=== PATIENT | female | born 1960 | race African-American/Black ===

== ENCOUNTER 2023-01-18 14:59 | Inpatient (IN) | payer OTHER ==
[2023-01-18 16:29] LABS: BASO % 0.6 % (0-2.0); EOS % 0.6 % (0-4.5); HEMATOCRIT 40.1 % (32.4-45.2); HEMOGLOBIN 13.7 GM/dL (10.7-15.3); LYMPH % 8.6 % (8-40); MCH 27.8 pg (25.7-33.7); MCHC 34.2 g/dl (32.0-36.0); MEAN CELL VOLUME 81.3 fl (80-96); MEAN PLT VOLUME 9.3 fl (7.5-11.1); MONO % 5.7 % (3.8-10.2); NEUT % 84.5 % (42.8-82.8); PLATELET COUNT 257 10^3/uL (134-434); RBC 4.92 M/mm3 (3.60-5.2); RDW 14.7 % (11.6-15.6); WHITE BLOOD COUNT 6.1 K/mm3 (4.0-10.0)
[2023-01-18 16:32] LABS: VENOUS BASE EXCESS -1.4 mmol/L (-2-2); VENOUS O2 SATURATION 40.6 % (70-80); VENOUS PH 7.317 (7.310-7.410)
[2023-01-18 16:37] LABS: INR 1.02 (0.83-1.09); PROTHROMBIN TIME (PATIENT) 11.8 SEC (9.7-13.0)
[2023-01-18 16:39] LABS: ACTIVATED PTT 30.1 SECONDS (25.2-36.5)
[2023-01-18 16:50] LABS: CHLORIDE 114 mmol/L (98-107); POTASSIUM 5.4 mmol/L (3.5-5.1); SODIUM 143 mmol/L (136-145)
[2023-01-18 16:52] LABS: ALBUMIN 3.7 g/dl (3.4-5.0); ANION GAP 5 MMOL/L (8-16); BLOOD UREA NITROGEN 89.5 mg/dL (7-18); CO2 25 mmol/L (21-32); GLUCOSE,RANDOM 140 mg/dL (74-106)
[2023-01-18 16:55] LABS: CREATININE 5.9 mg/dL (0.55-1.3); SGOT/AST 26 U/L (15-37); SGPT/ALT 16 U/L (13-61)
[2023-01-18 16:57] LABS: BILIRUBIN,TOTAL 0.4 mg/dL (0.2-1); TOT PROT 8.8 g/dl (6.4-8.2)
[2023-01-18 16:58] LABS: ALK PHOS 90 U/L (45-117)
[2023-01-18 17:03] LABS: CALCIUM 14.8 mg/dL (8.5-10.1)
[2023-01-18] MEDS ORDERED: SODIUM CHLORIDE 0.9% 500 ML INFUS.BAG IV ONE ×2 (17:15→17:25)
[2023-01-18 17:16] LABS: EPI CELLS 8 /uL (0-25.1); HYALINE CASTS 0 /uL (0-3.1); URINE APPEARANCE CLOUDY; URINE BACTERIA >9,000 /uL (0-1359); URINE BILIRUBIN NEGATIVE (NEGATIVE); URINE COLOR YELLOW; URINE GLUCOSE (UA) NEGATIVE (NEGATIVE); URINE KETONE NEGATIVE (NEGATIVE); URINE LEUK ESTERASE 3+ (NEGATIVE); URINE NITRITE POSITIVE (NEGATIVE); URINE PROTEIN 3+ (NEGATIVE); URINE RBC 10 /uL (0-23.9); URINE UROBILINOGEN 0.2 mg/dL (0.2-1.0); URINE WBC 682 /uL (0-25.8)
[2023-01-18] MEDS ORDERED: CEFTRIAXONE 1,000 MG in DEXTROSE 5%-WATER - 50 ML IVPB ONE (17:33)
[2023-01-18 17:39] LABS: YEAST NEGATIVE (NEGATIVE)
[2023-01-18] MEDS ORDERED: CEFTRIAXONE 1 GM/50 ML BAG ONE (17:56)
[2023-01-18] MEDS: CALCITONIN - SALMON SYNTHETIC 400 UNIT/2 ML VIAL IM SCH (18:15)
[2023-01-18 19:06] LABS: CHLORIDE 114 mmol/L (98-107); POTASSIUM 4.8 mmol/L (3.5-5.1); SODIUM 144 mmol/L (136-145)
[2023-01-18 19:08] LABS: ANION GAP 7 MMOL/L (8-16); BLOOD UREA NITROGEN 88.3 mg/dL (7-18); CO2 23 mmol/L (21-32); GLUCOSE,RANDOM 133 mg/dL (74-106)
[2023-01-18 19:17] LABS: CALCIUM 14.5 mg/dL (8.5-10.1)
[2023-01-18] MEDS: SODIUM CHLORIDE 1,000 ML IV SCH (22:04)
[2023-01-18 22:29] LABS: LIPASE 265 U/L (73-393)
[2023-01-19 00:51] VITALS: BMI 26.6
[2023-01-19] MEDS: CALCITONIN - SALMON SYNTHETIC 400 UNIT/2 ML VIAL IM SCH (06:35)
[2023-01-19] MEDS ORDERED: BISACODYL 5 MG TABLET.DR (FP) PO PRN (06:42)
[2023-01-19] MEDS ORDERED: ONDANSETRON *ODT* 4 MG TABLET SL PRN (06:45)
[2023-01-19] MEDS: cloNIDine HCL 0.1 MG TABLET PO SCH ×3 (07:05→21:30)
[2023-01-19 07:46] LABS: BASO % 0.6 % (0-2.0); EOS % 0.6 % (0-4.5); HEMATOCRIT 34.6 % (32.4-45.2); LYMPH % 6.6 % (8-40); MCHC 34.8 g/dl (32.0-36.0); MEAN CELL VOLUME 80.5 fl (80-96); MEAN PLT VOLUME 8.8 fl (7.5-11.1); MONO % 8.7 % (3.8-10.2); NEUT % 83.5 % (42.8-82.8); PLATELET COUNT 247 10^3/uL (134-434); RDW 14.7 % (11.6-15.6); WHITE BLOOD COUNT 7.3 K/mm3 (4.0-10.0)
[2023-01-19 08:00] LABS: POTASSIUM 4.5 mmol/L (3.5-5.1)
[2023-01-19 08:08] LABS: ALBUMIN 3.2 g/dl (3.4-5.0); BLOOD UREA NITROGEN 80.7 mg/dL (7-18); CALCIUM 13.1 mg/dL (8.5-10.1)
[2023-01-19 08:09] LABS: CREATININE 5.5 mg/dL (0.55-1.3)
[2023-01-19 08:10] LABS: CHOLESTEROL 207 mg/dL (50-200)
[2023-01-19 08:11] LABS: BILIRUBIN,TOTAL 0.4 mg/dL (0.2-1); LDL CHOLESTEROL (ONLY SJRH) 132 mg/dL (5-100); TOT PROT 7.8 g/dl (6.4-8.2)
[2023-01-19 08:14] LABS: HDL CHOLESTEROL 36 mg/dL (40-60)
[2023-01-19] MEDS: CALCIUM ACETATE 667 MG CAPSULE (FP) PO SCH ×3 (09:18→18:28)
[2023-01-19] MEDS: CEFTRIAXONE 1 GM in DEXTROSE 5%-WATER - 50 ML IVPB SCH (09:28)
[2023-01-19] MEDS: SERTRALINE HCL 50 MG TABLET (FP) PO SCH (09:28)
[2023-01-19] MEDS: CARVEDILOL 25 MG TABLET (FP) PO SCH ×2 (09:28→21:30)
[2023-01-19] MEDS: SODIUM CHLORIDE 1,000 ML IV SCH (09:29)
[2023-01-19] MEDS ORDERED: SODIUM CHLORIDE 0.45% 1,000 ML IV SCH (11:45)
[2023-01-19] MEDS: SODIUM CHLORIDE 0.45% 1,000 ML IV SCH (13:00)
[2023-01-20] MEDS: cloNIDine HCL 0.1 MG TABLET PO SCH ×3 (06:03→21:33)
[2023-01-20 07:40] LABS: BLOOD UREA NITROGEN 70.6 mg/dL (7-18); CREATININE 4.9 mg/dL (0.55-1.3)
[2023-01-20 07:41] LABS: BILIRUBIN,TOTAL 0.3 mg/dL (0.2-1)
[2023-01-20 07:42] LABS: TOT PROT 7.5 g/dl (6.4-8.2)
[2023-01-20 07:44] LABS: CALCIUM 11.9 mg/dL (8.5-10.1)
[2023-01-20] MEDS: CALCIUM ACETATE 667 MG CAPSULE (FP) PO SCH ×3 (07:51→17:10)
[2023-01-20] MEDS: CARVEDILOL 25 MG TABLET (FP) PO SCH ×3 (08:54→21:33)
[2023-01-20] MEDS: SERTRALINE HCL 50 MG TABLET (FP) PO SCH ×2 (08:54→09:10)
[2023-01-20] MEDS: CEFTRIAXONE 1 GM in DEXTROSE 5%-WATER - 50 ML IVPB SCH (09:12)
[2023-01-20] MEDS: SODIUM CHLORIDE 0.45% 1,000 ML IV SCH ×2 (14:00→21:45)
[2023-01-20] MEDS: ASPIRIN 81 MG CHEWABLE TABLETS PO SCH (14:55)
[2023-01-20] MEDS: HEPARIN NA (PORCINE) 5,000 UNITS/ML 1ML VIAL SQ SCH (21:32)
[2023-01-20] MEDS: ATORVASTATIN CA 40 MG TABLET (FP) PO SCH (21:32)
[2023-01-21] MEDS: cloNIDine HCL 0.1 MG TABLET PO SCH ×3 (05:59→22:17)
[2023-01-21] MEDS: SODIUM CHLORIDE 0.45% 1,000 ML IV SCH ×3 (05:59→14:53)
[2023-01-21] MEDS: CARVEDILOL 25 MG TABLET (FP) PO SCH ×2 (09:38→22:16)
[2023-01-21] MEDS: ASPIRIN 81 MG CHEWABLE TABLETS PO SCH (09:38)
[2023-01-21] MEDS: CALCIUM ACETATE 667 MG CAPSULE (FP) PO SCH ×3 (09:38→18:56)
[2023-01-21] MEDS: CEFTRIAXONE 1 GM in DEXTROSE 5%-WATER - 50 ML IVPB SCH (09:38)
[2023-01-21] MEDS: SERTRALINE HCL 50 MG TABLET (FP) PO SCH (09:38)
[2023-01-21] MEDS: HEPARIN NA (PORCINE) 5,000 UNITS/ML 1ML VIAL SQ SCH ×2 (09:38→22:16)
[2023-01-21] MEDS ORDERED: amLODIPine BESYLATE 5 MG TABLET (FP) PO SCH (10:00)
[2023-01-21] MEDS: ATORVASTATIN CA 40 MG TABLET (FP) PO SCH (22:15)
[2023-01-22] MEDS: cloNIDine HCL 0.1 MG TABLET PO SCH ×5 (06:52→22:40)
[2023-01-22] MEDS: SODIUM CHLORIDE 0.45% 1,000 ML IV SCH ×2 (08:58→15:01)
[2023-01-22] MEDS: CALCIUM ACETATE 667 MG CAPSULE (FP) PO SCH ×4 (09:00→17:45)
[2023-01-22] MEDS ORDERED: MEGESTROL ACETATE 400 MG/10 ML UNIT DOSE CUP PO SCH (10:00)
[2023-01-22] MEDS ORDERED: amLODIPine BESYLATE 10 MG TABLET (FP) PO SCH (10:00)
[2023-01-22 10:37] LABS: BASO % 0.7 % (0-2.0); EOS % 3.3 % (0-4.5); HEMATOCRIT 34.6 % (32.4-45.2); HEMOGLOBIN 11.7 GM/dL (10.7-15.3); LYMPH % 11.1 % (8-40); MCH 26.9 pg (25.7-33.7); MCHC 33.9 g/dl (32.0-36.0); MEAN CELL VOLUME 79.4 fl (80-96); MEAN PLT VOLUME 7.9 fl (7.5-11.1); MONO % 9.8 % (3.8-10.2); NEUT % 75.1 % (42.8-82.8); PLATELET COUNT 241 10^3/uL (134-434); RBC 4.36 M/mm3 (3.60-5.2); RDW 14.5 % (11.6-15.6); WHITE BLOOD COUNT 6.2 K/mm3 (4.0-10.0)
[2023-01-22] MEDS: CEFTRIAXONE 1 GM in DEXTROSE 5%-WATER - 50 ML IVPB SCH (10:38)
[2023-01-22] MEDS: ASPIRIN 81 MG CHEWABLE TABLETS PO SCH (10:39)
[2023-01-22] MEDS: HEPARIN NA (PORCINE) 5,000 UNITS/ML 1ML VIAL SQ SCH ×3 (10:39→22:39)
[2023-01-22] MEDS: SERTRALINE HCL 50 MG TABLET (FP) PO SCH (10:40)
[2023-01-22] MEDS: CARVEDILOL 25 MG TABLET (FP) PO SCH (10:46)
[2023-01-22 11:00] LABS: POTASSIUM 3.8 mmol/L (3.5-5.1)
[2023-01-22 11:05] LABS: CREATININE 3.7 mg/dL (0.55-1.3)
[2023-01-22 11:07] LABS: BILIRUBIN,TOTAL 0.3 mg/dL (0.2-1); TOT PROT 7.2 g/dl (6.4-8.2)
[2023-01-22] MEDS ORDERED: SODIUM CHLORIDE 0.45% 1,000 ML IV SCH (14:30)
[2023-01-22] MEDS ORDERED: ONDANSETRON *ODT* 4 MG TABLET SL PRN (14:30)
[2023-01-22] MEDS: METOPROLOL TARTRATE 5 MG/5 ML VIAL IVPB SCH ×2 (16:10→22:27)
[2023-01-22] MEDS: DEXTROSE 5%-0.45% SALINE 1,000 ML IV SCH (16:15)
[2023-01-22] MEDS: BISACODYL 5 MG TABLET.DR (FP) PO PRN (18:17)
[2023-01-22] MEDS: hydrALAZINE HCL 20 MG/ML VIAL IVPB PRN (20:35)
[2023-01-22] MEDS ORDERED: CARVEDILOL 25 MG TABLET (FP) PO SCH (22:00)
[2023-01-22] MEDS ORDERED: MIRTAZAPINE 15 MG TABLET (FP) PO SCH (22:00)
[2023-01-22] MEDS ORDERED: cloNIDine HCL 0.1 MG TABLET PO SCH (22:00)
[2023-01-22] MEDS: MIRTAZAPINE 15 MG TABLET (FP) PO SCH ×2 (22:28→22:40)
[2023-01-22] MEDS: ATORVASTATIN CA 40 MG TABLET (FP) PO SCH ×2 (22:29→22:40)
[2023-01-23] MEDS: METOPROLOL TARTRATE 5 MG/5 ML VIAL IVPB SCH ×6 (01:06→21:33)
[2023-01-23] MEDS: hydrALAZINE HCL 20 MG/ML VIAL IVPB PRN ×3 (04:07→17:53)
[2023-01-23] MEDS ORDERED: PHENYLEPHRINE HCL/COCOA BUTTER 1 EACH SUPP.RECT RC ONE (04:45)
[2023-01-23] MEDS: cloNIDine HCL 0.1 MG TABLET PO SCH (05:23)
[2023-01-23] MEDS ORDERED: hydrALAZINE HCL 20 MG/ML VIAL IVPUSH PRN (05:29)
[2023-01-23] MEDS ORDERED: CARVEDILOL 6.25 MG TABLET (FP) PO SCH (10:00)
[2023-01-23] MEDS ORDERED: cloNIDine-TTS 0.2 MG/24 HOURS PATCH.TDWK TD SCH (10:00)
[2023-01-23] MEDS: DEXTROSE 5%-0.45% SALINE 1,000 ML IV SCH ×2 (10:48→12:04)
[2023-01-23] MEDS: CEFTRIAXONE 1 GM in DEXTROSE 5%-WATER - 50 ML IVPB SCH (10:50)
[2023-01-23] MEDS: SERTRALINE HCL 50 MG TABLET (FP) PO SCH (11:42)
[2023-01-23] MEDS: amLODIPine BESYLATE 10 MG TABLET (FP) PO SCH (11:42)
[2023-01-23] MEDS: CALCIUM ACETATE 667 MG CAPSULE (FP) PO SCH ×4 (11:48→18:18)
[2023-01-23] MEDS: ASPIRIN 81 MG CHEWABLE TABLETS PO SCH ×2 (11:49→11:57)
[2023-01-23] MEDS: HEPARIN NA (PORCINE) 5,000 UNITS/ML 1ML VIAL SQ SCH ×2 (11:53→21:33)
[2023-01-23] MEDS: MEGESTROL ACETATE 400 MG/10 ML UNIT DOSE CUP PO SCH (11:57)
[2023-01-23] MEDS: ATORVASTATIN CA 40 MG TABLET (FP) PO SCH (21:33)
[2023-01-23] MEDS: hydrALAZINE HCL 20 MG/ML VIAL IVPB SCH (21:33)
[2023-01-23] MEDS: MIRTAZAPINE 15 MG TABLET (FP) PO SCH (21:34)
[2023-01-24] MEDS: hydrALAZINE HCL 20 MG/ML VIAL IVPB SCH ×4 (02:14→18:46)
[2023-01-24] MEDS: METOPROLOL TARTRATE 5 MG/5 ML VIAL IVPB SCH ×6 (02:14→21:52)
[2023-01-24 09:08] LABS: CHLORIDE 111 mmol/L (98-107); SODIUM 139 mmol/L (136-145)
[2023-01-24 09:13] LABS: CALCIUM 9.9 mg/dL (8.5-10.1)
[2023-01-24 09:14] LABS: ALBUMIN 2.6 g/dl (3.4-5.0); CO2 21 mmol/L (21-32); GLUCOSE,RANDOM 138 mg/dL (74-106)
[2023-01-24 09:15] LABS: CREATININE 3.3 mg/dL (0.55-1.3); SGPT/ALT 12 U/L (13-61)
[2023-01-24 09:17] LABS: BILIRUBIN,TOTAL 0.3 mg/dL (0.2-1); SGOT/AST 13 U/L (15-37); TOT PROT 6.2 g/dl (6.4-8.2)
[2023-01-24 09:18] LABS: ALK PHOS 65 U/L (45-117)
[2023-01-24 09:41] LABS: ANION GAP 7 MMOL/L (8-16); POTASSIUM 2.9 mmol/L (3.5-5.1)
[2023-01-24] MEDS: ASPIRIN 81 MG CHEWABLE TABLETS PO SCH (09:58)
[2023-01-24] MEDS: CALCIUM ACETATE 667 MG CAPSULE (FP) PO SCH ×2 (09:58→11:45)
[2023-01-24] MEDS: HEPARIN NA (PORCINE) 5,000 UNITS/ML 1ML VIAL SQ SCH ×2 (10:03→21:53)
[2023-01-24] MEDS: CEFTRIAXONE 1 GM in DEXTROSE 5%-WATER - 50 ML IVPB SCH (10:06)
[2023-01-24] MEDS: amLODIPine BESYLATE 10 MG TABLET (FP) PO SCH (10:06)
[2023-01-24] MEDS: MEGESTROL ACETATE 400 MG/10 ML UNIT DOSE CUP PO SCH (10:06)
[2023-01-24] MEDS: SERTRALINE HCL 50 MG TABLET (FP) PO SCH (10:07)
[2023-01-24] MEDS: DEXTROSE 5%-0.45% SALINE 1,000 ML IV SCH (10:27)
[2023-01-24] MEDS ORDERED: DEXTROSE 5%-0.45% SALINE 990 ML with POTASSIUM CHLORIDE 20 MEQ IV SCH (10:35)
[2023-01-24] MEDS: KCL 10 MEQ IVPB 10 MEQ/100 ML INFUS.BAG IVPB SCH (11:45)
[2023-01-24] MEDS ORDERED: POTASSIUM CHLORIDE ORAL LIQUID 20 MEQ/15 ML PO ONE (13:24)
[2023-01-24] MEDS: DEXTROSE 5%-0.45% SALINE 990 ML with POTASSIUM CHLORIDE 20 MEQ IV SCH (15:22)
[2023-01-24] MEDS: ATORVASTATIN CA 40 MG TABLET (FP) PO SCH (21:53)
[2023-01-24] MEDS: MIRTAZAPINE 15 MG TABLET (FP) PO SCH (21:53)
[2023-01-25] MEDS: DEXTROSE 5%-0.45% SALINE 990 ML with POTASSIUM CHLORIDE 20 MEQ IV SCH ×2 (01:05→13:24)
[2023-01-25] MEDS: hydrALAZINE HCL 20 MG/ML VIAL IVPB SCH ×4 (01:37→18:31)
[2023-01-25] MEDS: METOPROLOL TARTRATE 5 MG/5 ML VIAL IVPB SCH ×6 (02:29→21:33)
[2023-01-25 08:27] LABS: POTASSIUM 3.4 mmol/L (3.5-5.1)
[2023-01-25 08:36] LABS: CALCIUM 9.9 mg/dL (8.5-10.1)
[2023-01-25 08:37] LABS: ALBUMIN 2.4 g/dl (3.4-5.0)
[2023-01-25 08:39] LABS: PHOSPHOROUS 2.4 mg/dL (2.5-4.9)
[2023-01-25 08:40] LABS: CREATININE 3.2 mg/dL (0.55-1.3)
[2023-01-25 08:41] LABS: BILIRUBIN,TOTAL 0.4 mg/dL (0.2-1); TOT PROT 5.7 g/dl (6.4-8.2)
[2023-01-25] MEDS: ASPIRIN 81 MG CHEWABLE TABLETS PO SCH (10:12)
[2023-01-25] MEDS: MEGESTROL ACETATE 400 MG/10 ML UNIT DOSE CUP PO SCH (10:16)
[2023-01-25] MEDS: CEFTRIAXONE 1 GM in DEXTROSE 5%-WATER - 50 ML IVPB SCH (10:16)
[2023-01-25] MEDS: amLODIPine BESYLATE 10 MG TABLET (FP) PO SCH (10:16)
[2023-01-25] MEDS: HEPARIN NA (PORCINE) 5,000 UNITS/ML 1ML VIAL SQ SCH ×2 (10:16→22:22)
[2023-01-25] MEDS ORDERED: POTASSIUM PHOSPHATE 30 MM in SODIUM CHLORIDE 500 ML IVPB ONE (15:00)
[2023-01-25 18:12] LABS: FREE KAPPA,SERUM 160.3 mg/L (3.3-19.4)
[2023-01-25] MEDS: LORazepam 2 MG/ML SDV VIAL IVPUSH PRN (21:28)
[2023-01-25] MEDS: ATORVASTATIN CA 40 MG TABLET (FP) PO SCH (22:22)
[2023-01-25] MEDS: MIRTAZAPINE 15 MG TABLET (FP) PO SCH (22:22)
[2023-01-26] MEDS: hydrALAZINE HCL 20 MG/ML VIAL IVPB SCH ×4 (00:42→19:30)
[2023-01-26] MEDS: METOPROLOL TARTRATE 5 MG/5 ML VIAL IVPB SCH ×6 (01:20→21:44)
[2023-01-26] MEDS: LORazepam 2 MG/ML SDV VIAL IVPUSH PRN (03:50)
[2023-01-26] MEDS: HEPARIN NA (PORCINE) 5,000 UNITS/ML 1ML VIAL SQ SCH ×3 (09:25→21:44)
[2023-01-26] MEDS: CEFTRIAXONE 1 GM in DEXTROSE 5%-WATER - 50 ML IVPB SCH (09:25)
[2023-01-26] MEDS: amLODIPine BESYLATE 10 MG TABLET (FP) PO SCH ×2 (09:26→09:37)
[2023-01-26] MEDS: MEGESTROL ACETATE 400 MG/10 ML UNIT DOSE CUP PO SCH ×2 (09:26→09:37)
[2023-01-26] MEDS: ASPIRIN 81 MG CHEWABLE TABLETS PO SCH ×2 (09:26→09:37)
[2023-01-26] MEDS ORDERED: DEXTROSE 5%-0.45% SALINE 990 ML with POTASSIUM CHLORIDE 20 MEQ IV SCH (13:16)
[2023-01-26] MEDS ORDERED: AMINO ACIDS 4.25%/D5W 1,000 ML IV SCH (13:30)
[2023-01-26] MEDS ORDERED: POTASSIUM CHLORIDE ORAL LIQUID 20 MEQ/15 ML PO ONE (14:33)
[2023-01-26] MEDS ORDERED: KCL 10 MEQ IVPB 10 MEQ/100 ML INFUS.BAG IVPB SCH (14:45)
[2023-01-26] MEDS: POTASSIUM CHLORIDE 20 MEQ in AMINO ACIDS 4.25%/D5W 1,000 ML IV SCH (15:31)
[2023-01-26] MEDS: ATORVASTATIN CA 40 MG TABLET (FP) PO SCH (21:44)
[2023-01-26] MEDS: MIRTAZAPINE 15 MG TABLET (FP) PO SCH (21:44)
[2023-01-27] MEDS: METOPROLOL TARTRATE 5 MG/5 ML VIAL IVPB SCH ×6 (01:17→22:30)
[2023-01-27] MEDS: POTASSIUM CHLORIDE 20 MEQ in AMINO ACIDS 4.25%/D5W 1,000 ML IV SCH ×2 (01:17→14:44)
[2023-01-27] MEDS: hydrALAZINE HCL 20 MG/ML VIAL IVPB SCH ×4 (01:17→19:30)
[2023-01-27 07:50] LABS: BASO % 0.8 % (0-2.0); EOS % 5.5 % (0-4.5); HEMATOCRIT 29.1 % (32.4-45.2); HEMOGLOBIN 10.4 GM/dL (10.7-15.3); LYMPH % 13.9 % (8-40); MCH 28.5 pg (25.7-33.7); MCHC 35.7 g/dl (32.0-36.0); MEAN CELL VOLUME 80.1 fl (80-96); MEAN PLT VOLUME 8.2 fl (7.5-11.1); MONO % 15.5 % (3.8-10.2); NEUT % 64.3 % (42.8-82.8); PLATELET COUNT 231 10^3/uL (134-434); RBC 3.64 M/mm3 (3.60-5.2); RDW 15.1 % (11.6-15.6); WHITE BLOOD COUNT 4.5 K/mm3 (4.0-10.0)
[2023-01-27 08:07] LABS: POTASSIUM 3.8 mmol/L (3.5-5.1)
[2023-01-27 08:09] LABS: CALCIUM 9.6 mg/dL (8.5-10.1)
[2023-01-27 08:10] LABS: ALBUMIN 2.5 g/dl (3.4-5.0); BLOOD UREA NITROGEN 24.8 mg/dL (7-18)
[2023-01-27 08:13] LABS: CREATININE 3.2 mg/dL (0.55-1.3)
[2023-01-27 08:14] LABS: BILIRUBIN,TOTAL 0.3 mg/dL (0.2-1)
[2023-01-27 08:15] LABS: TOT PROT 5.8 g/dl (6.4-8.2)
[2023-01-27] MEDS: HEPARIN NA (PORCINE) 5,000 UNITS/ML 1ML VIAL SQ SCH ×2 (10:15→22:29)
[2023-01-27] MEDS: MEGESTROL ACETATE 400 MG/10 ML UNIT DOSE CUP PO SCH (10:15)
[2023-01-27] MEDS: ASPIRIN 81 MG CHEWABLE TABLETS PO SCH (10:15)
[2023-01-27] MEDS: amLODIPine BESYLATE 10 MG TABLET (FP) PO SCH (10:16)
[2023-01-27] MEDS: CEFTRIAXONE 1 GM in DEXTROSE 5%-WATER - 50 ML IVPB SCH (12:07)
[2023-01-27] MEDS: ATORVASTATIN CA 40 MG TABLET (FP) PO SCH (22:30)
[2023-01-27] MEDS: OLANZapine 5 MG TABLET PO SCH (22:30)
[2023-01-28] MEDS: hydrALAZINE HCL 20 MG/ML VIAL IVPB SCH ×2 (01:12→08:01)
[2023-01-28] MEDS: POTASSIUM CHLORIDE 20 MEQ in AMINO ACIDS 4.25%/D5W 1,000 ML IV SCH ×2 (01:12→14:01)
[2023-01-28] MEDS: METOPROLOL TARTRATE 5 MG/5 ML VIAL IVPB SCH ×6 (01:13→21:01)
[2023-01-28] MEDS: ASPIRIN 81 MG CHEWABLE TABLETS PO SCH (09:28)
[2023-01-28] MEDS: hydrALAZINE HCL 20 MG/ML VIAL IM SCH ×3 (09:28→20:59)
[2023-01-28] MEDS: HEPARIN NA (PORCINE) 5,000 UNITS/ML 1ML VIAL SQ SCH ×2 (09:28→21:01)
[2023-01-28] MEDS: CEFTRIAXONE 1 GM in DEXTROSE 5%-WATER - 50 ML IVPB SCH (09:29)
[2023-01-28] MEDS: amLODIPine BESYLATE 10 MG TABLET (FP) PO SCH (09:29)
[2023-01-28] MEDS: MEGESTROL ACETATE 400 MG/10 ML UNIT DOSE CUP PO SCH (09:29)
[2023-01-28] MEDS: OLANZapine 5 MG TABLET PO SCH (21:01)
[2023-01-28] MEDS: ATORVASTATIN CA 40 MG TABLET (FP) PO SCH (21:01)
[2023-01-29] MEDS: POTASSIUM CHLORIDE 20 MEQ in AMINO ACIDS 4.25%/D5W 1,000 ML IV SCH ×2 (01:23→14:00)
[2023-01-29] MEDS: METOPROLOL TARTRATE 5 MG/5 ML VIAL IVPB SCH ×6 (01:24→22:49)
[2023-01-29] MEDS: hydrALAZINE HCL 20 MG/ML VIAL IM SCH ×4 (03:06→22:49)
[2023-01-29] MEDS: ASPIRIN 81 MG CHEWABLE TABLETS PO SCH (09:00)
[2023-01-29] MEDS: HEPARIN NA (PORCINE) 5,000 UNITS/ML 1ML VIAL SQ SCH (09:00)
[2023-01-29] MEDS: CEFTRIAXONE 1 GM in DEXTROSE 5%-WATER - 50 ML IVPB SCH (09:00)
[2023-01-29] MEDS: MEGESTROL ACETATE 400 MG/10 ML UNIT DOSE CUP PO SCH (09:00)
[2023-01-29] MEDS: amLODIPine BESYLATE 10 MG TABLET (FP) PO SCH (15:29)
[2023-01-29] MEDS: ATORVASTATIN CA 40 MG TABLET (FP) PO SCH (22:49)
[2023-01-29] MEDS: OLANZapine 5 MG TABLET PO SCH (22:50)
[2023-01-30] MEDS: POTASSIUM CHLORIDE 20 MEQ in AMINO ACIDS 4.25%/D5W 1,000 ML IV SCH ×2 (02:54→16:51)
[2023-01-30] MEDS: METOPROLOL TARTRATE 5 MG/5 ML VIAL IVPB SCH ×6 (02:57→21:48)
[2023-01-30] MEDS: hydrALAZINE HCL 20 MG/ML VIAL IM SCH ×4 (03:35→21:50)
[2023-01-30] MEDS: amLODIPine BESYLATE 10 MG TABLET (FP) PO SCH (11:07)
[2023-01-30] MEDS: ASPIRIN 81 MG CHEWABLE TABLETS PO SCH (11:38)
[2023-01-30] MEDS: MEGESTROL ACETATE 400 MG/10 ML UNIT DOSE CUP PO SCH (13:49)
[2023-01-30] MEDS: THIAMINE HCL 200 MG/2 ML VIAL IVPB SCH (16:11)
[2023-01-30] MEDS: OLANZapine 5 MG TABLET PO SCH (21:51)
[2023-01-30] MEDS: ATORVASTATIN CA 40 MG TABLET (FP) PO SCH (21:51)
[2023-01-30 22:06] LABS: ANTIGLOMERULAR BASEMENT MEN.AB <0.2 units (0.0-0.9)
[2023-01-30] MEDS: BISACODYL 5 MG TABLET.DR (FP) PO PRN (23:15)
[2023-01-31] MEDS: POTASSIUM CHLORIDE 20 MEQ in AMINO ACIDS 4.25%/D5W 1,000 ML IV SCH ×2 (02:42→17:07)
[2023-01-31] MEDS: METOPROLOL TARTRATE 5 MG/5 ML VIAL IVPB SCH ×6 (02:42→21:11)
[2023-01-31] MEDS: hydrALAZINE HCL 20 MG/ML VIAL IM SCH ×4 (02:45→21:13)
[2023-01-31] MEDS: amLODIPine BESYLATE 10 MG TABLET (FP) PO SCH ×2 (09:15→09:41)
[2023-01-31] MEDS: ASPIRIN 81 MG CHEWABLE TABLETS PO SCH ×2 (09:15→09:40)
[2023-01-31] MEDS: MEGESTROL ACETATE 400 MG/10 ML UNIT DOSE CUP PO SCH (09:15)
[2023-01-31] MEDS: THIAMINE HCL 200 MG/2 ML VIAL IVPB SCH (09:16)
[2023-01-31 17:07] LABS: ATYPICAL pANCA <1:20 titer (Neg:<1:20)
[2023-01-31] MEDS: ATORVASTATIN CA 40 MG TABLET (FP) PO SCH (21:13)
[2023-01-31] MEDS: OLANZapine 5 MG TABLET PO SCH (21:14)
[2023-02-01] MEDS: METOPROLOL TARTRATE 5 MG/5 ML VIAL IVPB SCH ×6 (02:42→21:20)
[2023-02-01] MEDS: hydrALAZINE HCL 20 MG/ML VIAL IM SCH ×4 (02:42→21:21)
[2023-02-01] MEDS: POTASSIUM CHLORIDE 20 MEQ in AMINO ACIDS 4.25%/D5W 1,000 ML IV SCH ×2 (06:27→13:30)
[2023-02-01 08:43] LABS: PROTHROMBIN TIME (PATIENT) 11.6 SEC (9.7-13.0)
[2023-02-01 08:51] LABS: BASO % 0.9 % (0-2.0); EOS % 4.7 % (0-4.5); HEMATOCRIT 30.1 % (32.4-45.2); HEMOGLOBIN 10.2 GM/dL (10.7-15.3); LYMPH % 16.1 % (8-40); MCH 27.6 pg (25.7-33.7); MEAN CELL VOLUME 81.1 fl (80-96); MEAN PLT VOLUME 8.5 fl (7.5-11.1); MONO % 10.2 % (3.8-10.2); NEUT % 68.1 % (42.8-82.8); PLATELET COUNT 257 10^3/uL (134-434); RBC 3.71 M/mm3 (3.60-5.2); RDW 16.1 % (11.6-15.6); WHITE BLOOD COUNT 5.7 K/mm3 (4.0-10.0)
[2023-02-01 09:01] LABS: ALBUMIN 2.7 g/dl (3.4-5.0); CALCIUM 10.2 mg/dL (8.5-10.1)
[2023-02-01 09:04] LABS: CREATININE 3.1 mg/dL (0.55-1.3)
[2023-02-01 09:06] LABS: BILIRUBIN,TOTAL 0.3 mg/dL (0.2-1); TOT PROT 6.2 g/dl (6.4-8.2)
[2023-02-01] MEDS: ASPIRIN 81 MG CHEWABLE TABLETS PO SCH (10:07)
[2023-02-01] MEDS: MEGESTROL ACETATE 400 MG/10 ML UNIT DOSE CUP PO SCH (10:09)
[2023-02-01] MEDS: amLODIPine BESYLATE 10 MG TABLET (FP) PO SCH (10:10)
[2023-02-01] MEDS: THIAMINE HCL 200 MG/2 ML VIAL IVPB SCH (10:10)
[2023-02-01] MEDS: OLANZapine 5 MG TABLET PO SCH (21:21)
[2023-02-01] MEDS: ATORVASTATIN CA 40 MG TABLET (FP) PO SCH (21:21)
[2023-02-02] MEDS: METOPROLOL TARTRATE 5 MG/5 ML VIAL IVPB SCH ×6 (02:30→22:23)
[2023-02-02] MEDS: hydrALAZINE HCL 20 MG/ML VIAL IM SCH ×4 (02:40→21:28)
[2023-02-02] MEDS: POTASSIUM CHLORIDE 20 MEQ in AMINO ACIDS 4.25%/D5W 1,000 ML IV SCH ×2 (06:28→15:54)
[2023-02-02] MEDS: ASPIRIN 81 MG CHEWABLE TABLETS PO SCH (10:21)
[2023-02-02] MEDS: MEGESTROL ACETATE 400 MG/10 ML UNIT DOSE CUP PO SCH ×2 (10:22→10:44)
[2023-02-02] MEDS: amLODIPine BESYLATE 10 MG TABLET (FP) PO SCH (10:22)
[2023-02-02] MEDS: THIAMINE HCL 200 MG/2 ML VIAL IVPB SCH (10:23)
[2023-02-02] MEDS: ATORVASTATIN CA 40 MG TABLET (FP) PO SCH (22:24)
[2023-02-02] MEDS: OLANZapine 5 MG TABLET PO SCH (22:24)
[2023-02-03] MEDS: POTASSIUM CHLORIDE 20 MEQ in AMINO ACIDS 4.25%/D5W 1,000 ML IV SCH (00:40)
[2023-02-03] MEDS: METOPROLOL TARTRATE 5 MG/5 ML VIAL IVPB SCH ×6 (02:30→21:51)
[2023-02-03] MEDS: hydrALAZINE HCL 20 MG/ML VIAL IM SCH ×4 (03:36→21:02)
[2023-02-03] MEDS ORDERED: cloNIDine-TTS 0.3 MG /24 HRS PATCH.TDWK TD SCH (10:00)
[2023-02-03] MEDS: THIAMINE HCL 200 MG/2 ML VIAL IVPB SCH (11:56)
[2023-02-03] MEDS: ASPIRIN 81 MG CHEWABLE TABLETS PO SCH (12:44)
[2023-02-03] MEDS: amLODIPine BESYLATE 10 MG TABLET (FP) PO SCH (12:44)
[2023-02-03] MEDS: MEGESTROL ACETATE 400 MG/10 ML UNIT DOSE CUP PO SCH (12:44)
[2023-02-04] MEDS: POTASSIUM CHLORIDE 20 MEQ in AMINO ACIDS 4.25%/D5W 1,000 ML IV SCH ×3 (00:05→18:05)
[2023-02-04] MEDS: OLANZapine 5 MG TABLET PO SCH ×2 (00:09→21:31)
[2023-02-04] MEDS: ATORVASTATIN CA 40 MG TABLET (FP) PO SCH ×2 (00:09→21:31)
[2023-02-04] MEDS: METOPROLOL TARTRATE 5 MG/5 ML VIAL IVPB SCH ×6 (02:38→21:31)
[2023-02-04] MEDS: hydrALAZINE HCL 20 MG/ML VIAL IM SCH ×4 (03:40→21:31)
[2023-02-04] MEDS: ASPIRIN 81 MG CHEWABLE TABLETS PO SCH (09:01)
[2023-02-04] MEDS: amLODIPine BESYLATE 10 MG TABLET (FP) PO SCH (09:01)
[2023-02-04] MEDS: MEGESTROL ACETATE 400 MG/10 ML UNIT DOSE CUP PO SCH (10:12)
[2023-02-04] MEDS ORDERED: METOPROLOL TARTRATE 25 MG TABLET (FP) PO SCH (11:00)
[2023-02-04] MEDS ORDERED: hydrALAZINE HCL 20 MG/ML VIAL IM PRN (11:05)
[2023-02-04] MEDS: LABETALOL HCL 200 MG TABLET (FP) PO SCH ×2 (11:43→11:45)
[2023-02-05] MEDS: POTASSIUM CHLORIDE 20 MEQ in AMINO ACIDS 4.25%/D5W 1,000 ML IV SCH ×3 (00:15→21:04)
[2023-02-05] MEDS: METOPROLOL TARTRATE 5 MG/5 ML VIAL IVPB SCH ×2 (01:10→05:54)
[2023-02-05] MEDS: hydrALAZINE HCL 20 MG/ML VIAL IM SCH ×6 (02:13→21:45)
[2023-02-05] MEDS: NEBIVOLOL 10 MG TABLET (FP) PO SCH (09:38)
[2023-02-05] MEDS: ASPIRIN 81 MG CHEWABLE TABLETS PO SCH (09:38)
[2023-02-05] MEDS: amLODIPine BESYLATE 10 MG TABLET (FP) PO SCH (09:38)
[2023-02-05] MEDS: MEGESTROL ACETATE 400 MG/10 ML UNIT DOSE CUP PO SCH (09:38)
[2023-02-05] MEDS: OLANZapine 5 MG TABLET PO SCH (21:04)
[2023-02-05] MEDS: ATORVASTATIN CA 40 MG TABLET (FP) PO SCH (21:04)
[2023-02-06] MEDS: POTASSIUM CHLORIDE 20 MEQ in AMINO ACIDS 4.25%/D5W 1,000 ML IV SCH (00:15)
[2023-02-06] MEDS: hydrALAZINE HCL 20 MG/ML VIAL IM SCH ×4 (02:01→22:07)
[2023-02-06] MEDS: ASPIRIN 81 MG CHEWABLE TABLETS PO SCH (09:28)
[2023-02-06] MEDS: NEBIVOLOL 10 MG TABLET (FP) PO SCH (09:28)
[2023-02-06] MEDS: amLODIPine BESYLATE 10 MG TABLET (FP) PO SCH (09:29)
[2023-02-06] MEDS: MEGESTROL ACETATE 400 MG/10 ML UNIT DOSE CUP PO SCH (09:29)
[2023-02-06] MEDS: ATORVASTATIN CA 40 MG TABLET (FP) PO SCH (22:09)
[2023-02-06] MEDS: OLANZapine 5 MG TABLET PO SCH (22:10)
[2023-02-07] MEDS: hydrALAZINE HCL 20 MG/ML VIAL IM SCH ×4 (02:42→21:18)
[2023-02-07] MEDS: NEBIVOLOL 10 MG TABLET (FP) PO SCH (13:32)
[2023-02-07] MEDS: ASPIRIN 81 MG CHEWABLE TABLETS PO SCH (13:32)
[2023-02-07] MEDS: MEGESTROL ACETATE 400 MG/10 ML UNIT DOSE CUP PO SCH (13:36)
[2023-02-07] MEDS: amLODIPine BESYLATE 10 MG TABLET (FP) PO SCH (13:36)
[2023-02-07] MEDS: OLANZapine 5 MG TABLET PO SCH (21:22)
[2023-02-07] MEDS: ATORVASTATIN CA 40 MG TABLET (FP) PO SCH (21:22)
[2023-02-08] MEDS: hydrALAZINE HCL 20 MG/ML VIAL IM SCH ×4 (02:32→21:39)
[2023-02-08] MEDS: amLODIPine BESYLATE 10 MG TABLET (FP) PO SCH (09:33)
[2023-02-08] MEDS: ASPIRIN 81 MG CHEWABLE TABLETS PO SCH (09:33)
[2023-02-08] MEDS: NEBIVOLOL 10 MG TABLET (FP) PO SCH (09:34)
[2023-02-08] MEDS: MEGESTROL ACETATE 400 MG/10 ML UNIT DOSE CUP PO SCH (09:35)
[2023-02-08] MEDS: OLANZapine 5 MG TABLET PO SCH (23:05)
[2023-02-08] MEDS: ATORVASTATIN CA 40 MG TABLET (FP) PO SCH (23:05)
[2023-02-09] MEDS: hydrALAZINE HCL 20 MG/ML VIAL IM SCH ×3 (02:02→15:23)
[2023-02-09 05:58] VITALS: RESP 18
[2023-02-09] MEDS: MEGESTROL ACETATE 400 MG/10 ML UNIT DOSE CUP PO SCH (09:44)
[2023-02-09] MEDS: ASPIRIN 81 MG CHEWABLE TABLETS PO SCH (09:44)
[2023-02-09] MEDS: NEBIVOLOL 10 MG TABLET (FP) PO SCH (09:44)
[2023-02-09] MEDS: amLODIPine BESYLATE 10 MG TABLET (FP) PO SCH (09:44)
[2023-02-09 18:59] VITALS: BP 157/85; PULSE 99; TEMP 98
== END 2023-02-09 19:25 | DRG 463 ==
LOC: JER 14:59 → JERBED 18:24 → J4W 22:41 → J5S 01-22 12:12
PROVIDERS: ADMIT Internal Medicine; ATTEND Internal Medicine
DX: N39.0 Urinary tract infection, site not specified (principal); E43 Unspecified severe protein-calorie malnutrition; I63.9 Cerebral infarction, unspecified; N17.9 Acute kidney failure, unspecified; E11.22 Type 2 diabetes mellitus with diabetic chronic kidney disease; N18.4 Chronic kidney disease, stage 4 (severe); I24.8 Other forms of acute ischemic heart disease; E83.52 Hypercalcemia; G81.90 Hemiplegia, unspecified affecting unspecified side; I12.9 Hypertensive chronic kidney disease with stage 1 through stage 4 chronic kidney disease, or unspecified chronic kidney disease; B96.20 Unspecified Escherichia coli [E. coli] as the cause of diseases classified elsewhere; R29.721 NIHSS score 21; R77.8 Other specified abnormalities of plasma proteins
CPT/HCPCS: 0241U-QW; 36415; 70450-TC; 70551-TC; 71045-TC-FY; 74176-TC; 76775-TC; 80048; 80053; 80061; 81003; 82140; 82306; 82310; 82550; 82553; 82652; 82803; 82962; 83036; 83516; 83520; 83605; 83690; 83883; 83930; 83935; 83970; 84100; 84155; 84165; 84300; 84443; 84484; 85025; 85610; 85730; 86038; 86225; 86256; 87040; 87086; 87186; 87635; 93005; 93010; 93306-TC; 97116-GP; 97162-GP; 99285-25; J1644

== ENCOUNTER 2023-03-03 15:32 | Inpatient (IN) | payer OTHER ==
[2023-03-03 16:41] LABS: VENOUS BASE EXCESS -12.7 mmol/L (-2-2); VENOUS O2 SATURATION 24.5 % (70-80); VENOUS PCO2 32.8 mmHg (38-52); VENOUS PH 7.233 (7.310-7.410)
[2023-03-03 16:50] LABS: BASO % 0.2 % (0-2.0); EOS % 1.1 % (0-4.5); HEMATOCRIT 30.8 % (32.4-45.2); HEMOGLOBIN 10.1 GM/dL (10.7-15.3); LYMPH % 3.1 % (8-40); MCH 26.6 pg (25.7-33.7); MCHC 32.7 g/dl (32.0-36.0); MEAN CELL VOLUME 81.4 fl (80-96); MEAN PLT VOLUME 7.3 fl (7.5-11.1); MONO % 1.7 % (3.8-10.2); NEUT % 93.9 % (42.8-82.8); PLATELET COUNT 434 10^3/uL (134-434); RBC 3.78 M/mm3 (3.60-5.2); RDW 14.9 % (11.6-15.6); WHITE BLOOD COUNT 5.8 K/mm3 (4.0-10.0)
[2023-03-03] MEDS ORDERED: ACETAMINOPHEN 1000 MG/100 ML BAG IVPB ONE (16:54)
[2023-03-03 16:55] LABS: EPI CELLS 21 /uL (0-25.1); HYALINE CASTS 1 /uL (0-3.1); PH,URINE 5.5 (5.0-8.0); URINE APPEARANCE TURBID; URINE BACTERIA 8354 /uL (0-1359); URINE BILIRUBIN NEGATIVE (NEGATIVE); URINE COLOR YELLOW; URINE GLUCOSE (UA) NEGATIVE (NEGATIVE); URINE KETONE NEGATIVE (NEGATIVE); URINE LEUK ESTERASE 3+ (NEGATIVE); URINE NITRITE NEGATIVE (NEGATIVE); URINE PROTEIN 2+ (NEGATIVE); URINE WBC 11402 /uL (0-25.8)
[2023-03-03 16:59] LABS: INR 1.13 (0.83-1.09); PROTHROMBIN TIME (PATIENT) 13.1 SEC (9.7-13.0)
[2023-03-03 17:05] LABS: CHLORIDE 114 mmol/L (98-107); POTASSIUM 3.7 mmol/L (3.5-5.1); SODIUM 140 mmol/L (136-145)
[2023-03-03] MEDS ORDERED: CEFTRIAXONE 1,000 MG in DEXTROSE 5%-WATER - 50 ML IVPB ONE (17:05)
[2023-03-03 17:07] LABS: BLOOD UREA NITROGEN 37.2 mg/dL (7-18); CALCIUM 11.1 mg/dL (8.5-10.1)
[2023-03-03 17:08] LABS: ALBUMIN 2.2 g/dl (3.4-5.0); ANION GAP 11 MMOL/L (8-16); CO2 15 mmol/L (21-32); GLUCOSE,RANDOM 100 mg/dL (74-106); MAGNESIUM 1.5 mg/dL (1.8-2.4)
[2023-03-03 17:11] LABS: CREATININE 2.6 mg/dL (0.55-1.3); PHOSPHOROUS 2.7 mg/dL (2.5-4.9); SGOT/AST 20 U/L (15-37); SGPT/ALT 19 U/L (13-61)
[2023-03-03 17:12] LABS: BILIRUBIN,TOTAL 1.1 mg/dL (0.2-1); TOT PROT 7.1 g/dl (6.4-8.2)
[2023-03-03 17:13] LABS: ALK PHOS 181 U/L (45-117)
[2023-03-03] MEDS ORDERED: ACETAMINOPHEN INJECTION 100 ML IVPB ONE (17:17)
[2023-03-03] MEDS ORDERED: CEFTRIAXONE 1 GM/50 ML BAG ONE (17:17)
[2023-03-03 17:19] LABS: URINE RBC 112.3 /uL (0-23.9)
[2023-03-03] MEDS ORDERED: MAGNESIUM SULF 50% (8.12 MEQ/2 ML-1 GM VIAL) IVPB ONE (17:25)
[2023-03-03] MEDS ORDERED: VANCOMYCIN 1 GM in D5W (PRE-DOCKED) 1,000 MG/250 ML (RESTRICTED TO ID ONLY IVPB ONE (17:27)
[2023-03-03] MEDS ORDERED: PIPERACILLIN/TAZOB 3.375 GM 3.375 GM in DEXTROSE 5%-WATER - 50 ML IVPB ONE (17:27)
[2023-03-03 17:46] LABS: ANISOCYTOSIS 0; MACROCYTOSIS 0; TEAR DROP CELLS 1+
[2023-03-03] MEDS ORDERED: VANCOMYCIN/WATER FOR INJ (PEG) 1,000 MG/200 ML BAG IVPB ONE (17:51)
[2023-03-03] MEDS ORDERED: PIPERACILLIN/TAZOB 3.375 GM 3.375 GM/50 ML BAG IVPB ONE (17:51)
[2023-03-03] MEDS ORDERED: MAGNESIUM 1GM/D5W - 1 GM/100 ML IVPB IVPB ONE (17:53)
[2023-03-03] MEDS ORDERED: SODIUM CHLORIDE 1,000 ML IV SCH (23:00)
[2023-03-03] MEDS: INSULIN SLIDING SCALE (NOVOLOG) 1 VIAL SQ SCH (23:50)
[2023-03-04] MEDS ORDERED: BISACODYL 5 MG TABLET.DR (FP) PO PRN (00:14)
[2023-03-04] MEDS ORDERED: MAGNESIUM HYDROX 2400MG/30ML ORAL SUSPENSION 30 ML CUP PO PRN (00:20)
[2023-03-04] MEDS ORDERED: PIPERACILLIN/TAZOB 2.25 GM 2.25 GM in DEXTROSE 5%-WATER - 50 ML IVPB SCH (02:00)
[2023-03-04] MEDS: CARVEDILOL 25 MG TABLET (FP) PO SCH ×3 (02:46→21:21)
[2023-03-04] MEDS: PIPERACILLIN/TAZOB 2.25 GM 2.25 GM in DEXTROSE 5%-WATER - 50 ML IVPB SCH ×4 (02:46→21:20)
[2023-03-04] MEDS: INSULIN SLIDING SCALE (NOVOLOG) 1 VIAL SQ SCH ×4 (06:29→21:29)
[2023-03-04 07:18] VITALS: BMI 25.7
[2023-03-04 08:12] LABS: HEMATOCRIT 25.5 % (32.4-45.2); HEMOGLOBIN 8.2 GM/dL (10.7-15.3); MCH 26.5 pg (25.7-33.7); MCHC 32.2 g/dl (32.0-36.0); MEAN CELL VOLUME 82.1 fl (80-96); MEAN PLT VOLUME 7.3 fl (7.5-11.1); PLATELET COUNT 363 10^3/uL (134-434); RDW 14.6 % (11.6-15.6); WHITE BLOOD COUNT 14.5 K/mm3 (4.0-10.0)
[2023-03-04 08:32] LABS: POTASSIUM 3.5 mmol/L (3.5-5.1)
[2023-03-04 08:36] LABS: BLOOD UREA NITROGEN 38.7 mg/dL (7-18); MAGNESIUM 1.9 mg/dL (1.8-2.4)
[2023-03-04 08:40] LABS: CREATININE 2.8 mg/dL (0.55-1.3)
[2023-03-04] MEDS: MEGESTROL ACETATE 400 MG/10 ML UNIT DOSE CUP PO SCH (09:58)
[2023-03-04] MEDS: CHOLECALCIFEROL (VIT D3) 1,000 UNIT (25 MCG) TABLET PO SCH (09:58)
[2023-03-04] MEDS: amLODIPine BESYLATE 10 MG TABLET (FP) PO SCH (09:59)
[2023-03-04] MEDS: FERROUS SO4 325 MG TABLET (FP) PO SCH (09:59)
[2023-03-04] MEDS: HEPARIN NA (PORCINE) 5,000 UNITS/ML 1ML VIAL SQ SCH ×2 (10:03→21:21)
[2023-03-04 10:06] LABS: ANISOCYTOSIS 0; HELMET CELLS 0; HOWELL-JOLLY BODIES 0; MACROCYTOSIS 0; OVALOCYTE 0; ROULEAU 0; SICKELED CELLS 0; TARGET CELLS 0; TEAR DROP CELLS 0; TOXIC GRANULATION 0
[2023-03-04] MEDS: SILVER SULFADIAZINE 1% TOP CREAM 50 GM JAR TP SCH (13:00)
[2023-03-04] MEDS ORDERED: ACETAMINOPHEN 1000 MG/100 ML BAG IVPB PRN (17:39)
[2023-03-04] MEDS ORDERED: VANCOMYCIN 1 GM in D5W (PRE-DOCKED) 1,000 MG/250 ML (RESTRICTED TO ID ONLY IVPB SCH (18:00)
[2023-03-04] MEDS ORDERED: VANCOMYCIN 1 GM/200 ML PREMIX BAG (RESTRICTED TO ID ONLY) IVPB SCH (18:15)
[2023-03-04] MEDS ORDERED: DEXTROSE 50%-WATER - 25 GM/50 ML VIAL IVPUSH ONE (18:34)
[2023-03-04] MEDS: DEXTROSE 5%-WATER - 1,000 ML IV SCH ×2 (18:51→21:40)
[2023-03-04] MEDS ORDERED: INSULIN (NOVOLOG) ASPART 100 UNITS/ML 10ML VIAL ONE (21:29)
[2023-03-05] MEDS ORDERED: PIPERACILLIN/TAZOB 2.25 GM 2.25 GM in DEXTROSE 5%-WATER - 50 ML IVPB SCH (06:00)
[2023-03-05] MEDS: INSULIN SLIDING SCALE (NOVOLOG) 1 VIAL SQ SCH ×4 (07:27→22:30)
[2023-03-05] MEDS ORDERED: INSULIN (NOVOLOG) ASPART 100 UNITS/ML 10ML VIAL ONE (08:13)
[2023-03-05 08:39] LABS: HEMATOCRIT 24.3 % (32.4-45.2); MCH 26.9 pg (25.7-33.7); MCHC 33.1 g/dl (32.0-36.0); MEAN CELL VOLUME 81.3 fl (80-96); PLATELET COUNT 281 10^3/uL (134-434); RBC 2.99 M/mm3 (3.60-5.2); RDW 14.7 % (11.6-15.6); WHITE BLOOD COUNT 7.4 K/mm3 (4.0-10.0)
[2023-03-05 09:04] LABS: POTASSIUM 3.3 mmol/L (3.5-5.1)
[2023-03-05 09:08] LABS: ALBUMIN 1.8 g/dl (3.4-5.0); CALCIUM 10.3 mg/dL (8.5-10.1)
[2023-03-05 09:09] LABS: BLOOD UREA NITROGEN 38.7 mg/dL (7-18)
[2023-03-05 09:12] LABS: CREATININE 2.9 mg/dL (0.55-1.3)
[2023-03-05 09:14] LABS: BILIRUBIN,TOTAL 1.3 mg/dL (0.2-1); TOT PROT 6.2 g/dl (6.4-8.2)
[2023-03-05 09:45] LABS: ANISOCYTOSIS 2+; MACROCYTOSIS 0
[2023-03-05] MEDS ORDERED: KCL 10 MEQ IVPB 10 MEQ/100 ML INFUS.BAG IVPB SCH (10:15)
[2023-03-05] MEDS: MEGESTROL ACETATE 400 MG/10 ML UNIT DOSE CUP PO SCH (10:49)
[2023-03-05] MEDS: HEPARIN NA (PORCINE) 5,000 UNITS/ML 1ML VIAL SQ SCH ×2 (10:49→23:09)
[2023-03-05] MEDS: CHOLECALCIFEROL (VIT D3) 1,000 UNIT (25 MCG) TABLET PO SCH (10:49)
[2023-03-05] MEDS: amLODIPine BESYLATE 10 MG TABLET (FP) PO SCH (10:50)
[2023-03-05] MEDS: CARVEDILOL 25 MG TABLET (FP) PO SCH ×2 (10:50→23:15)
[2023-03-05] MEDS: DEXTROSE 5%-0.45% SALINE 1,000 ML IV SCH (10:51)
[2023-03-05] MEDS: SILVER SULFADIAZINE 1% TOP CREAM 50 GM JAR TP SCH (12:51)
[2023-03-05] MEDS: MEROPENEM 500 MG in DEXTROSE 5%-WATER 100 ML IVPB SCH ×2 (12:51→23:18)
[2023-03-05] MEDS ORDERED: METOPROLOL TARTRATE 5 MG/5 ML VIAL IVPB ONE ×2 (18:06)
[2023-03-05] MEDS: METOPROLOL TARTRATE 5 MG/5 ML VIAL IVPUSH SCH (23:07)
[2023-03-05] MEDS: SODIUM CHLORIDE 0.9%/KCL 20 MEQ/1,000 ML INFUS.BAG IV SCH (23:08)
[2023-03-05] MEDS: AMINO ACIDS/PROTEIN HYDROLYS 30 ML LIQUID.PKT PO SCH (23:15)
[2023-03-05] MEDS: VITAMIN B COMP W-C 1 EA TABLET (NEPHRO-VITE) PO SCH (23:16)
[2023-03-06] MEDS: METOPROLOL TARTRATE 5 MG/5 ML VIAL IVPUSH SCH ×6 (03:22→21:42)
[2023-03-06] MEDS: INSULIN SLIDING SCALE (NOVOLOG) 1 VIAL SQ SCH ×4 (08:05→21:50)
[2023-03-06 09:24] LABS: BASO % 0.5 % (0-2.0); EOS % 1.1 % (0-4.5); HEMOGLOBIN 8.4 GM/dL (10.7-15.3); LYMPH % 2.2 % (8-40); MCH 27.3 pg (25.7-33.7); MCHC 33.5 g/dl (32.0-36.0); MEAN CELL VOLUME 81.5 fl (80-96); MEAN PLT VOLUME 7.7 fl (7.5-11.1); NEUT % 88.2 % (42.8-82.8); PLATELET COUNT 289 10^3/uL (134-434); RBC 3.07 M/mm3 (3.60-5.2); RDW 14.7 % (11.6-15.6); WHITE BLOOD COUNT 7.3 K/mm3 (4.0-10.0)
[2023-03-06 09:46] LABS: POTASSIUM 3.6 mmol/L (3.5-5.1)
[2023-03-06] MEDS: SILVER SULFADIAZINE 1% TOP CREAM 50 GM JAR TP SCH (10:00)
[2023-03-06 10:01] LABS: CALCIUM 10.3 mg/dL (8.5-10.1)
[2023-03-06 10:02] LABS: BLOOD UREA NITROGEN 35.5 mg/dL (7-18)
[2023-03-06 10:05] LABS: CREATININE 2.7 mg/dL (0.55-1.3)
[2023-03-06] MEDS: HEPARIN NA (PORCINE) 5,000 UNITS/ML 1ML VIAL SQ SCH ×2 (11:42→21:41)
[2023-03-06] MEDS: MEROPENEM 500 MG in DEXTROSE 5%-WATER 100 ML IVPB SCH ×2 (11:42→22:18)
[2023-03-06] MEDS: DEXTROSE 5%-0.45% SALINE 1,000 ML IV SCH (13:08)
[2023-03-06] MEDS: FERROUS SO4 325 MG TABLET (FP) PO SCH (14:16)
[2023-03-06] MEDS: CARVEDILOL 25 MG TABLET (FP) PO SCH ×2 (14:16→21:41)
[2023-03-06] MEDS: AMINO ACIDS/PROTEIN HYDROLYS 30 ML LIQUID.PKT PO SCH ×2 (14:16→17:30)
[2023-03-06] MEDS: VITAMIN B COMP W-C 1 EA TABLET (NEPHRO-VITE) PO SCH (14:17)
[2023-03-06] MEDS: amLODIPine BESYLATE 10 MG TABLET (FP) PO SCH (14:17)
[2023-03-06] MEDS: MEGESTROL ACETATE 400 MG/10 ML UNIT DOSE CUP PO SCH (14:17)
[2023-03-06] MEDS: CHOLECALCIFEROL (VIT D3) 1,000 UNIT (25 MCG) TABLET PO SCH (14:18)
[2023-03-06] MEDS: SODIUM BICARBONATE 650 MG TABLET PO SCH ×2 (15:00→21:51)
[2023-03-06] MEDS ORDERED: AMINO ACIDS/PROTEIN HYDROLYS 30 ML LIQUID.PKT PO SCH (21:00)
[2023-03-06] MEDS: SODIUM CHLORIDE 0.9%/KCL 20 MEQ/1,000 ML INFUS.BAG IV SCH (21:40)
[2023-03-07] MEDS: METOPROLOL TARTRATE 5 MG/5 ML VIAL IVPUSH SCH ×6 (01:51→21:30)
[2023-03-07] MEDS ORDERED: hydrALAZINE HCL 20 MG/ML VIAL IVPUSH ONE (04:33)
[2023-03-07] MEDS: SODIUM BICARBONATE 650 MG TABLET PO SCH ×3 (05:18→21:22)
[2023-03-07] MEDS: INSULIN SLIDING SCALE (NOVOLOG) 1 VIAL SQ SCH ×4 (06:40→21:38)
[2023-03-07] MEDS ORDERED: cloNIDine-TTS 0.2 MG/24 HOURS PATCH.TDWK TD SCH (10:00)
[2023-03-07] MEDS: HEPARIN NA (PORCINE) 5,000 UNITS/ML 1ML VIAL SQ SCH ×2 (10:37→21:23)
[2023-03-07] MEDS: MEROPENEM 500 MG in DEXTROSE 5%-WATER 100 ML IVPB SCH ×2 (10:37→21:21)
[2023-03-07] MEDS: CARVEDILOL 25 MG TABLET (FP) PO SCH ×2 (11:04→21:22)
[2023-03-07] MEDS: MEGESTROL ACETATE 400 MG/10 ML UNIT DOSE CUP PO SCH (11:04)
[2023-03-07] MEDS: AMINO ACIDS/PROTEIN HYDROLYS 30 ML LIQUID.PKT PO SCH ×2 (11:04→17:49)
[2023-03-07] MEDS: VITAMIN B COMP W-C 1 EA TABLET (NEPHRO-VITE) PO SCH (11:04)
[2023-03-07] MEDS: CHOLECALCIFEROL (VIT D3) 1,000 UNIT (25 MCG) TABLET PO SCH (11:05)
[2023-03-07] MEDS: amLODIPine BESYLATE 10 MG TABLET (FP) PO SCH (11:05)
[2023-03-07] MEDS: SILVER SULFADIAZINE 1% TOP CREAM 50 GM JAR TP SCH (11:07)
[2023-03-07] MEDS: DEXTROSE 5%-0.45% SALINE 1,000 ML IV SCH (11:08)
[2023-03-07] MEDS: THIAMINE HCL 200 MG/2 ML VIAL IVPB SCH (15:53)
[2023-03-08] MEDS: METOPROLOL TARTRATE 5 MG/5 ML VIAL IVPUSH SCH ×6 (02:48→21:32)
[2023-03-08] MEDS: DEXTROSE 5%-0.45% SALINE 1,000 ML IV SCH ×3 (03:29→17:14)
[2023-03-08] MEDS: SODIUM BICARBONATE 650 MG TABLET PO SCH ×3 (05:12→21:32)
[2023-03-08] MEDS: INSULIN SLIDING SCALE (NOVOLOG) 1 VIAL SQ SCH ×4 (06:21→21:52)
[2023-03-08] MEDS: CARVEDILOL 25 MG TABLET (FP) PO SCH ×2 (10:27→21:32)
[2023-03-08] MEDS: MEROPENEM 500 MG in DEXTROSE 5%-WATER 100 ML IVPB SCH ×2 (10:27→21:31)
[2023-03-08] MEDS: CHOLECALCIFEROL (VIT D3) 1,000 UNIT (25 MCG) TABLET PO SCH (10:27)
[2023-03-08] MEDS: VITAMIN B COMP W-C 1 EA TABLET (NEPHRO-VITE) PO SCH (10:27)
[2023-03-08] MEDS: SILVER SULFADIAZINE 1% TOP CREAM 50 GM JAR TP SCH (10:28)
[2023-03-08] MEDS: amLODIPine BESYLATE 10 MG TABLET (FP) PO SCH (10:28)
[2023-03-08] MEDS: THIAMINE HCL 200 MG/2 ML VIAL IVPB SCH (10:28)
[2023-03-08] MEDS: MEGESTROL ACETATE 400 MG/10 ML UNIT DOSE CUP PO SCH (10:28)
[2023-03-08] MEDS: FERROUS SO4 325 MG TABLET (FP) PO SCH (10:28)
[2023-03-08] MEDS: AMINO ACIDS/PROTEIN HYDROLYS 30 ML LIQUID.PKT PO SCH ×2 (10:29→16:53)
[2023-03-08] MEDS: HEPARIN NA (PORCINE) 5,000 UNITS/ML 1ML VIAL SQ SCH ×2 (10:29→21:31)
[2023-03-09] MEDS: METOPROLOL TARTRATE 5 MG/5 ML VIAL IVPUSH SCH ×6 (02:08→23:27)
[2023-03-09] MEDS: SODIUM BICARBONATE 650 MG TABLET PO SCH ×3 (06:34→23:28)
[2023-03-09] MEDS: SILVER SULFADIAZINE 1% TOP CREAM 50 GM JAR TP SCH (10:00)
[2023-03-09] MEDS: THIAMINE HCL 200 MG/2 ML VIAL IVPB SCH ×2 (10:48→11:04)
[2023-03-09] MEDS: AMINO ACIDS/PROTEIN HYDROLYS 30 ML LIQUID.PKT PO SCH ×2 (11:03→18:36)
[2023-03-09] MEDS: HEPARIN NA (PORCINE) 5,000 UNITS/ML 1ML VIAL SQ SCH ×2 (11:03→23:28)
[2023-03-09] MEDS: CARVEDILOL 25 MG TABLET (FP) PO SCH ×2 (11:03→23:28)
[2023-03-09] MEDS: VITAMIN B COMP W-C 1 EA TABLET (NEPHRO-VITE) PO SCH (11:04)
[2023-03-09] MEDS: CHOLECALCIFEROL (VIT D3) 1,000 UNIT (25 MCG) TABLET PO SCH (11:04)
[2023-03-09] MEDS: amLODIPine BESYLATE 10 MG TABLET (FP) PO SCH (11:04)
[2023-03-09] MEDS: MEGESTROL ACETATE 400 MG/10 ML UNIT DOSE CUP PO SCH (11:04)
[2023-03-09] MEDS: MEROPENEM 500 MG in DEXTROSE 5%-WATER 100 ML IVPB SCH ×2 (11:53→23:29)
[2023-03-09] MEDS: INSULIN SLIDING SCALE (NOVOLOG) 1 VIAL SQ SCH ×3 (11:53→23:38)
[2023-03-10] MEDS: METOPROLOL TARTRATE 5 MG/5 ML VIAL IVPUSH SCH ×6 (04:08→23:26)
[2023-03-10] MEDS: DEXTROSE 5%-0.45% SALINE 1,000 ML IV SCH ×2 (06:19→10:25)
[2023-03-10] MEDS: SODIUM BICARBONATE 650 MG TABLET PO SCH ×3 (06:20→22:59)
[2023-03-10 08:54] LABS: BASO % 0.6 % (0-2.0); EOS % 2.1 % (0-4.5); HEMATOCRIT 22.5 % (32.4-45.2); HEMOGLOBIN 7.5 GM/dL (10.7-15.3); LYMPH % 8.7 % (8-40); MCHC 33.2 g/dl (32.0-36.0); MEAN CELL VOLUME 81.1 fl (80-96); MEAN PLT VOLUME 7.1 fl (7.5-11.1); MONO % 11.5 % (3.8-10.2); NEUT % 77.1 % (42.8-82.8); PLATELET COUNT 312 10^3/uL (134-434); RBC 2.77 M/mm3 (3.60-5.2); RDW 14.6 % (11.6-15.6); WHITE BLOOD COUNT 7.3 K/mm3 (4.0-10.0)
[2023-03-10 08:58] LABS: POTASSIUM 3.5 mmol/L (3.5-5.1)
[2023-03-10 09:02] LABS: ALBUMIN 1.9 g/dl (3.4-5.0); BLOOD UREA NITROGEN 27.4 mg/dL (7-18); CALCIUM 9.9 mg/dL (8.5-10.1)
[2023-03-10 09:05] LABS: CREATININE 2.3 mg/dL (0.55-1.3)
[2023-03-10 09:07] LABS: BILIRUBIN,TOTAL 0.6 mg/dL (0.2-1); TOT PROT 5.9 g/dl (6.4-8.2)
[2023-03-10] MEDS: INSULIN SLIDING SCALE (NOVOLOG) 1 VIAL SQ SCH ×5 (09:35→23:27)
[2023-03-10] MEDS: AMINO ACIDS/PROTEIN HYDROLYS 30 ML LIQUID.PKT PO SCH ×2 (10:20→18:43)
[2023-03-10] MEDS: CARVEDILOL 25 MG TABLET (FP) PO SCH ×2 (10:22→22:58)
[2023-03-10] MEDS: FERROUS SO4 325 MG TABLET (FP) PO SCH (10:22)
[2023-03-10] MEDS: HEPARIN NA (PORCINE) 5,000 UNITS/ML 1ML VIAL SQ SCH ×2 (10:23→22:58)
[2023-03-10] MEDS: MEROPENEM 500 MG in DEXTROSE 5%-WATER 100 ML IVPB SCH ×2 (10:23→22:59)
[2023-03-10] MEDS: THIAMINE HCL 200 MG/2 ML VIAL IVPB SCH (10:24)
[2023-03-10] MEDS: SILVER SULFADIAZINE 1% TOP CREAM 50 GM JAR TP SCH (10:26)
[2023-03-10] MEDS: amLODIPine BESYLATE 10 MG TABLET (FP) PO SCH (10:27)
[2023-03-10] MEDS: MEGESTROL ACETATE 400 MG/10 ML UNIT DOSE CUP PO SCH (10:27)
[2023-03-10] MEDS: VITAMIN B COMP W-C 1 EA TABLET (NEPHRO-VITE) PO SCH (10:27)
[2023-03-10] MEDS: CHOLECALCIFEROL (VIT D3) 1,000 UNIT (25 MCG) TABLET PO SCH (10:28)
[2023-03-10] MEDS: AMINO ACIDS 4.25%/D5W 1,000 ML IV SCH (13:13)
[2023-03-10] MEDS ORDERED: POTASSIUM CHLORIDE ORAL LIQUID 20 MEQ/15 ML PO ONE (16:00)
[2023-03-10] MEDS ORDERED: FAT EMULSION/OLIVE/SOY (CLINOLIPID) 250 ML EMULSION IV SCH (22:00)
[2023-03-10] MEDS: FAT EMULSION/OLIVE/SOY/PHOSPHO 250 ML IV SCH (22:58)
[2023-03-11] MEDS: FAT EMULSION/OLIVE/SOY/PHOSPHO 250 ML IV SCH ×2 (01:11→22:50)
[2023-03-11] MEDS: METOPROLOL TARTRATE 5 MG/5 ML VIAL IVPUSH SCH ×6 (03:00→22:51)
[2023-03-11] MEDS: SODIUM BICARBONATE 650 MG TABLET PO SCH ×3 (06:01→22:52)
[2023-03-11] MEDS: INSULIN SLIDING SCALE (NOVOLOG) 1 VIAL SQ SCH ×4 (06:34→22:54)
[2023-03-11] MEDS: AMINO ACIDS/PROTEIN HYDROLYS 30 ML LIQUID.PKT PO SCH ×2 (08:35→17:29)
[2023-03-11] MEDS: MEROPENEM 500 MG in DEXTROSE 5%-WATER 100 ML IVPB SCH ×2 (10:24→22:50)
[2023-03-11] MEDS: CARVEDILOL 25 MG TABLET (FP) PO SCH ×2 (10:32→22:51)
[2023-03-11] MEDS: CHOLECALCIFEROL (VIT D3) 1,000 UNIT (25 MCG) TABLET PO SCH (10:33)
[2023-03-11] MEDS: VITAMIN B COMP W-C 1 EA TABLET (NEPHRO-VITE) PO SCH (10:33)
[2023-03-11] MEDS: MEGESTROL ACETATE 400 MG/10 ML UNIT DOSE CUP PO SCH (10:33)
[2023-03-11] MEDS: amLODIPine BESYLATE 10 MG TABLET (FP) PO SCH (10:33)
[2023-03-11] MEDS: DEXTROSE 5%-0.45% SALINE 1,000 ML IV SCH (10:33)
[2023-03-11] MEDS: SILVER SULFADIAZINE 1% TOP CREAM 50 GM JAR TP SCH (10:34)
[2023-03-11] MEDS: THIAMINE HCL 200 MG/2 ML VIAL IVPB SCH (10:38)
[2023-03-11] MEDS: AMINO ACIDS 4.25%/D5W 1,000 ML IV SCH ×2 (11:22→22:49)
[2023-03-11 11:36] LABS: BASO % 0.6 % (0-2.0); EOS % 1.7 % (0-4.5); HEMATOCRIT 23.5 % (32.4-45.2); HEMOGLOBIN 7.9 GM/dL (10.7-15.3); LYMPH % 6.7 % (8-40); MCH 27.2 pg (25.7-33.7); MCHC 33.6 g/dl (32.0-36.0); MEAN PLT VOLUME 7.7 fl (7.5-11.1); MONO % 6.4 % (3.8-10.2); NEUT % 84.6 % (42.8-82.8); PLATELET COUNT 426 10^3/uL (134-434); RBC 2.91 M/mm3 (3.60-5.2); RDW 14.6 % (11.6-15.6); WHITE BLOOD COUNT 9.1 K/mm3 (4.0-10.0)
[2023-03-11 11:49] LABS: POTASSIUM 3.2 mmol/L (3.5-5.1)
[2023-03-11 11:50] LABS: CALCIUM 10.1 mg/dL (8.5-10.1)
[2023-03-11 11:51] LABS: BLOOD UREA NITROGEN 29.5 mg/dL (7-18)
[2023-03-11 11:54] LABS: CREATININE 2.1 mg/dL (0.55-1.3)
[2023-03-11 11:56] LABS: BILIRUBIN,TOTAL 0.6 mg/dL (0.2-1); TOT PROT 6.3 g/dl (6.4-8.2)
[2023-03-11] MEDS ORDERED: hydrALAZINE HCL 20 MG/ML VIAL IVPUSH ONE (14:30)
[2023-03-12] MEDS: METOPROLOL TARTRATE 5 MG/5 ML VIAL IVPUSH SCH ×5 (01:27→17:43)
[2023-03-12] MEDS: SODIUM BICARBONATE 650 MG TABLET PO SCH ×3 (05:54→22:57)
[2023-03-12] MEDS: INSULIN SLIDING SCALE (NOVOLOG) 1 VIAL SQ SCH ×4 (06:03→23:03)
[2023-03-12] MEDS: CARVEDILOL 25 MG TABLET (FP) PO SCH ×2 (09:34→22:56)
[2023-03-12] MEDS: amLODIPine BESYLATE 10 MG TABLET (FP) PO SCH (09:34)
[2023-03-12] MEDS: VITAMIN B COMP W-C 1 EA TABLET (NEPHRO-VITE) PO SCH (09:35)
[2023-03-12] MEDS: AMINO ACIDS/PROTEIN HYDROLYS 30 ML LIQUID.PKT PO SCH ×2 (09:35→17:19)
[2023-03-12] MEDS: MEROPENEM 500 MG in DEXTROSE 5%-WATER 100 ML IVPB SCH ×2 (09:35→23:02)
[2023-03-12] MEDS: FERROUS SO4 325 MG TABLET (FP) PO SCH (09:35)
[2023-03-12] MEDS: MEGESTROL ACETATE 400 MG/10 ML UNIT DOSE CUP PO SCH (09:35)
[2023-03-12] MEDS: CHOLECALCIFEROL (VIT D3) 1,000 UNIT (25 MCG) TABLET PO SCH (09:36)
[2023-03-12] MEDS: SILVER SULFADIAZINE 1% TOP CREAM 50 GM JAR TP SCH (09:36)
[2023-03-12] MEDS ORDERED: cloNIDine-TTS 0.1 MG/24 HRS PATCH.TDWK TD SCH (10:00)
[2023-03-12] MEDS: AMINO ACIDS 4.25%/D5W 1,000 ML IV SCH (12:41)
[2023-03-12] MEDS: METOPROLOL TARTRATE 5 MG/5 ML VIAL IVPB SCH (22:57)
[2023-03-12] MEDS: FAT EMULSION/OLIVE/SOY/PHOSPHO 250 ML IV SCH (23:01)
[2023-03-13] MEDS: METOPROLOL TARTRATE 5 MG/5 ML VIAL IVPB SCH ×6 (02:35→21:12)
[2023-03-13] MEDS: AMINO ACIDS 4.25%/D5W 1,000 ML IV SCH ×2 (04:30→10:58)
[2023-03-13] MEDS: SODIUM BICARBONATE 650 MG TABLET PO SCH ×3 (06:38→23:07)
[2023-03-13] MEDS: INSULIN SLIDING SCALE (NOVOLOG) 1 VIAL SQ SCH ×4 (06:38→23:06)
[2023-03-13] MEDS: AMINO ACIDS/PROTEIN HYDROLYS 30 ML LIQUID.PKT PO SCH ×2 (08:46→17:10)
[2023-03-13] MEDS: SILVER SULFADIAZINE 1% TOP CREAM 50 GM JAR TP SCH (10:50)
[2023-03-13] MEDS: MEROPENEM 500 MG in DEXTROSE 5%-WATER 100 ML IVPB SCH ×2 (10:55→21:11)
[2023-03-13] MEDS: VITAMIN B COMP W-C 1 EA TABLET (NEPHRO-VITE) PO SCH (11:11)
[2023-03-13] MEDS: CHOLECALCIFEROL (VIT D3) 1,000 UNIT (25 MCG) TABLET PO SCH (11:11)
[2023-03-13] MEDS: CARVEDILOL 25 MG TABLET (FP) PO SCH ×2 (11:11→23:00)
[2023-03-13] MEDS: MEGESTROL ACETATE 400 MG/10 ML UNIT DOSE CUP PO SCH (11:11)
[2023-03-13] MEDS: amLODIPine BESYLATE 10 MG TABLET (FP) PO SCH (11:11)
[2023-03-13] MEDS ORDERED: LIDOCAINE HCL 2% JELLY 6 ML TP ONE (12:00)
[2023-03-13] MEDS ORDERED: GLUCAGON 1 MG KIT ONE (15:33)
[2023-03-13] MEDS ORDERED: FENTANYL CITRATE/PF 50 MCG/ML VIAL ONE (15:33)
[2023-03-13] MEDS ORDERED: MIDAZOLAM HCL 2 MG/2 ML SINGLE DOSE VIAL ONE (15:33)
[2023-03-13] MEDS: FAT EMULSION/OLIVE/SOY/PHOSPHO 250 ML IV SCH (23:01)
[2023-03-14] MEDS: METOPROLOL TARTRATE 5 MG/5 ML VIAL IVPB SCH ×6 (02:12→22:58)
[2023-03-14] MEDS: SODIUM BICARBONATE 650 MG TABLET PO SCH ×3 (06:09→22:58)
[2023-03-14] MEDS: INSULIN SLIDING SCALE (NOVOLOG) 1 VIAL SQ SCH ×4 (06:35→22:59)
[2023-03-14] MEDS: AMINO ACIDS/PROTEIN HYDROLYS 30 ML LIQUID.PKT PO SCH ×2 (08:25→17:32)
[2023-03-14] MEDS: FERROUS SO4 325 MG TABLET (FP) PO SCH (10:00)
[2023-03-14] MEDS: CHOLECALCIFEROL (VIT D3) 1,000 UNIT (25 MCG) TABLET PO SCH (10:00)
[2023-03-14] MEDS: amLODIPine BESYLATE 10 MG TABLET (FP) PO SCH (10:00)
[2023-03-14] MEDS ORDERED: cloNIDine-TTS 0.3 MG /24 HRS PATCH.TDWK TD SCH (10:00)
[2023-03-14] MEDS: CARVEDILOL 25 MG TABLET (FP) PO SCH ×2 (10:00→22:58)
[2023-03-14] MEDS: VITAMIN B COMP W-C 1 EA TABLET (NEPHRO-VITE) PO SCH (10:00)
[2023-03-14] MEDS: MEGESTROL ACETATE 400 MG/10 ML UNIT DOSE CUP PO SCH (10:00)
[2023-03-14] MEDS ORDERED: FENTANYL CITRATE/PF 50 MCG/ML VIAL ONE ×2 (10:21→10:54)
[2023-03-14] MEDS ORDERED: MIDAZOLAM HCL 2 MG/2 ML SINGLE DOSE VIAL ONE (10:21)
[2023-03-14] MEDS ORDERED: FENTANYL CITRATE/PF 50 MCG/ML VIAL IVPUSH ONE ×2 (10:45→10:55)
[2023-03-14] MEDS ORDERED: MIDAZOLAM HCL 2 MG/2 ML SINGLE DOSE VIAL IVPUSH ONE ×2 (10:45→10:55)
[2023-03-14] MEDS ORDERED: GlUCAGON HUMAN RECOMBINANT 1 MG/VIAL IVPUSH ONE (10:50)
[2023-03-14] MEDS: MEROPENEM 500 MG in DEXTROSE 5%-WATER 100 ML IVPB SCH ×2 (13:24→22:59)
[2023-03-14] MEDS: AMINO ACIDS 4.25%/D5W 1,000 ML IV SCH (13:29)
[2023-03-14] MEDS: SILVER SULFADIAZINE 1% TOP CREAM 50 GM JAR TP SCH (13:30)
[2023-03-14] MEDS ORDERED: DEXTROSE 50%-WATER - 25 GM/50 ML VIAL IVPUSH PRN (19:04)
[2023-03-14] MEDS: FAT EMULSION/OLIVE/SOY/PHOSPHO 250 ML IV SCH (23:18)
[2023-03-15] MEDS: METOPROLOL TARTRATE 5 MG/5 ML VIAL IVPB SCH ×6 (02:21→23:09)
[2023-03-15] MEDS: SODIUM BICARBONATE 650 MG TABLET PO SCH ×4 (06:21→23:30)
[2023-03-15] MEDS: INSULIN SLIDING SCALE (NOVOLOG) 1 VIAL SQ SCH ×4 (06:21→23:38)
[2023-03-15 09:27] LABS: BASO % 0.6 % (0-2.0); EOS % 3.2 % (0-4.5); HEMATOCRIT 21.3 % (32.4-45.2); HEMOGLOBIN 7.2 GM/dL (10.7-15.3); LYMPH % 7.1 % (8-40); MCHC 33.7 g/dl (32.0-36.0); MEAN CELL VOLUME 80.2 fl (80-96); MEAN PLT VOLUME 7.2 fl (7.5-11.1); NEUT % 80.1 % (42.8-82.8); PLATELET COUNT 329 10^3/uL (134-434); RBC 2.65 M/mm3 (3.60-5.2); RDW 14.4 % (11.6-15.6)
[2023-03-15] MEDS: MEROPENEM 500 MG in DEXTROSE 5%-WATER 100 ML IVPB SCH ×2 (09:28→23:07)
[2023-03-15] MEDS: CHOLECALCIFEROL (VIT D3) 1,000 UNIT (25 MCG) TABLET PO SCH (09:29)
[2023-03-15] MEDS: MEGESTROL ACETATE 400 MG/10 ML UNIT DOSE CUP PO SCH (09:29)
[2023-03-15] MEDS: CARVEDILOL 25 MG TABLET (FP) PO SCH ×3 (09:29→23:30)
[2023-03-15] MEDS: AMINO ACIDS/PROTEIN HYDROLYS 30 ML LIQUID.PKT PO SCH ×2 (09:29→16:53)
[2023-03-15] MEDS: amLODIPine BESYLATE 10 MG TABLET (FP) PO SCH (09:30)
[2023-03-15] MEDS: VITAMIN B COMP W-C 1 EA TABLET (NEPHRO-VITE) PO SCH (09:30)
[2023-03-15] MEDS: SILVER SULFADIAZINE 1% TOP CREAM 50 GM JAR TP SCH (09:38)
[2023-03-15 10:24] LABS: CHLORIDE 119 mmol/L (98-107); SODIUM 143 mmol/L (136-145)
[2023-03-15 10:35] LABS: BILIRUBIN,TOTAL 0.4 mg/dL (0.2-1)
[2023-03-15 10:39] LABS: CALCIUM 9.8 mg/dL (8.5-10.1); GLUCOSE,RANDOM 69 mg/dL (74-106)
[2023-03-15 10:40] LABS: ALBUMIN 1.9 g/dl (3.4-5.0); BLOOD UREA NITROGEN 37.6 mg/dL (7-18); CO2 15 mmol/L (21-32); SGPT/ALT 8 U/L (13-61)
[2023-03-15 10:41] LABS: TOT PROT 5.8 g/dl (6.4-8.2)
[2023-03-15 10:42] LABS: CREATININE 1.8 mg/dL (0.55-1.3); SGOT/AST 11 U/L (15-37)
[2023-03-15 10:52] LABS: ALK PHOS 102 U/L (45-117); ANION GAP 10 MMOL/L (8-16); POTASSIUM 2.8 mmol/L (3.5-5.1)
[2023-03-15] MEDS: KCL 10 MEQ IVPB 10 MEQ/100 ML INFUS.BAG IVPB SCH ×3 (12:22→13:59)
[2023-03-15] MEDS ORDERED: POTASSIUM CHLORIDE ORAL LIQUID 20 MEQ/15 ML PO ONE (12:45)
[2023-03-15] MEDS: POTASSIUM CHLORIDE 40 MEQ in AMINO ACIDS 4.25%/D5W 1,000 ML IV SCH (15:51)
[2023-03-15] MEDS: FAT EMULSION/OLIVE/SOY/PHOSPHO 250 ML IV SCH (23:06)
[2023-03-16] MEDS: METOPROLOL TARTRATE 5 MG/5 ML VIAL IVPB SCH ×4 (03:06→18:24)
[2023-03-16] MEDS: SODIUM BICARBONATE 650 MG TABLET PO SCH ×2 (06:45→17:50)
[2023-03-16] MEDS: INSULIN SLIDING SCALE (NOVOLOG) 1 VIAL SQ SCH ×4 (06:46→21:46)
[2023-03-16 08:31] LABS: POTASSIUM 3.4 mmol/L (3.5-5.1)
[2023-03-16 08:35] LABS: CALCIUM 9.6 mg/dL (8.5-10.1)
[2023-03-16 08:36] LABS: BLOOD UREA NITROGEN 40.2 mg/dL (7-18); MAGNESIUM 1.5 mg/dL (1.8-2.4)
[2023-03-16 08:39] LABS: CREATININE 1.8 mg/dL (0.55-1.3); PHOSPHOROUS 3.3 mg/dL (2.5-4.9)
[2023-03-16 08:40] LABS: BILIRUBIN,TOTAL 0.5 mg/dL (0.2-1)
[2023-03-16 09:02] LABS: HEMATOCRIT 22.1 % (32.4-45.2); HEMOGLOBIN 7.7 GM/dL (10.7-15.3); MCH 27.9 pg (25.7-33.7); MEAN CELL VOLUME 79.8 fl (80-96); RBC 2.76 M/mm3 (3.60-5.2); RDW 14.9 % (11.6-15.6)
[2023-03-16 09:04] LABS: MEAN PLT VOLUME 8.6 fl (7.5-11.1); PLATELET COUNT 234 10^3/uL (134-434)
[2023-03-16] MEDS: POTASSIUM CHLORIDE 40 MEQ in AMINO ACIDS 4.25%/D5W 1,000 ML IV SCH (10:58)
[2023-03-16] MEDS: CARVEDILOL 25 MG TABLET (FP) PO SCH (12:41)
[2023-03-16] MEDS: AMINO ACIDS/PROTEIN HYDROLYS 30 ML LIQUID.PKT PO SCH (12:41)
[2023-03-16] MEDS: FERROUS SO4 325 MG TABLET (FP) PO SCH (12:42)
[2023-03-16] MEDS: MEGESTROL ACETATE 400 MG/10 ML UNIT DOSE CUP PO SCH (12:42)
[2023-03-16] MEDS: SILVER SULFADIAZINE 1% TOP CREAM 50 GM JAR TP SCH (12:42)
[2023-03-16] MEDS: amLODIPine BESYLATE 10 MG TABLET (FP) PO SCH (12:42)
[2023-03-16] MEDS: VITAMIN B COMP W-C 1 EA TABLET (NEPHRO-VITE) PO SCH (12:42)
[2023-03-16] MEDS: CHOLECALCIFEROL (VIT D3) 1,000 UNIT (25 MCG) TABLET PO SCH (12:42)
[2023-03-16] MEDS: MEROPENEM 500 MG in DEXTROSE 5%-WATER 100 ML IVPB SCH (13:46)
[2023-03-16] MEDS ORDERED: POTASSIUM CHLORIDE ORAL LIQUID 20 MEQ/15 ML PO ONE (16:27)
[2023-03-16] MEDS ORDERED: MAGNESIUM HYDROX 2400MG/30ML ORAL SUSPENSION 30 ML CUP GT PRN (17:59)
[2023-03-16] MEDS ORDERED: amLODIPine BESYLATE 10 MG TABLET (FP) GT SCH (17:59)
[2023-03-16] MEDS ORDERED: CHOLECALCIFEROL (VIT D3) 1,000 UNIT (25 MCG) TABLET GT SCH (17:59)
[2023-03-16] MEDS ORDERED: VITAMIN B COMP W-C 1 EA TABLET (NEPHRO-VITE) GT SCH (17:59)
[2023-03-16] MEDS ORDERED: BISACODYL 5 MG TABLET.DR (FP) NR PRN (17:59)
[2023-03-16] MEDS ORDERED: IRON SUCROSE INJECTION 200 MG in SODIUM CHLORIDE 90 ML IVPB ONE (19:00)
[2023-03-16] MEDS: FERROUS SO4 300 MG/5 ML ORAL SOLN UNIT DOSE CUPS GT SCH (19:15)
[2023-03-16] MEDS: OLANZapine 5 MG TABLET GT SCH (21:47)
[2023-03-16] MEDS: SODIUM BICARBONATE 650 MG TABLET GT SCH (21:47)
[2023-03-16] MEDS: CARVEDILOL 25 MG TABLET (FP) GT SCH (21:48)
[2023-03-17] MEDS: SODIUM BICARBONATE 650 MG TABLET GT SCH ×3 (05:44→21:48)
[2023-03-17] MEDS: INSULIN SLIDING SCALE (NOVOLOG) 1 VIAL SQ SCH ×4 (06:08→21:47)
[2023-03-17 09:47] LABS: POTASSIUM 3.5 mmol/L (3.5-5.1)
[2023-03-17 10:02] LABS: BLOOD UREA NITROGEN 39.5 mg/dL (7-18)
[2023-03-17 10:04] LABS: CREATININE 1.8 mg/dL (0.55-1.3)
[2023-03-17 10:07] LABS: BILIRUBIN,TOTAL 0.4 mg/dL (0.2-1); CALCIUM 9.9 mg/dL (8.5-10.1)
[2023-03-17 10:51] VITALS: RESP 18
[2023-03-17] MEDS: CARVEDILOL 25 MG TABLET (FP) GT SCH ×2 (11:00→21:50)
[2023-03-17] MEDS: AMINO ACIDS/PROTEIN HYDROLYS 30 ML LIQUID.PKT PO SCH (11:01)
[2023-03-17] MEDS: FERROUS SO4 300 MG/5 ML ORAL SOLN UNIT DOSE CUPS GT SCH (11:01)
[2023-03-17] MEDS: SILVER SULFADIAZINE 1% TOP CREAM 50 GM JAR TP SCH (14:00)
[2023-03-17] MEDS: OLANZapine 5 MG TABLET GT SCH (21:48)
[2023-03-18 04:11] VITALS: BP 142/68; PULSE 86; TEMP 98.1
[2023-03-18] MEDS ORDERED: AMINO ACIDS/PROTEIN HYDROLYS 30 ML LIQUID.PKT PO SCH (08:00)
[2023-03-21] MEDS ORDERED: cloNIDine-TTS 0.2 MG/24 HOURS PATCH.TDWK TD SCH (10:00)
== END 2023-03-18 03:41 | DRG 720 ==
LOC: JER 15:32 → JERBED 17:55 → J7W 03-04 01:33
PROVIDERS: ADMIT Internal Medicine; ATTEND Internal Medicine
PROC: 0DH63UZ Insertion of Feeding Device into Stomach, Percutaneous Approach (ICD-10-PCS; principal; 2023-03-14)
PROC: BD12YZZ Fluoroscopy of Stomach using Other Contrast (ICD-10-PCS; 2023-03-14)
DX: A41.50 Gram-negative sepsis, unspecified (principal); L89.152 Pressure ulcer of sacral region, stage 2; R53.2 Functional quadriplegia; E43 Unspecified severe protein-calorie malnutrition; E11.22 Type 2 diabetes mellitus with diabetic chronic kidney disease; J18.9 Pneumonia, unspecified organism; R64 Cachexia; E83.42 Hypomagnesemia; E87.6 Hypokalemia; F32.A Depression, unspecified; I12.9 Hypertensive chronic kidney disease with stage 1 through stage 4 chronic kidney disease, or unspecified chronic kidney disease; N39.0 Urinary tract infection, site not specified; R62.7 Adult failure to thrive; N18.9 Chronic kidney disease, unspecified; I69.359 Hemiplegia and hemiparesis following cerebral infarction affecting unspecified side; E83.52 Hypercalcemia; G92.8 Other toxic encephalopathy
CPT/HCPCS: 0241U-QW; 36415; 49440; 70450-TC; 71045-TC-FY; 74018-TC-FY; 74176-TC; 80048; 80053; 81003; 82550; 82553; 82607; 82803; 82962; 83605; 83735; 83880; 84100; 84484; 85025; 85027; 85610; 85730; 86850; 86900; 86901; 87040; 87086; 87186; 93005; 93010; 99285-25; E0186; J1644; J1756

== ENCOUNTER 2023-04-07 19:39 | Inpatient (IN) | payer OTHER ==
[2023-04-07] MEDS ORDERED: CEFEPIME HCL 2 GM VIAL (RESTRICTED TO ID) IVPB ONE (19:56)
[2023-04-07] MEDS ORDERED: SODIUM CHLORIDE 1,000 ML IV STA (20:01)
[2023-04-07] MEDS ORDERED: FENTANYL CITRATE/PF 50 MCG/ML VIAL ONE (20:08)
[2023-04-07] MEDS ORDERED: ACETAMINOPHEN 1000 MG/100 ML BAG IVPB ONE (20:13)
[2023-04-07] MEDS ORDERED: HALOPERIDOL DECANOATE 100 MG/ML IM ONE (20:26)
[2023-04-07] MEDS ORDERED: ACETAMINOPHEN INJECTION 100 ML IVPB ONE (20:30)
[2023-04-07 20:42] LABS: BASO % 0.8 % (0-2.0); EOS % 3.2 % (0-4.5); HEMATOCRIT 30.8 % (32.4-45.2); LYMPH % 9.5 % (8-40); MCH 27.1 pg (25.7-33.7); MCHC 32.5 g/dl (32.0-36.0); MEAN CELL VOLUME 83.2 fl (80-96); MEAN PLT VOLUME 7.1 fl (7.5-11.1); NEUT % 75.5 % (42.8-82.8); PLATELET COUNT 655 10^3/uL (134-434); RDW 17.7 % (11.6-15.6); WHITE BLOOD COUNT 10.1 K/mm3 (4.0-10.0)
[2023-04-07] MEDS ORDERED: FAMOTIDINE 20 MG/50 ML IVPB 20 MG/50 ML MG IVPB ONE ×2 (20:43→21:22)
[2023-04-07 20:45] LABS: VENOUS BASE EXCESS 1.7 mmol/L (-2-2); VENOUS O2 SATURATION 69.4 % (70-80); VENOUS PCO2 24.2 mmHg (38-52); VENOUS PH 7.585 (7.310-7.410)
[2023-04-07 20:48] LABS: INR 1.05 (0.83-1.09); PROTHROMBIN TIME (PATIENT) 12.2 SEC (9.7-13.0)
[2023-04-07 20:51] LABS: ACTIVATED PTT 32.2 SECONDS (25.2-36.5)
[2023-04-07 21:06] LABS: CHLORIDE 105 mmol/L (98-107); POTASSIUM 5.3 mmol/L (3.5-5.1); SODIUM 141 mmol/L (136-145)
[2023-04-07 21:08] LABS: ALBUMIN 2.5 g/dl (3.4-5.0); ANION GAP 11 MMOL/L (8-16); BLOOD UREA NITROGEN 77.8 mg/dL (7-18); CALCIUM 10.3 mg/dL (8.5-10.1); CO2 24 mmol/L (21-32); GLUCOSE,RANDOM 105 mg/dL (74-106)
[2023-04-07 21:11] LABS: CREATININE 4.3 mg/dL (0.55-1.3); SGPT/ALT 11 U/L (13-61)
[2023-04-07 21:12] LABS: SGOT/AST 11 U/L (15-37)
[2023-04-07 21:13] LABS: BILIRUBIN,TOTAL 0.4 mg/dL (0.2-1); TOT PROT 7.6 g/dl (6.4-8.2)
[2023-04-07 21:14] LABS: ALK PHOS 129 U/L (45-117)
[2023-04-07 21:17] LABS: LACTIC ACID 2.1 mmol/L (0.4-2.0)
[2023-04-07] MEDS ORDERED: HALOPERIDOL LACTATE 5 MG/ML IM ONE (21:22)
[2023-04-07 21:45] LABS: EPI CELLS 10 /uL (0-25.1); HYALINE CASTS 1 /uL (0-3.1); PH,URINE >= 9.0 (5.0-8.0); URINE APPEARANCE CLOUDY; URINE BACTERIA 271 /uL (0-1359); URINE BILIRUBIN NEGATIVE (NEGATIVE); URINE COLOR YELLOW; URINE GLUCOSE (UA) NEGATIVE (NEGATIVE); URINE KETONE NEGATIVE (NEGATIVE); URINE LEUK ESTERASE 3+ (NEGATIVE); URINE NITRITE NEGATIVE (NEGATIVE); URINE PROTEIN 2+ (NEGATIVE); URINE RBC 155 /uL (0-23.9); URINE UROBILINOGEN 0.2 mg/dL (0.2-1.0); URINE WBC 1762 /uL (0-25.8)
[2023-04-07] MEDS ORDERED: CEFEPIME 2 GM/100 ML BAG IVPB ONE (22:46)
[2023-04-07 22:49] LABS: YEAST NONE SEEN (NEGATIVE)
[2023-04-08] MEDS: SODIUM CHLORIDE 1,000 ML IV SCH ×2 (04:32→18:07)
[2023-04-08] MEDS ORDERED: FUROSEMIDE 40 MG/4 ML INJECTABLE VIAL IVPB ONE (05:00)
[2023-04-08] MEDS: cloNIDine HCL 0.1 MG TABLET PEG SCH ×4 (06:40→21:22)
[2023-04-08 08:33] LABS: HEMATOCRIT 32.7 % (32.4-45.2); HEMOGLOBIN 10.5 GM/dL (10.7-15.3); MCH 27.9 pg (25.7-33.7); MCHC 32.1 g/dl (32.0-36.0); MEAN CELL VOLUME 86.9 fl (80-96); MEAN PLT VOLUME 7.6 fl (7.5-11.1); PLATELET COUNT 541 10^3/uL (134-434); RBC 3.76 M/mm3 (3.60-5.2); RDW 18.2 % (11.6-15.6); WHITE BLOOD COUNT 8.6 K/mm3 (4.0-10.0)
[2023-04-08 08:45] LABS: POTASSIUM 5.2 mmol/L (3.5-5.1)
[2023-04-08 08:47] LABS: ALBUMIN 2.6 g/dl (3.4-5.0); BLOOD UREA NITROGEN 75.4 mg/dL (7-18); CALCIUM 10.1 mg/dL (8.5-10.1); MAGNESIUM 2.9 mg/dL (1.8-2.4)
[2023-04-08 08:50] LABS: CREATININE 4.1 mg/dL (0.55-1.3); PHOSPHOROUS 4.6 mg/dL (2.5-4.9)
[2023-04-08 08:52] LABS: BILIRUBIN,TOTAL 0.4 mg/dL (0.2-1); TOT PROT 7.6 g/dl (6.4-8.2)
[2023-04-08] MEDS ORDERED: MEROPENEM 500 MG in DEXTROSE 5%-WATER - 50 ML IVPB SCH (10:00)
[2023-04-08] MEDS ORDERED: PANTOPRAZOLE SODIUM 40 MG VIAL IV SCH (10:00)
[2023-04-08] MEDS ORDERED: PATIENT'S OWN MEDICATION (NON-FORMULARY) (Ferrous Sulfate [Ferrous Sulfate] 325 MG Tablet) PEG SCH (10:00)
[2023-04-08] MEDS ORDERED: PANTOPRAZOLE SODIUM 40 MG VIAL IVPUSH SCH (10:00)
[2023-04-08] MEDS ORDERED: SILVER SULFADIAZINE 1% TOP CREAM 400 GM JAR TP PRN (10:00)
[2023-04-08] MEDS: PANTOPRAZOLE SODIUM 40 MG VIAL IVPUSH SCH ×2 (10:21→21:22)
[2023-04-08] MEDS: CALCIUM ACETATE 667 MG CAPSULE (FP) PEG SCH ×3 (10:54→17:04)
[2023-04-08] MEDS: FERROUS SULFATE 220 MG/5 ML ELIXIR GT SCH ×2 (10:54→21:22)
[2023-04-08] MEDS: CHOLECALCIFEROL (VIT D3) 1,000 UNIT (25 MCG) TABLET GT SCH (10:56)
[2023-04-08] MEDS: amLODIPine BESYLATE 10 MG TABLET (FP) GT SCH (10:56)
[2023-04-08] MEDS: SERTRALINE HCL 25 MG TABLET (FP) NR SCH (10:57)
[2023-04-08] MEDS: EPOETIN ALFA-EPBX 40,000 UNIT/ML VIAL SQ SCH (11:48)
[2023-04-08] MEDS ORDERED: TUBE FEED DECLOGGING SOLUTION 12,000 UNITS GT ONE (12:00)
[2023-04-08] MEDS ORDERED: ACETAMINOPHEN 1000 MG/100 ML BAG IVPB PRN (13:42)
[2023-04-08] MEDS: SODIUM ZIRCONIUM CYCLOSILICATE (LOKELMA) 5 GM PACKET PO SCH (14:45)
[2023-04-08] MEDS: ERTAPENEM SODIUM 0.5 GM in SODIUM CHLORIDE 50 ML IVPB SCH (17:53)
[2023-04-08] MEDS: COLLAGENASE CLOSTRIDIUM HIST. 30 GRAMS TUBE TP SCH (18:51)
[2023-04-09] MEDS: SODIUM CHLORIDE 1,000 ML IV SCH (05:12)
[2023-04-09] MEDS: cloNIDine HCL 0.1 MG TABLET PEG SCH ×3 (06:45→21:35)
[2023-04-09 09:19] LABS: EOS % 2.1 % (0-4.5); HEMATOCRIT 32.2 % (32.4-45.2); LYMPH % 6.5 % (8-40); MCH 26.8 pg (25.7-33.7); MCHC 31.1 g/dl (32.0-36.0); MEAN CELL VOLUME 86.1 fl (80-96); MEAN PLT VOLUME 7.4 fl (7.5-11.1); MONO % 8.6 % (3.8-10.2); NEUT % 81.8 % (42.8-82.8); PLATELET COUNT 571 10^3/uL (134-434); RBC 3.74 M/mm3 (3.60-5.2); WHITE BLOOD COUNT 7.5 K/mm3 (4.0-10.0)
[2023-04-09 09:44] LABS: POTASSIUM 5.1 mmol/L (3.5-5.1)
[2023-04-09] MEDS: FERROUS SULFATE 220 MG/5 ML ELIXIR GT SCH ×2 (09:56→21:35)
[2023-04-09] MEDS: CALCIUM ACETATE 667 MG CAPSULE (FP) PEG SCH ×3 (09:56→16:43)
[2023-04-09 09:57] LABS: BLOOD UREA NITROGEN 66.6 mg/dL (7-18)
[2023-04-09] MEDS: SERTRALINE HCL 25 MG TABLET (FP) NR SCH (09:57)
[2023-04-09] MEDS: amLODIPine BESYLATE 10 MG TABLET (FP) GT SCH (09:57)
[2023-04-09] MEDS: SODIUM ZIRCONIUM CYCLOSILICATE (LOKELMA) 5 GM PACKET PO SCH ×2 (09:57→21:36)
[2023-04-09] MEDS: CHOLECALCIFEROL (VIT D3) 1,000 UNIT (25 MCG) TABLET GT SCH (09:57)
[2023-04-09 10:00] LABS: ALBUMIN 2.3 g/dl (3.4-5.0); CALCIUM 9.4 mg/dL (8.5-10.1); MAGNESIUM 2.7 mg/dL (1.8-2.4)
[2023-04-09] MEDS: PANTOPRAZOLE SODIUM 40 MG VIAL IVPUSH SCH ×2 (10:02→21:36)
[2023-04-09] MEDS: ERTAPENEM SODIUM 0.5 GM in SODIUM CHLORIDE 50 ML IVPB SCH (10:02)
[2023-04-09 10:03] LABS: CREATININE 4.2 mg/dL (0.55-1.3)
[2023-04-09] MEDS: COLLAGENASE CLOSTRIDIUM HIST. 30 GRAMS TUBE TP SCH (10:03)
[2023-04-09 10:04] LABS: BILIRUBIN,TOTAL 0.3 mg/dL (0.2-1); TOT PROT 7.1 g/dl (6.4-8.2)
[2023-04-09] MEDS: MINERAL OIL/PET HY-PHL TOPICAL OINTMENT 454 GM JAR TP SCH ×2 (14:51→21:36)
[2023-04-09 15:03] VITALS: BMI 21.0
[2023-04-09] MEDS ORDERED: LORazepam 2 MG/ML SDV VIAL IVPUSH PRN (15:39)
[2023-04-10 00:05] LABS: PARATHYROID HORM INTACT 7 pg/mL (15-65)
[2023-04-10] MEDS: cloNIDine HCL 0.1 MG TABLET PEG SCH ×3 (05:45→22:29)
[2023-04-10] MEDS ORDERED: hydrALAZINE HCL 20 MG/ML VIAL IVPB ONE (08:00)
[2023-04-10] MEDS: CALCIUM ACETATE 667 MG CAPSULE (FP) PEG SCH ×3 (08:25→18:37)
[2023-04-10] MEDS: SODIUM ZIRCONIUM CYCLOSILICATE (LOKELMA) 5 GM PACKET PO SCH ×3 (09:19→22:30)
[2023-04-10] MEDS: FERROUS SULFATE 220 MG/5 ML ELIXIR GT SCH ×3 (09:19→22:29)
[2023-04-10] MEDS: amLODIPine BESYLATE 10 MG TABLET (FP) GT SCH ×2 (09:19→12:51)
[2023-04-10] MEDS: CHOLECALCIFEROL (VIT D3) 1,000 UNIT (25 MCG) TABLET GT SCH ×2 (09:20→12:50)
[2023-04-10] MEDS: SERTRALINE HCL 25 MG TABLET (FP) NR SCH ×2 (09:20→12:51)
[2023-04-10] MEDS: PANTOPRAZOLE SODIUM 40 MG VIAL IVPUSH SCH ×2 (09:44→22:29)
[2023-04-10] MEDS: ERTAPENEM SODIUM 0.5 GM in SODIUM CHLORIDE 50 ML IVPB SCH (09:44)
[2023-04-10] MEDS: MINERAL OIL/PET HY-PHL TOPICAL OINTMENT 454 GM JAR TP SCH ×2 (09:45→22:30)
[2023-04-10] MEDS: COLLAGENASE CLOSTRIDIUM HIST. 30 GRAMS TUBE TP SCH (09:45)
[2023-04-10] MEDS: ALPRAZolam 0.25 MG TABLET GT PRN (12:55)
[2023-04-10 13:37] LABS: BASO % 1.2 % (0-2.0); EOS % 1.7 % (0-4.5); HEMATOCRIT 34.8 % (32.4-45.2); HEMOGLOBIN 11.1 GM/dL (10.7-15.3); LYMPH % 10.5 % (8-40); MEAN CELL VOLUME 84.3 fl (80-96); MEAN PLT VOLUME 7.3 fl (7.5-11.1); MONO % 11.1 % (3.8-10.2); NEUT % 75.5 % (42.8-82.8); PLATELET COUNT 602 10^3/uL (134-434); RBC 4.13 M/mm3 (3.60-5.2); RDW 17.7 % (11.6-15.6); WHITE BLOOD COUNT 7.1 K/mm3 (4.0-10.0)
[2023-04-10 13:54] LABS: CHLORIDE 118 mmol/L (98-107); POTASSIUM 4.7 mmol/L (3.5-5.1); SODIUM 148 mmol/L (136-145)
[2023-04-10 13:57] LABS: ALBUMIN 2.5 g/dl (3.4-5.0); ANION GAP 7 MMOL/L (8-16); BLOOD UREA NITROGEN 58.2 mg/dL (7-18); CO2 24 mmol/L (21-32)
[2023-04-10 14:00] LABS: CREATININE 4.3 mg/dL (0.55-1.3); SGOT/AST 15 U/L (15-37)
[2023-04-10 14:01] LABS: SGPT/ALT 10 U/L (13-61)
[2023-04-10 14:02] LABS: BILIRUBIN,TOTAL 0.4 mg/dL (0.2-1); TOT PROT 7.5 g/dl (6.4-8.2)
[2023-04-10 14:03] LABS: ALK PHOS 124 U/L (45-117)
[2023-04-10 14:28] LABS: GAMMA GLUTAMYL TRANSPEPTIDASE 90 U/L (5-85)
[2023-04-10 14:30] LABS: IRON SERUM 49 ug/dL (50-175)
[2023-04-10 14:35] LABS: GLUCOSE,RANDOM 47 mg/dL (74-106); TOTAL IRON BINDING CAPACITY 176 ug/dL (250-450)
[2023-04-10] MEDS: AMINO ACIDS/PROTEIN HYDROLYS 30 ML LIQUID.PKT GT SCH (18:37)
[2023-04-11] MEDS: cloNIDine HCL 0.1 MG TABLET PEG SCH ×3 (07:00→23:20)
[2023-04-11 09:50] LABS: BASO % 1.1 % (0-2.0); EOS % 2.9 % (0-4.5); HEMATOCRIT 31.9 % (32.4-45.2); HEMOGLOBIN 10.1 GM/dL (10.7-15.3); LYMPH % 11.5 % (8-40); MCHC 31.6 g/dl (32.0-36.0); MEAN CELL VOLUME 85.3 fl (80-96); MEAN PLT VOLUME 7.1 fl (7.5-11.1); MONO % 10.4 % (3.8-10.2); NEUT % 74.1 % (42.8-82.8); PLATELET COUNT 484 10^3/uL (134-434); RBC 3.74 M/mm3 (3.60-5.2); RDW 17.8 % (11.6-15.6); WHITE BLOOD COUNT 6.3 K/mm3 (4.0-10.0)
[2023-04-11] MEDS: AMINO ACIDS/PROTEIN HYDROLYS 30 ML LIQUID.PKT GT SCH ×2 (10:25→16:30)
[2023-04-11] MEDS: MINERAL OIL/PET HY-PHL TOPICAL OINTMENT 454 GM JAR TP SCH ×2 (10:25→23:33)
[2023-04-11] MEDS: FERROUS SULFATE 220 MG/5 ML ELIXIR GT SCH ×2 (10:25→23:20)
[2023-04-11] MEDS: SODIUM ZIRCONIUM CYCLOSILICATE (LOKELMA) 5 GM PACKET PO SCH ×2 (10:25→23:18)
[2023-04-11] MEDS: CHOLECALCIFEROL (VIT D3) 1,000 UNIT (25 MCG) TABLET GT SCH (10:26)
[2023-04-11] MEDS: CALCIUM ACETATE 667 MG CAPSULE (FP) PEG SCH ×3 (10:26→16:30)
[2023-04-11] MEDS: PANTOPRAZOLE SODIUM 40 MG VIAL IVPUSH SCH ×2 (10:26→23:23)
[2023-04-11] MEDS: amLODIPine BESYLATE 10 MG TABLET (FP) GT SCH (10:26)
[2023-04-11] MEDS: COLLAGENASE CLOSTRIDIUM HIST. 30 GRAMS TUBE TP SCH (10:27)
[2023-04-11] MEDS: SERTRALINE HCL 25 MG TABLET (FP) NR SCH (10:28)
[2023-04-11 10:53] LABS: POTASSIUM 4.1 mmol/L (3.5-5.1)
[2023-04-11 11:04] LABS: ALBUMIN 2.3 g/dl (3.4-5.0); BLOOD UREA NITROGEN 61.2 mg/dL (7-18); CALCIUM 9.9 mg/dL (8.5-10.1); MAGNESIUM 2.7 mg/dL (1.8-2.4)
[2023-04-11 11:07] LABS: CREATININE 4.2 mg/dL (0.55-1.3)
[2023-04-11 11:09] LABS: BILIRUBIN,TOTAL 0.5 mg/dL (0.2-1); TOT PROT 6.8 g/dl (6.4-8.2)
[2023-04-11] MEDS: ALPRAZolam 0.25 MG TABLET GT PRN (16:47)
[2023-04-11 18:07] LABS: FREE KAPPA,SERUM 195.2 mg/L (3.3-19.4)
[2023-04-12] MEDS: cloNIDine HCL 0.1 MG TABLET PEG SCH ×2 (06:35→15:54)
[2023-04-12] MEDS: SERTRALINE HCL 25 MG TABLET (FP) NR SCH (10:02)
[2023-04-12] MEDS: CALCIUM ACETATE 667 MG CAPSULE (FP) PEG SCH ×3 (10:02→17:30)
[2023-04-12] MEDS: AMINO ACIDS/PROTEIN HYDROLYS 30 ML LIQUID.PKT GT SCH ×2 (10:03→17:30)
[2023-04-12] MEDS: PANTOPRAZOLE SODIUM 40 MG VIAL IVPUSH SCH (10:03)
[2023-04-12] MEDS: amLODIPine BESYLATE 10 MG TABLET (FP) GT SCH (10:03)
[2023-04-12] MEDS: CHOLECALCIFEROL (VIT D3) 1,000 UNIT (25 MCG) TABLET GT SCH (10:03)
[2023-04-12] MEDS: MINERAL OIL/PET HY-PHL TOPICAL OINTMENT 454 GM JAR TP SCH (10:04)
[2023-04-12] MEDS: FERROUS SULFATE 220 MG/5 ML ELIXIR GT SCH (10:04)
[2023-04-12] MEDS: SODIUM ZIRCONIUM CYCLOSILICATE (LOKELMA) 5 GM PACKET PO SCH (10:05)
[2023-04-12] MEDS: COLLAGENASE CLOSTRIDIUM HIST. 30 GRAMS TUBE TP SCH (10:06)
[2023-04-12] MEDS: EPOETIN ALFA-EPBX 40,000 UNIT/ML VIAL SQ SCH (12:21)
[2023-04-12 13:22] VITALS: RESP 20
[2023-04-12 20:03] VITALS: BP 155/65; PULSE 81; TEMP 98.8
== END 2023-04-12 20:15 | DRG 466 ==
LOC: JER 19:39 → JERBED 23:14 → J8W 04-08 02:02
PROVIDERS: ADMIT Internal Medicine; ATTEND Nurse Practitioner Family
PROC: 0T2BX0Z Change Drainage Device in Bladder, External Approach (ICD-10-PCS; principal; 2023-04-07)
DX: T83.511A Infection and inflammatory reaction due to indwelling urethral catheter, initial encounter (principal); A41.89 Other specified sepsis; N17.9 Acute kidney failure, unspecified; I12.9 Hypertensive chronic kidney disease with stage 1 through stage 4 chronic kidney disease, or unspecified chronic kidney disease; N18.4 Chronic kidney disease, stage 4 (severe); E11.22 Type 2 diabetes mellitus with diabetic chronic kidney disease; N39.0 Urinary tract infection, site not specified; R41.82 Altered mental status, unspecified; E78.5 Hyperlipidemia, unspecified; I69.351 Hemiplegia and hemiparesis following cerebral infarction affecting right dominant side; F32.9 Major depressive disorder, single episode, unspecified; E83.52 Hypercalcemia; L89.123 Pressure ulcer of left upper back, stage 3; R64 Cachexia; E87.0 Hyperosmolality and hypernatremia; E87.20 Acidosis, unspecified; K94.23 Gastrostomy malfunction; E43 Unspecified severe protein-calorie malnutrition; R62.7 Adult failure to thrive; Z68.21 Body mass index [BMI] 21.0-21.9, adult; D63.8 Anemia in other chronic diseases classified elsewhere; G93.41 Metabolic encephalopathy; Y92.89 Other specified places as the place of occurrence of the external cause
CPT/HCPCS: 0241U-QW; 36415; 70450-TC; 71045-TC-FY; 74176-TC; 80053; 81003; 82232; 82272; 82553; 82607; 82728; 82746; 82803; 82962; 82977; 83540; 83550; 83605; 83615; 83735; 83883; 83970; 84100; 84155; 84165; 84484; 85025; 85027; 85610; 85730; 86922; 87040; 87086; 87635; 93005; 93010; 99291; Q5106

== ENCOUNTER 2023-05-30 01:37 | Inpatient (IN) | payer OTHER ==
[2023-05-30] MEDS ORDERED: ALBUTEROL SO4 2.5/IPRATROPIUM 0.5 INH SOL 3 ML VIAL.NEB. NEB ONE (01:43)
[2023-05-30] MEDS ORDERED: methylPREDNISolone NA SUCC 125 MG/2 ML VIAL ONE (01:43)
[2023-05-30] MEDS ORDERED: methylPREDNISolone NA SUCC 125 MG/2 ML VIAL IVPUSH ONE (02:04)
[2023-05-30] MEDS ORDERED: LACTATED RINGERS SOLUTION 1000 ML INFUS.BAG IV ONE ×2 (02:26→04:18)
[2023-05-30] MEDS ORDERED: PIPERACILLIN/TAZOB 4.5 GM 4.5 GM in DEXTROSE 5%-WATER 100 ML IVPB ONE (02:29)
[2023-05-30] MEDS ORDERED: VANCOMYCIN 1,000 MG in DEXTROSE 5%-WATER - 250 ML IVPB ONE (02:29)
[2023-05-30 02:43] LABS: ARTERIAL BLD GAS O2 SATURATION 74.5 % (95-98); ARTERIAL BLOOD GAS BASE EXCESS -0.2 mmol/L (-2-2); ARTERIAL BLOOD GAS PO2 40.8 mmHg (80-100); ARTERIAL BLOOD GAS pH 7.372 (7.350-7.450)
[2023-05-30] MEDS: ALBUTEROL SO4 2.5/IPRATROPIUM 0.5 INH SOL 3 ML VIAL.NEB. NEB SCH (02:46)
[2023-05-30 02:48] LABS: ALLENS TEST POSITIVE
[2023-05-30] MEDS ORDERED: PIPERACILLIN/TAZOB 4.5 GM 4.5 GM/100 ML BAG IVPB ONE (02:49)
[2023-05-30] MEDS ORDERED: VANCOMYCIN 1 GRAM (PRE-DOCKED) 1,000 MG/250 ML BAG IVPB ONE (02:49)
[2023-05-30 02:52] LABS: HEMATOCRIT 40.2 % (32.4-45.2); HEMOGLOBIN 13.2 GM/dL (10.7-15.3); MCH 26.2 pg (25.7-33.7); MCHC 32.9 g/dl (32.0-36.0); MEAN CELL VOLUME 79.6 fl (80-96); MEAN PLT VOLUME 8.9 fl (7.5-11.1); PLATELET COUNT 319 10^3/uL (134-434); RBC 5.05 M/mm3 (3.60-5.2); RDW 17.9 % (11.6-15.6); WHITE BLOOD COUNT 20.3 K/mm3 (4.0-10.0)
[2023-05-30 02:59] LABS: INR 1.03 (0.83-1.09); PROTHROMBIN TIME (PATIENT) 11.9 SEC (9.7-13.0)
[2023-05-30 03:01] LABS: ACTIVATED PTT 35.1 SECONDS (25.2-36.5)
[2023-05-30 03:06] LABS: EPI CELLS >36 /uL (0-25.1); HYALINE CASTS 6 /uL (0-3.1); PH,URINE 6.5 (5.0-8.0); URINE APPEARANCE CLOUDY; URINE BACTERIA 25 /uL (0-1359); URINE BILIRUBIN NEGATIVE (NEGATIVE); URINE COLOR YELLOW; URINE GLUCOSE (UA) 1+ (NEGATIVE); URINE KETONE NEGATIVE (NEGATIVE); URINE LEUK ESTERASE 2+ (NEGATIVE); URINE NITRITE NEGATIVE (NEGATIVE); URINE PROTEIN 3+ (NEGATIVE); URINE RBC 5 /uL (0-23.9); URINE UROBILINOGEN 0.2 mg/dL (0.2-1.0); URINE WBC 160 /uL (0-25.8)
[2023-05-30 03:11] LABS: CHLORIDE 104 mmol/L (98-107); POTASSIUM 5.5 mmol/L (3.5-5.1); SODIUM 141 mmol/L (136-145)
[2023-05-30 03:13] LABS: ALBUMIN 2.3 g/dl (3.4-5.0); ANION GAP 9 MMOL/L (8-16); CALCIUM 10.2 mg/dL (8.5-10.1); CO2 29 mmol/L (21-32); GLUCOSE,RANDOM 331 mg/dL (74-106); LIPASE 182 U/L (73-393)
[2023-05-30 03:17] LABS: CREATININE 5.2 mg/dL (0.55-1.3); SGOT/AST 21 U/L (15-37); SGPT/ALT 25 U/L (13-61)
[2023-05-30 03:19] LABS: BILIRUBIN,TOTAL 0.5 mg/dL (0.2-1); TOT PROT 7.4 g/dl (6.4-8.2)
[2023-05-30 03:20] LABS: ALK PHOS 133 U/L (45-117)
[2023-05-30 03:22] LABS: N-TERMINAL BNP 2479.5 pg/ml (5-125)
[2023-05-30 03:26] LABS: BLOOD UREA NITROGEN 127.3 mg/dL (7-18)
[2023-05-30] MEDS ORDERED: ASPIRIN 81 MG CHEWABLE TABLETS PO ONE (03:36)
[2023-05-30] MEDS ORDERED: ACETAMINOPHEN 1000 MG/100 ML BAG IVPB ONE (04:08)
[2023-05-30] MEDS ORDERED: ACETAMINOPHEN INJECTION 100 ML IVPB ONE (04:11)
[2023-05-30] MEDS ORDERED: ASPIRIN 81 MG CHEWABLE TABLETS ONE (04:11)
[2023-05-30 04:14] LABS: ARTERIAL BLD GAS O2 SATURATION 95.1 % (95-98); ARTERIAL BLOOD GAS PO2 75.8 mmHg (80-100); ARTERIAL BLOOD GAS pH 7.395 (7.350-7.450)
[2023-05-30] MEDS ORDERED: ASPIRIN 81 MG CHEWABLE TABLETS GT ONE (04:27)
[2023-05-30 06:26] LABS: ANISOCYTOSIS 3+; MACROCYTOSIS 0; OVALOCYTE 0
[2023-05-30 08:04] LABS: URINE CRYSTALS CA OXALATE FEW /hpf
[2023-05-30] MEDS ORDERED: cloNIDine HCL 0.1 MG TABLET PEG SCH (09:00)
[2023-05-30] MEDS ORDERED: cloNIDine HCL 0.1 MG TABLET ONE ×2 (09:28→21:51)
[2023-05-30] MEDS ORDERED: amLODIPine BESYLATE 10 MG TABLET (FP) ONE (09:29)
[2023-05-30] MEDS: amLODIPine BESYLATE 10 MG TABLET (FP) GT SCH (09:40)
[2023-05-30] MEDS ORDERED: oxyCODONE HCL 5 MG TABLET PEG PRN (09:53)
[2023-05-30] MEDS ORDERED: SILVER SULFADIAZINE 1% TOP CREAM 400 GM JAR TP SCH ×2 (10:00→11:10)
[2023-05-30] MEDS ORDERED: CALCIUM ALGINATE TP SCH (10:00)
[2023-05-30] MEDS ORDERED: LABETALOL HCL 20 MG/4 ML VIAL IVPUSH PRN (10:01)
[2023-05-30] MEDS ORDERED: risperiDONE 0.5 MG TABLET ONE ×2 (10:57→21:52)
[2023-05-30] MEDS: COLLAGENASE CLOSTRIDIUM HIST. 30 GRAMS TUBE TP SCH (11:37)
[2023-05-30] MEDS ORDERED: ALBUTEROL SO4 0.083% IH SOL 2.5 MG/3 ML VIAL.NEB. NEB ONE ×2 (11:40→15:14)
[2023-05-30] MEDS: risperiDONE 1 MG TABLET GT SCH ×2 (11:55→23:35)
[2023-05-30] MEDS: PIPERACILLIN/TAZOB 2.25 GM 2.25 GM in DEXTROSE 5%-WATER - 50 ML IVPB SCH ×2 (12:09→17:14)
[2023-05-30] MEDS ORDERED: PIPERACILLIN/TAZOB 2.25 GM 2.25 GM/50 ML BAG IVPB ONE ×2 (12:09→17:02)
[2023-05-30] MEDS: ALBUTEROL SO4 0.083% IH SOL 2.5 MG/3 ML VIAL.NEB. NEB SCH ×3 (12:10→21:34)
[2023-05-30] MEDS: cloNIDine HCL 0.1 MG TABLET PEG SCH ×2 (13:21→23:35)
[2023-05-30] MEDS ORDERED: CALCIUM ACETATE 667 MG CAPSULE (FP) PEG SCH (14:00)
[2023-05-30] MEDS ORDERED: HEPARIN NA (PORCINE) 5,000 UNITS/ML 1ML VIAL SQ SCH (14:00)
[2023-05-30] MEDS: MINERAL OIL/PET HY-PHL TOPICAL OINTMENT 454 GM JAR TP SCH ×2 (14:37→23:34)
[2023-05-30] MEDS: FERROUS SULFATE 220 MG/5 ML ELIXIR GT SCH ×2 (14:38→23:35)
[2023-05-30] MEDS ORDERED: oxyCODONE HCL 5 MG TABLET ONE (17:02)
[2023-05-30] MEDS ORDERED: SODIUM ZIRCONIUM CYCLOSILICATE (LOKELMA) 5 GM PACKET PO SCH (17:30)
[2023-05-30] MEDS ORDERED: SODIUM ZIRCONIUM CYCLOSILICATE (LOKELMA) 10 GM PACKET ONE (17:46)
[2023-05-30] MEDS ORDERED: PIPERACILLIN/TAZOB 2.25 GM 2.25 GM in DEXTROSE 5%-WATER - 50 ML IVPB SCH (18:00)
[2023-05-30] MEDS ORDERED: PIPERACILLIN/TAZOB 3.375 GM 3.375 GM in DEXTROSE 5%-WATER - 50 ML IVPB SCH (18:00)
[2023-05-30] MEDS: SODIUM CHLORIDE 0.45% 1,000 ML IV SCH (18:05)
[2023-05-30] MEDS ORDERED: PANTOPRAZOLE SODIUM 40 MG/100 ML BAG IVPB ONE (21:52)
[2023-05-30] MEDS ORDERED: HEPARIN NA (PORCINE) 5,000 UNITS/ML 1ML VIAL ONE (21:52)
[2023-05-30] MEDS: VALPROATE SODIUM 250 MG/5 ML UNIT DOSE CUP PEG SCH (23:35)
[2023-05-30] MEDS: HEPARIN NA (PORCINE) 5,000 UNITS/ML 1ML VIAL SQ SCH (23:35)
[2023-05-30] MEDS: INSULIN (LEVEMIR) 100 UNITS/ML UNITS SQ SCH (23:35)
[2023-05-30] MEDS: PANTOPRAZOLE SODIUM 40 MG VIAL IVPUSH SCH (23:35)
[2023-05-31] MEDS: PIPERACILLIN/TAZOB 2.25 GM 2.25 GM in DEXTROSE 5%-WATER - 50 ML IVPB SCH ×3 (02:21→17:34)
[2023-05-31] MEDS: cloNIDine HCL 0.1 MG TABLET PEG SCH ×3 (05:28→22:44)
[2023-05-31] MEDS: ALBUTEROL SO4 0.083% IH SOL 2.5 MG/3 ML VIAL.NEB. NEB SCH ×4 (08:21→20:05)
[2023-05-31 09:20] LABS: CHLORIDE 104 mmol/L (98-107); POTASSIUM 4.7 mmol/L (3.5-5.1); SODIUM 139 mmol/L (136-145)
[2023-05-31 09:22] LABS: ALBUMIN 2.1 g/dl (3.4-5.0); ANION GAP 11 MMOL/L (8-16); CALCIUM 9.4 mg/dL (8.5-10.1); CO2 25 mmol/L (21-32); GLUCOSE,RANDOM 229 mg/dL (74-106)
[2023-05-31 09:24] LABS: MAGNESIUM 3.5 mg/dL (1.8-2.4)
[2023-05-31 09:26] LABS: CREATININE 4.6 mg/dL (0.55-1.3); PHOSPHOROUS 5.9 mg/dL (2.5-4.9); SGOT/AST 21 U/L (15-37); SGPT/ALT 24 U/L (13-61)
[2023-05-31 09:27] LABS: BILIRUBIN,TOTAL 0.4 mg/dL (0.2-1); TOT PROT 7.2 g/dl (6.4-8.2)
[2023-05-31 09:28] LABS: ALK PHOS 114 U/L (45-117)
[2023-05-31 09:29] LABS: BLOOD UREA NITROGEN 120.3 mg/dL (7-18)
[2023-05-31] MEDS: PANTOPRAZOLE SODIUM 40 MG VIAL IVPUSH SCH ×2 (10:33→23:23)
[2023-05-31] MEDS: HEPARIN NA (PORCINE) 5,000 UNITS/ML 1ML VIAL SQ SCH ×2 (10:34→22:44)
[2023-05-31] MEDS: SERTRALINE HCL 25 MG TABLET (FP) PO SCH (10:34)
[2023-05-31] MEDS: amLODIPine BESYLATE 10 MG TABLET (FP) GT SCH (10:34)
[2023-05-31] MEDS: FERROUS SULFATE 220 MG/5 ML ELIXIR GT SCH ×2 (10:35→22:43)
[2023-05-31] MEDS: MINERAL OIL/PET HY-PHL TOPICAL OINTMENT 454 GM JAR TP SCH (10:35)
[2023-05-31] MEDS: VALPROATE SODIUM 250 MG/5 ML UNIT DOSE CUP PEG SCH ×2 (10:36→22:43)
[2023-05-31] MEDS: risperiDONE 1 MG TABLET GT SCH ×2 (10:36→22:43)
[2023-05-31 12:21] LABS: BASO % 0.1 % (0-2.0); EOS % 0.1 % (0-4.5); HEMOGLOBIN 10.7 GM/dL (10.7-15.3); LYMPH % 3.8 % (8-40); MCH 25.8 pg (25.7-33.7); MCHC 31.6 g/dl (32.0-36.0); MEAN CELL VOLUME 81.9 fl (80-96); MEAN PLT VOLUME 8.6 fl (7.5-11.1); PLATELET COUNT 262 10^3/uL (134-434); RBC 4.16 M/mm3 (3.60-5.2); RDW 17.8 % (11.6-15.6); WHITE BLOOD COUNT 12.7 K/mm3 (4.0-10.0)
[2023-05-31] MEDS: COLLAGENASE CLOSTRIDIUM HIST. 30 GRAMS TUBE TP SCH (12:33)
[2023-05-31] MEDS: SODIUM CHLORIDE 0.45% 1,000 ML IV SCH ×2 (14:59→18:51)
[2023-05-31] MEDS: BACITRACIN ZINC 15 GM TUBE TOPICAL OINTMENT TP SCH (15:59)
[2023-05-31] MEDS: INSULIN (LEVEMIR) 100 UNITS/ML UNITS SQ SCH (23:22)
[2023-06-01] MEDS: PIPERACILLIN/TAZOB 2.25 GM 2.25 GM in DEXTROSE 5%-WATER - 50 ML IVPB SCH ×3 (02:24→17:51)
[2023-06-01] MEDS: MINERAL OIL/PET HY-PHL TOPICAL OINTMENT 454 GM JAR TP SCH ×3 (03:26→22:20)
[2023-06-01] MEDS: cloNIDine HCL 0.1 MG TABLET PEG SCH ×2 (06:06→23:29)
[2023-06-01] MEDS: ALBUTEROL SO4 0.083% IH SOL 2.5 MG/3 ML VIAL.NEB. NEB SCH ×4 (07:45→20:05)
[2023-06-01 09:25] LABS: HEMATOCRIT 32.2 % (32.4-45.2); HEMOGLOBIN 10.7 GM/dL (10.7-15.3); MCH 26.3 pg (25.7-33.7); MCHC 33.2 g/dl (32.0-36.0); MEAN CELL VOLUME 79.3 fl (80-96); MEAN PLT VOLUME 8.7 fl (7.5-11.1); PLATELET COUNT 270 10^3/uL (134-434); RBC 4.07 M/mm3 (3.60-5.2); RDW 18.3 % (11.6-15.6); WHITE BLOOD COUNT 11.8 K/mm3 (4.0-10.0)
[2023-06-01 09:55] LABS: ANISOCYTOSIS 0; HELMET CELLS 0; HOWELL-JOLLY BODIES 0; MACROCYTOSIS 0; OVALOCYTE 0; ROULEAU 0; SICKELED CELLS 0; TARGET CELLS 0; TEAR DROP CELLS 0; TOXIC GRANULATION 0
[2023-06-01 09:59] LABS: CHLORIDE 102 mmol/L (98-107); POTASSIUM 3.8 mmol/L (3.5-5.1); SODIUM 138 mmol/L (136-145)
[2023-06-01 10:03] LABS: CALCIUM 8.6 mg/dL (8.5-10.1)
[2023-06-01 10:04] LABS: ALBUMIN 1.7 g/dl (3.4-5.0); ANION GAP 9 MMOL/L (8-16); CO2 27 mmol/L (21-32); GLUCOSE,RANDOM 234 mg/dL (74-106)
[2023-06-01 10:07] LABS: CREATININE 4.3 mg/dL (0.55-1.3); SGOT/AST 10 U/L (15-37); SGPT/ALT 17 U/L (13-61)
[2023-06-01 10:09] LABS: BILIRUBIN,TOTAL 0.2 mg/dL (0.2-1)
[2023-06-01 10:10] LABS: ALK PHOS 112 U/L (45-117)
[2023-06-01] MEDS: risperiDONE 1 MG TABLET GT SCH (10:10)
[2023-06-01] MEDS: amLODIPine BESYLATE 10 MG TABLET (FP) GT SCH (10:10)
[2023-06-01] MEDS: SERTRALINE HCL 25 MG TABLET (FP) PO SCH (10:10)
[2023-06-01] MEDS: HEPARIN NA (PORCINE) 5,000 UNITS/ML 1ML VIAL SQ SCH ×2 (10:10→22:18)
[2023-06-01] MEDS: FERROUS SULFATE 220 MG/5 ML ELIXIR GT SCH ×2 (10:10→22:19)
[2023-06-01] MEDS: VALPROATE SODIUM 250 MG/5 ML UNIT DOSE CUP PEG SCH ×2 (10:11→22:19)
[2023-06-01 10:12] LABS: BLOOD UREA NITROGEN 109.6 mg/dL (7-18)
[2023-06-01] MEDS: BACITRACIN ZINC 15 GM TUBE TOPICAL OINTMENT TP SCH (10:13)
[2023-06-01] MEDS: COLLAGENASE CLOSTRIDIUM HIST. 30 GRAMS TUBE TP SCH (10:13)
[2023-06-01] MEDS: PANTOPRAZOLE SODIUM 40 MG VIAL IVPUSH SCH ×2 (10:36→22:16)
[2023-06-01] MEDS: SODIUM CHLORIDE 0.45% 1,000 ML IV SCH (11:10)
[2023-06-01 15:09] VITALS: BMI 23.2
[2023-06-01] MEDS: INSULIN (LEVEMIR) 100 UNITS/ML UNITS SQ SCH (23:29)
[2023-06-02] MEDS: PIPERACILLIN/TAZOB 2.25 GM 2.25 GM in DEXTROSE 5%-WATER - 50 ML IVPB SCH ×3 (03:39→17:30)
[2023-06-02] MEDS: cloNIDine HCL 0.1 MG TABLET PEG SCH ×4 (05:38→22:15)
[2023-06-02] MEDS: risperiDONE 1 MG TABLET GT SCH ×3 (05:39→22:15)
[2023-06-02] MEDS: ALBUTEROL SO4 0.083% IH SOL 2.5 MG/3 ML VIAL.NEB. NEB SCH ×4 (08:10→18:59)
[2023-06-02] MEDS: SODIUM CHLORIDE 0.45% 1,000 ML IV SCH ×2 (08:29→22:10)
[2023-06-02 08:51] LABS: HEMOGLOBIN 11.8 GM/dL (10.7-15.3); MCH 25.8 pg (25.7-33.7); MEAN CELL VOLUME 80.4 fl (80-96); MEAN PLT VOLUME 8.7 fl (7.5-11.1); PLATELET COUNT 293 10^3/uL (134-434); RDW 17.8 % (11.6-15.6); WHITE BLOOD COUNT 11.2 K/mm3 (4.0-10.0)
[2023-06-02 09:12] LABS: POTASSIUM 3.7 mmol/L (3.5-5.1)
[2023-06-02 09:16] LABS: CALCIUM 9.2 mg/dL (8.5-10.1)
[2023-06-02 09:17] LABS: BLOOD UREA NITROGEN 96.6 mg/dL (7-18); MAGNESIUM 3.2 mg/dL (1.8-2.4)
[2023-06-02 09:20] LABS: CREATININE 3.8 mg/dL (0.55-1.3); PHOSPHOROUS 3.5 mg/dL (2.5-4.9)
[2023-06-02 09:21] LABS: BILIRUBIN,TOTAL 0.2 mg/dL (0.2-1); TOT PROT 7.2 g/dl (6.4-8.2)
[2023-06-02] MEDS: FERROUS SULFATE 220 MG/5 ML ELIXIR GT SCH ×2 (11:06→22:15)
[2023-06-02] MEDS: VALPROATE SODIUM 250 MG/5 ML UNIT DOSE CUP PEG SCH ×2 (11:06→22:13)
[2023-06-02] MEDS: HEPARIN NA (PORCINE) 5,000 UNITS/ML 1ML VIAL SQ SCH ×2 (11:06→22:13)
[2023-06-02] MEDS: SERTRALINE HCL 25 MG TABLET (FP) PO SCH (11:06)
[2023-06-02] MEDS: amLODIPine BESYLATE 10 MG TABLET (FP) GT SCH (11:06)
[2023-06-02] MEDS: PANTOPRAZOLE SODIUM 40 MG VIAL IVPUSH SCH (11:07)
[2023-06-02] MEDS: MINERAL OIL/PET HY-PHL TOPICAL OINTMENT 454 GM JAR TP SCH ×2 (11:50→22:15)
[2023-06-02] MEDS: BACITRACIN ZINC 15 GM TUBE TOPICAL OINTMENT TP SCH (11:50)
[2023-06-02] MEDS: COLLAGENASE CLOSTRIDIUM HIST. 30 GRAMS TUBE TP SCH (11:50)
[2023-06-02] MEDS: INSULIN (LEVEMIR) 100 UNITS/ML UNITS SQ SCH (22:13)
[2023-06-02] MEDS: CHOLECALCIFEROL (VIT D3) 1,000 UNIT (25 MCG) TABLET GT SCH (22:15)
[2023-06-02] MEDS: ALPRAZolam 0.25 MG TABLET GT SCH (22:15)
[2023-06-03] MEDS: PIPERACILLIN/TAZOB 2.25 GM 2.25 GM in DEXTROSE 5%-WATER - 50 ML IVPB SCH ×3 (02:22→17:02)
[2023-06-03] MEDS: cloNIDine HCL 0.1 MG TABLET PEG SCH ×3 (06:55→22:33)
[2023-06-03] MEDS: SODIUM CHLORIDE 0.45% 1,000 ML IV SCH ×2 (06:55→22:34)
[2023-06-03] MEDS: ALBUTEROL SO4 0.083% IH SOL 2.5 MG/3 ML VIAL.NEB. NEB SCH ×4 (08:10→20:19)
[2023-06-03 08:11] LABS: POTASSIUM 3.1 mmol/L (3.5-5.1)
[2023-06-03 08:13] LABS: CALCIUM 8.7 mg/dL (8.5-10.1)
[2023-06-03 08:14] LABS: ALBUMIN 1.7 g/dl (3.4-5.0); BLOOD UREA NITROGEN 84.4 mg/dL (7-18); MAGNESIUM 2.9 mg/dL (1.8-2.4)
[2023-06-03 08:17] LABS: CREATININE 3.4 mg/dL (0.55-1.3); PHOSPHOROUS 3.2 mg/dL (2.5-4.9)
[2023-06-03 08:18] LABS: TOT PROT 6.4 g/dl (6.4-8.2)
[2023-06-03 08:19] LABS: BILIRUBIN,TOTAL 0.3 mg/dL (0.2-1)
[2023-06-03] MEDS ORDERED: POTASSIUM CHLORIDE ORAL LIQUID 20 MEQ/15 ML GT ONE (08:33)
[2023-06-03] MEDS: KCL 10 MEQ IVPB 10 MEQ/100 ML INFUS.BAG IVPB SCH ×3 (09:19→10:28)
[2023-06-03] MEDS: ALPRAZolam 0.25 MG TABLET GT SCH ×2 (09:58→22:36)
[2023-06-03] MEDS: CHOLECALCIFEROL (VIT D3) 1,000 UNIT (25 MCG) TABLET GT SCH ×2 (09:58→22:33)
[2023-06-03] MEDS: SERTRALINE HCL 25 MG TABLET (FP) PO SCH (09:58)
[2023-06-03] MEDS: amLODIPine BESYLATE 10 MG TABLET (FP) GT SCH (09:58)
[2023-06-03] MEDS: HEPARIN NA (PORCINE) 5,000 UNITS/ML 1ML VIAL SQ SCH ×2 (09:59→22:33)
[2023-06-03] MEDS: VALPROATE SODIUM 250 MG/5 ML UNIT DOSE CUP PEG SCH ×2 (10:00→22:33)
[2023-06-03] MEDS: FERROUS SULFATE 220 MG/5 ML ELIXIR GT SCH ×2 (10:00→22:34)
[2023-06-03] MEDS: risperiDONE 1 MG TABLET GT SCH ×2 (10:00→22:33)
[2023-06-03] MEDS: BACITRACIN ZINC 15 GM TUBE TOPICAL OINTMENT TP SCH (10:00)
[2023-06-03] MEDS: COLLAGENASE CLOSTRIDIUM HIST. 30 GRAMS TUBE TP SCH (10:02)
[2023-06-03] MEDS: MINERAL OIL/PET HY-PHL TOPICAL OINTMENT 454 GM JAR TP SCH ×2 (10:02→22:34)
[2023-06-03 10:28] LABS: HEMATOCRIT 33.4 % (32.4-45.2); HEMOGLOBIN 11.2 GM/dL (10.7-15.3); MCH 26.2 pg (25.7-33.7); MCHC 33.6 g/dl (32.0-36.0); MEAN CELL VOLUME 78.1 fl (80-96); MEAN PLT VOLUME 8.3 fl (7.5-11.1); PLATELET COUNT 252 10^3/uL (134-434); RBC 4.28 M/mm3 (3.60-5.2); RDW 17.7 % (11.6-15.6); WHITE BLOOD COUNT 13.9 K/mm3 (4.0-10.0)
[2023-06-03] MEDS: INSULIN ASPART SLIDING SCALE (NOVOLOG) 1 VIAL SQ SCH (16:34)
[2023-06-03] MEDS: INSULIN (LEVEMIR) 100 UNITS/ML UNITS SQ SCH (22:34)
[2023-06-03] MEDS: ACETAMINOPHEN 325 MG TABLET (FP) PO PRN (23:07)
[2023-06-04] MEDS ORDERED: VANCOMYCIN/WATER FOR INJ (PEG) 750 MG/150 ML BAG IVPB ONE
[2023-06-04] MEDS: PIPERACILLIN/TAZOB 2.25 GM 2.25 GM in DEXTROSE 5%-WATER - 50 ML IVPB SCH ×3 (02:01→17:26)
[2023-06-04 02:48] LABS: PH,URINE 5.5 (5.0-8.0); URINE APPEARANCE Clear; URINE BILIRUBIN Negative (NEGATIVE); URINE COLOR Yellow; URINE GLUCOSE (UA) 2+ (NEGATIVE); URINE KETONE Negative (NEGATIVE); URINE LEUK ESTERASE Trace (NEGATIVE); URINE NITRITE Negative (NEGATIVE); URINE PROTEIN 2+ (NEGATIVE); URINE UROBILINOGEN 0.2 mg/dL (0.2-1.0)
[2023-06-04 02:58] LABS: EPI CELLS 29.9 /uL (0-25.1); HYALINE CASTS 0.29 /uL (0-3.1); URINE BACTERIA 206.9 /uL (0-1359); URINE RBC 2.6 /uL (0-23.9); URINE WBC 45.5 /uL (0-25.8)
[2023-06-04] MEDS: cloNIDine HCL 0.1 MG TABLET PEG SCH ×3 (05:17→21:16)
[2023-06-04 05:35] LABS: URINE CRYSTALS NONE SEEN /hpf; YEAST PRESENT (NEGATIVE)
[2023-06-04] MEDS: ACETAMINOPHEN 325 MG TABLET (FP) PO PRN (06:32)
[2023-06-04] MEDS: INSULIN ASPART SLIDING SCALE (NOVOLOG) 1 VIAL SQ SCH ×3 (06:32→16:46)
[2023-06-04 07:32] LABS: HEMOGLOBIN 10.2 GM/dL (10.7-15.3); MCH 25.6 pg (25.7-33.7); MCHC 31.8 g/dl (32.0-36.0); MEAN CELL VOLUME 80.7 fl (80-96); MEAN PLT VOLUME 8.6 fl (7.5-11.1); PLATELET COUNT 167 10^3/uL (134-434); RBC 3.96 M/mm3 (3.60-5.2); RDW 17.6 % (11.6-15.6); WHITE BLOOD COUNT 15.2 K/mm3 (4.0-10.0)
[2023-06-04 07:50] LABS: POTASSIUM 3.8 mmol/L (3.5-5.1)
[2023-06-04 07:53] LABS: BLOOD UREA NITROGEN 76.1 mg/dL (7-18)
[2023-06-04 07:54] LABS: MAGNESIUM 2.6 mg/dL (1.8-2.4)
[2023-06-04 07:55] LABS: PHOSPHOROUS 3.4 mg/dL (2.5-4.9)
[2023-06-04 07:56] LABS: CREATININE 3.3 mg/dL (0.55-1.3)
[2023-06-04] MEDS: ALBUTEROL SO4 0.083% IH SOL 2.5 MG/3 ML VIAL.NEB. NEB SCH ×4 (08:08→20:04)
[2023-06-04] MEDS: HEPARIN NA (PORCINE) 5,000 UNITS/ML 1ML VIAL SQ SCH ×2 (10:43→21:17)
[2023-06-04] MEDS: VALPROATE SODIUM 250 MG/5 ML UNIT DOSE CUP PEG SCH ×2 (10:43→21:16)
[2023-06-04] MEDS: BACITRACIN ZINC 15 GM TUBE TOPICAL OINTMENT TP SCH (10:43)
[2023-06-04] MEDS: MINERAL OIL/PET HY-PHL TOPICAL OINTMENT 454 GM JAR TP SCH ×2 (10:43→21:17)
[2023-06-04] MEDS: FERROUS SULFATE 220 MG/5 ML ELIXIR GT SCH ×2 (10:43→21:16)
[2023-06-04] MEDS: SERTRALINE HCL 25 MG TABLET (FP) PO SCH (10:44)
[2023-06-04] MEDS: COLLAGENASE CLOSTRIDIUM HIST. 30 GRAMS TUBE TP SCH (10:44)
[2023-06-04] MEDS: amLODIPine BESYLATE 10 MG TABLET (FP) GT SCH (10:44)
[2023-06-04] MEDS: CHOLECALCIFEROL (VIT D3) 1,000 UNIT (25 MCG) TABLET GT SCH ×2 (10:45→21:16)
[2023-06-04] MEDS: ALPRAZolam 0.25 MG TABLET GT PRN (10:46)
[2023-06-04] MEDS: SODIUM CHLORIDE 0.45% 1,000 ML IV SCH (17:30)
[2023-06-04 17:59] LABS: PH,URINE 5.5 (5.0-8.0); URINE APPEARANCE Clear; URINE BILIRUBIN Negative (NEGATIVE); URINE COLOR Yellow; URINE GLUCOSE (UA) 2+ (NEGATIVE); URINE KETONE Negative (NEGATIVE); URINE LEUK ESTERASE Trace (NEGATIVE); URINE NITRITE Negative (NEGATIVE); URINE PROTEIN 2+ (NEGATIVE); URINE UROBILINOGEN 0.2 mg/dL (0.2-1.0)
[2023-06-04 18:28] LABS: EPI CELLS 16.9 /uL (0-25.1); HYALINE CASTS 0.43 /uL (0-3.1); URINE BACTERIA 5.1 /uL (0-1359); URINE RBC 5.8 /uL (0-23.9); URINE WBC 24.6 /uL (0-25.8)
[2023-06-04 18:56] LABS: YEAST NEGATIVE (NEGATIVE)
[2023-06-04] MEDS ORDERED: ACETAMINOPHEN 1000 MG/100 ML BAG IVPB PRN (20:23)
[2023-06-04] MEDS: INSULIN (LEVEMIR) 100 UNITS/ML UNITS SQ SCH (21:17)
[2023-06-05] MEDS: PIPERACILLIN/TAZOB 2.25 GM 2.25 GM in DEXTROSE 5%-WATER - 50 ML IVPB SCH ×3 (01:01→17:05)
[2023-06-05] MEDS: SODIUM CHLORIDE 0.45% 1,000 ML IV SCH (01:01)
[2023-06-05] MEDS: INSULIN ASPART SLIDING SCALE (NOVOLOG) 1 VIAL SQ SCH ×3 (06:07→17:00)
[2023-06-05] MEDS: cloNIDine HCL 0.1 MG TABLET PEG SCH ×3 (06:07→22:04)
[2023-06-05] MEDS: ALBUTEROL SO4 0.083% IH SOL 2.5 MG/3 ML VIAL.NEB. NEB SCH ×4 (08:04→20:12)
[2023-06-05 09:14] LABS: HEMATOCRIT 30.8 % (32.4-45.2); MCH 25.9 pg (25.7-33.7); MCHC 32.3 g/dl (32.0-36.0); MEAN PLT VOLUME 8.4 fl (7.5-11.1); PLATELET COUNT 251 10^3/uL (134-434); RBC 3.85 M/mm3 (3.60-5.2); WHITE BLOOD COUNT 13.3 K/mm3 (4.0-10.0)
[2023-06-05 09:31] LABS: POTASSIUM 3.5 mmol/L (3.5-5.1)
[2023-06-05 09:32] LABS: CALCIUM 9.7 mg/dL (8.5-10.1)
[2023-06-05 09:33] LABS: BLOOD UREA NITROGEN 74.3 mg/dL (7-18)
[2023-06-05 09:36] LABS: CREATININE 3.3 mg/dL (0.55-1.3)
[2023-06-05] MEDS: amLODIPine BESYLATE 10 MG TABLET (FP) GT SCH (10:28)
[2023-06-05] MEDS: HEPARIN NA (PORCINE) 5,000 UNITS/ML 1ML VIAL SQ SCH ×2 (10:28→22:05)
[2023-06-05] MEDS: COLLAGENASE CLOSTRIDIUM HIST. 30 GRAMS TUBE TP SCH (10:28)
[2023-06-05] MEDS: CHOLECALCIFEROL (VIT D3) 1,000 UNIT (25 MCG) TABLET GT SCH ×2 (10:28→22:04)
[2023-06-05] MEDS: MINERAL OIL/PET HY-PHL TOPICAL OINTMENT 454 GM JAR TP SCH ×2 (10:28→22:06)
[2023-06-05] MEDS: BACITRACIN ZINC 15 GM TUBE TOPICAL OINTMENT TP SCH (10:28)
[2023-06-05] MEDS: SERTRALINE HCL 25 MG TABLET (FP) PO SCH (10:31)
[2023-06-05] MEDS: VALPROATE SODIUM 250 MG/5 ML UNIT DOSE CUP PEG SCH ×2 (10:32→22:05)
[2023-06-05] MEDS: FERROUS SULFATE 220 MG/5 ML ELIXIR GT SCH ×2 (10:32→22:05)
[2023-06-05] MEDS: INSULIN (LEVEMIR) 100 UNITS/ML UNITS SQ SCH (22:04)
[2023-06-06] MEDS: PIPERACILLIN/TAZOB 2.25 GM 2.25 GM in DEXTROSE 5%-WATER - 50 ML IVPB SCH ×3 (02:53→18:03)
[2023-06-06] MEDS: cloNIDine HCL 0.1 MG TABLET PEG SCH ×2 (05:56→14:24)
[2023-06-06] MEDS: INSULIN ASPART SLIDING SCALE (NOVOLOG) 1 VIAL SQ SCH ×3 (06:00→16:36)
[2023-06-06] MEDS: ALBUTEROL SO4 0.083% IH SOL 2.5 MG/3 ML VIAL.NEB. NEB SCH ×4 (08:14→20:20)
[2023-06-06 08:57] LABS: HEMATOCRIT 29.6 % (32.4-45.2); HEMOGLOBIN 9.7 GM/dL (10.7-15.3); MCH 26.1 pg (25.7-33.7); MCHC 32.8 g/dl (32.0-36.0); MEAN CELL VOLUME 79.4 fl (80-96); MEAN PLT VOLUME 7.9 fl (7.5-11.1); PLATELET COUNT 289 10^3/uL (134-434); RBC 3.74 M/mm3 (3.60-5.2)
[2023-06-06 09:19] LABS: POTASSIUM 3.2 mmol/L (3.5-5.1)
[2023-06-06 09:27] LABS: CALCIUM 10.9 mg/dL (8.5-10.1)
[2023-06-06 09:28] LABS: ALBUMIN 1.4 g/dl (3.4-5.0); BLOOD UREA NITROGEN 71.8 mg/dL (7-18); MAGNESIUM 2.8 mg/dL (1.8-2.4)
[2023-06-06 09:29] LABS: BILIRUBIN,TOTAL 0.3 mg/dL (0.2-1); PHOSPHOROUS 4.3 mg/dL (2.5-4.9); TOT PROT 6.1 g/dl (6.4-8.2)
[2023-06-06 09:31] LABS: CREATININE 3.4 mg/dL (0.55-1.3)
[2023-06-06] MEDS: BACITRACIN ZINC 15 GM TUBE TOPICAL OINTMENT TP SCH (10:32)
[2023-06-06] MEDS: COLLAGENASE CLOSTRIDIUM HIST. 30 GRAMS TUBE TP SCH (10:32)
[2023-06-06] MEDS: FERROUS SULFATE 220 MG/5 ML ELIXIR GT SCH ×2 (10:32→23:58)
[2023-06-06] MEDS: VALPROATE SODIUM 250 MG/5 ML UNIT DOSE CUP PEG SCH (10:32)
[2023-06-06] MEDS: amLODIPine BESYLATE 10 MG TABLET (FP) GT SCH (10:32)
[2023-06-06] MEDS: risperiDONE 1 MG TABLET GT SCH ×2 (10:32→23:58)
[2023-06-06] MEDS: MINERAL OIL/PET HY-PHL TOPICAL OINTMENT 454 GM JAR TP SCH (10:32)
[2023-06-06] MEDS: HEPARIN NA (PORCINE) 5,000 UNITS/ML 1ML VIAL SQ SCH ×2 (10:32→23:57)
[2023-06-06] MEDS: CHOLECALCIFEROL (VIT D3) 1,000 UNIT (25 MCG) TABLET GT SCH ×2 (10:33→23:57)
[2023-06-06] MEDS: SERTRALINE HCL 25 MG TABLET (FP) PO SCH (10:33)
[2023-06-06] MEDS ORDERED: POTASSIUM CHLORIDE ORAL LIQUID 20 MEQ/15 ML PO ONE (13:20)
[2023-06-06] MEDS ORDERED: FENTANYL PATCH WASTE TD PRN (13:28)
[2023-06-06] MEDS ORDERED: fentaNYL 25mcg/hr PATCH.TD72 TD SCH ×2 (14:15→16:30)
[2023-06-06] MEDS ORDERED: VANCOMYCIN/WATER FOR INJ (PEG) 1,000 MG/200 ML BAG IVPB ONE (14:24)
[2023-06-06] MEDS: INSULIN (LEVEMIR) 100 UNITS/ML UNITS SQ SCH (23:58)
[2023-06-07] MEDS: VALPROATE SODIUM 250 MG/5 ML UNIT DOSE CUP PEG SCH ×3 (00:02→22:51)
[2023-06-07] MEDS: cloNIDine HCL 0.1 MG TABLET PEG SCH ×4 (00:03→22:50)
[2023-06-07] MEDS: MINERAL OIL/PET HY-PHL TOPICAL OINTMENT 454 GM JAR TP SCH ×3 (00:03→22:51)
[2023-06-07] MEDS: PIPERACILLIN/TAZOB 2.25 GM 2.25 GM in DEXTROSE 5%-WATER - 50 ML IVPB SCH ×3 (01:29→17:22)
[2023-06-07] MEDS: INSULIN ASPART SLIDING SCALE (NOVOLOG) 1 VIAL SQ SCH ×3 (06:26→17:20)
[2023-06-07] MEDS: ALBUTEROL SO4 0.083% IH SOL 2.5 MG/3 ML VIAL.NEB. NEB SCH ×4 (08:16→20:17)
[2023-06-07 08:28] LABS: HEMOGLOBIN 9.5 GM/dL (10.7-15.3); MCH 26.3 pg (25.7-33.7); MCHC 32.8 g/dl (32.0-36.0); MEAN CELL VOLUME 80.3 fl (80-96); MEAN PLT VOLUME 7.4 fl (7.5-11.1); PLATELET COUNT 300 10^3/uL (134-434); RBC 3.61 M/mm3 (3.60-5.2); RDW 18.4 % (11.6-15.6); WHITE BLOOD COUNT 8.6 K/mm3 (4.0-10.0)
[2023-06-07 08:44] LABS: POTASSIUM 3.1 mmol/L (3.5-5.1)
[2023-06-07 08:46] LABS: CALCIUM 12.3 mg/dL (8.5-10.1)
[2023-06-07 08:47] LABS: BLOOD UREA NITROGEN 75.2 mg/dL (7-18); MAGNESIUM 2.7 mg/dL (1.8-2.4)
[2023-06-07 08:50] LABS: CREATININE 3.4 mg/dL (0.55-1.3)
[2023-06-07 08:52] LABS: BILIRUBIN,TOTAL 0.2 mg/dL (0.2-1); TOT PROT 5.8 g/dl (6.4-8.2)
[2023-06-07 09:10] LABS: ALBUMIN 1.4 g/dl (3.4-5.0)
[2023-06-07] MEDS ORDERED: POTASSIUM CHLORIDE ORAL LIQUID 20 MEQ/15 ML PO ONE (10:00)
[2023-06-07] MEDS: COLLAGENASE CLOSTRIDIUM HIST. 30 GRAMS TUBE TP SCH (10:54)
[2023-06-07] MEDS: BACITRACIN ZINC 15 GM TUBE TOPICAL OINTMENT TP SCH (10:54)
[2023-06-07] MEDS: HEPARIN NA (PORCINE) 5,000 UNITS/ML 1ML VIAL SQ SCH ×2 (10:55→22:50)
[2023-06-07] MEDS: amLODIPine BESYLATE 10 MG TABLET (FP) GT SCH (10:56)
[2023-06-07] MEDS: CHOLECALCIFEROL (VIT D3) 1,000 UNIT (25 MCG) TABLET GT SCH ×2 (10:56→22:50)
[2023-06-07] MEDS: SERTRALINE HCL 25 MG TABLET (FP) PO SCH (10:56)
[2023-06-07] MEDS: FERROUS SULFATE 220 MG/5 ML ELIXIR GT SCH ×2 (10:57→22:51)
[2023-06-07] MEDS: risperiDONE 1 MG TABLET GT SCH ×2 (10:57→22:50)
[2023-06-07] MEDS ORDERED: SODIUM CHLORIDE 1,000 ML IV SCH (11:15)
[2023-06-07] MEDS: KCL 10 MEQ IVPB 10 MEQ/100 ML INFUS.BAG IVPB SCH ×3 (12:13→14:30)
[2023-06-07] MEDS ORDERED: ACETAMINOPHEN 1000 MG/100 ML BAG IVPB ONE (12:55)
[2023-06-07] MEDS: INSULIN (LEVEMIR) 100 UNITS/ML UNITS SQ SCH (22:50)
[2023-06-08] MEDS: PIPERACILLIN/TAZOB 2.25 GM 2.25 GM in DEXTROSE 5%-WATER - 50 ML IVPB SCH ×3 (01:26→18:43)
[2023-06-08] MEDS: INSULIN ASPART SLIDING SCALE (NOVOLOG) 1 VIAL SQ SCH ×3 (06:38→16:55)
[2023-06-08] MEDS: INSULIN (LEVEMIR) 100 UNITS/ML UNITS SQ SCH ×2 (06:39→22:56)
[2023-06-08] MEDS: cloNIDine HCL 0.1 MG TABLET PEG SCH ×3 (06:42→22:52)
[2023-06-08] MEDS: ALBUTEROL SO4 0.083% IH SOL 2.5 MG/3 ML VIAL.NEB. NEB SCH ×4 (07:15→20:39)
[2023-06-08 09:26] LABS: HEMOGLOBIN 10.2 GM/dL (10.7-15.3); MEAN CELL VOLUME 79.5 fl (80-96); MEAN PLT VOLUME 7.4 fl (7.5-11.1); PLATELET COUNT 337 10^3/uL (134-434); RBC 3.78 M/mm3 (3.60-5.2); RDW 17.9 % (11.6-15.6); WHITE BLOOD COUNT 10.2 K/mm3 (4.0-10.0)
[2023-06-08 10:42] LABS: ALBUMIN 1.6 g/dl (3.4-5.0); BLOOD UREA NITROGEN 73.9 mg/dL (7-18); CALCIUM 13.4 mg/dL (8.5-10.1)
[2023-06-08 10:45] LABS: CREATININE 3.3 mg/dL (0.55-1.3)
[2023-06-08 10:47] LABS: BILIRUBIN,TOTAL 0.4 mg/dL (0.2-1); TOT PROT 6.7 g/dl (6.4-8.2)
[2023-06-08] MEDS: BACITRACIN ZINC 15 GM TUBE TOPICAL OINTMENT TP SCH (11:31)
[2023-06-08] MEDS: VALPROATE SODIUM 250 MG/5 ML UNIT DOSE CUP PEG SCH ×2 (11:31→22:52)
[2023-06-08] MEDS: MINERAL OIL/PET HY-PHL TOPICAL OINTMENT 454 GM JAR TP SCH ×2 (11:31→22:57)
[2023-06-08] MEDS: SERTRALINE HCL 25 MG TABLET (FP) PO SCH (11:32)
[2023-06-08] MEDS: HEPARIN NA (PORCINE) 5,000 UNITS/ML 1ML VIAL SQ SCH ×2 (11:32→22:53)
[2023-06-08] MEDS: risperiDONE 1 MG TABLET GT SCH ×2 (11:32→22:56)
[2023-06-08] MEDS: CHOLECALCIFEROL (VIT D3) 1,000 UNIT (25 MCG) TABLET GT SCH ×2 (11:32→22:56)
[2023-06-08] MEDS: amLODIPine BESYLATE 10 MG TABLET (FP) GT SCH (11:32)
[2023-06-08] MEDS: FERROUS SULFATE 220 MG/5 ML ELIXIR GT SCH ×2 (11:32→22:53)
[2023-06-08] MEDS: COLLAGENASE CLOSTRIDIUM HIST. 30 GRAMS TUBE TP SCH (11:32)
[2023-06-08 12:27] LABS: POTASSIUM 4.2 mmol/L (3.5-5.1)
[2023-06-08] MEDS ORDERED: SODIUM CHLORIDE 0.45% 1,000 ML IV SCH (17:30)
[2023-06-08] MEDS ORDERED: VALPROATE SODIUM 500 MG/5 ML VIAL IVPB SCH (23:15)
[2023-06-09] MEDS: PIPERACILLIN/TAZOB 2.25 GM 2.25 GM in DEXTROSE 5%-WATER - 50 ML IVPB SCH ×3 (01:28→17:14)
[2023-06-09] MEDS ORDERED: VALPROATE SODIUM 500 MG/5 ML VIAL IVPB SCH (03:00)
[2023-06-09] MEDS: VALPROATE SODIUM INJECTION 125 MG in SODIUM CHLORIDE 50 ML IVPB SCH ×3 (03:12→16:12)
[2023-06-09] MEDS: cloNIDine HCL 0.1 MG TABLET PEG SCH ×3 (06:39→22:53)
[2023-06-09] MEDS: INSULIN (LEVEMIR) 100 UNITS/ML UNITS SQ SCH ×2 (06:41→22:54)
[2023-06-09] MEDS: INSULIN ASPART SLIDING SCALE (NOVOLOG) 1 VIAL SQ SCH ×3 (06:41→16:40)
[2023-06-09] MEDS: ALBUTEROL SO4 0.083% IH SOL 2.5 MG/3 ML VIAL.NEB. NEB SCH ×4 (08:04→20:45)
[2023-06-09 08:19] LABS: HEMATOCRIT 31.1 % (32.4-45.2); HEMOGLOBIN 10.1 GM/dL (10.7-15.3); MCH 25.8 pg (25.7-33.7); MCHC 32.5 g/dl (32.0-36.0); MEAN CELL VOLUME 79.3 fl (80-96); MEAN PLT VOLUME 6.9 fl (7.5-11.1); PLATELET COUNT 379 10^3/uL (134-434); RBC 3.93 M/mm3 (3.60-5.2); WHITE BLOOD COUNT 13.3 K/mm3 (4.0-10.0)
[2023-06-09 08:35] LABS: POTASSIUM 3.8 mmol/L (3.5-5.1)
[2023-06-09 08:40] LABS: ALBUMIN 1.6 g/dl (3.4-5.0)
[2023-06-09 08:41] LABS: BLOOD UREA NITROGEN 67.7 mg/dL (7-18); CALCIUM 12.3 mg/dL (8.5-10.1); MAGNESIUM 2.4 mg/dL (1.8-2.4)
[2023-06-09 08:43] LABS: CREATININE 3.2 mg/dL (0.55-1.3); PHOSPHOROUS 5.4 mg/dL (2.5-4.9)
[2023-06-09 08:45] LABS: BILIRUBIN,TOTAL 0.3 mg/dL (0.2-1)
[2023-06-09] MEDS: BACITRACIN ZINC 15 GM TUBE TOPICAL OINTMENT TP SCH (10:37)
[2023-06-09] MEDS: MINERAL OIL/PET HY-PHL TOPICAL OINTMENT 454 GM JAR TP SCH ×2 (10:37→22:50)
[2023-06-09] MEDS: HEPARIN NA (PORCINE) 5,000 UNITS/ML 1ML VIAL SQ SCH ×2 (10:37→22:54)
[2023-06-09] MEDS: COLLAGENASE CLOSTRIDIUM HIST. 30 GRAMS TUBE TP SCH (10:37)
[2023-06-09] MEDS: amLODIPine BESYLATE 10 MG TABLET (FP) GT SCH (10:54)
[2023-06-09] MEDS: FERROUS SULFATE 220 MG/5 ML ELIXIR GT SCH ×2 (10:54→22:54)
[2023-06-09] MEDS: SERTRALINE HCL 25 MG TABLET (FP) PO SCH (10:54)
[2023-06-09] MEDS: CHOLECALCIFEROL (VIT D3) 1,000 UNIT (25 MCG) TABLET GT SCH ×2 (10:55→22:53)
[2023-06-09] MEDS: risperiDONE 1 MG TABLET GT SCH ×2 (10:56→22:55)
[2023-06-09] MEDS: ALPRAZolam 0.25 MG TABLET GT PRN (10:56)
[2023-06-09] MEDS ORDERED: ACETAMINOPHEN 1000 MG/100 ML BAG IVPB ONE (18:46)
[2023-06-09] MEDS ORDERED: PANTOPRAZOLE SODIUM 40 MG VIAL IVPUSH ONE (18:47)
[2023-06-10] MEDS: PIPERACILLIN/TAZOB 2.25 GM 2.25 GM in DEXTROSE 5%-WATER - 50 ML IVPB SCH ×3 (01:04→17:45)
[2023-06-10] MEDS: cloNIDine HCL 0.1 MG TABLET PEG SCH ×3 (06:56→21:48)
[2023-06-10] MEDS: INSULIN ASPART SLIDING SCALE (NOVOLOG) 1 VIAL SQ SCH ×3 (06:56→16:59)
[2023-06-10] MEDS: INSULIN (LEVEMIR) 100 UNITS/ML UNITS SQ SCH ×2 (06:57→22:25)
[2023-06-10 07:01] LABS: POTASSIUM 3.7 mmol/L (3.5-5.1)
[2023-06-10 07:03] LABS: CALCIUM 12.8 mg/dL (8.5-10.1)
[2023-06-10 07:04] LABS: ALBUMIN 1.6 g/dl (3.4-5.0)
[2023-06-10 07:07] LABS: CREATININE 3.3 mg/dL (0.55-1.3)
[2023-06-10 07:08] LABS: BILIRUBIN,TOTAL 0.2 mg/dL (0.2-1); TOT PROT 6.7 g/dl (6.4-8.2)
[2023-06-10 07:27] LABS: HEMOGLOBIN 9.7 GM/dL (10.7-15.3); MCH 26.1 pg (25.7-33.7); MCHC 32.5 g/dl (32.0-36.0); MEAN CELL VOLUME 80.4 fl (80-96); MEAN PLT VOLUME 6.9 fl (7.5-11.1); PLATELET COUNT 388 10^3/uL (134-434); RBC 3.73 M/mm3 (3.60-5.2); RDW 17.9 % (11.6-15.6); WHITE BLOOD COUNT 10.7 K/mm3 (4.0-10.0)
[2023-06-10] MEDS: ALBUTEROL SO4 0.083% IH SOL 2.5 MG/3 ML VIAL.NEB. NEB SCH ×4 (07:50→20:08)
[2023-06-10] MEDS: HEPARIN NA (PORCINE) 5,000 UNITS/ML 1ML VIAL SQ SCH ×2 (10:25→21:49)
[2023-06-10] MEDS: SERTRALINE HCL 25 MG TABLET (FP) PO SCH (10:26)
[2023-06-10] MEDS: MINERAL OIL/PET HY-PHL TOPICAL OINTMENT 454 GM JAR TP SCH ×2 (10:26→21:48)
[2023-06-10] MEDS: risperiDONE 1 MG TABLET GT SCH ×2 (10:26→22:18)
[2023-06-10] MEDS: CHOLECALCIFEROL (VIT D3) 1,000 UNIT (25 MCG) TABLET GT SCH ×2 (10:26→21:50)
[2023-06-10] MEDS: BACITRACIN ZINC 15 GM TUBE TOPICAL OINTMENT TP SCH (10:26)
[2023-06-10] MEDS: VITAMIN B COMP W-C 1 EA TABLET (NEPHRO-VITE) GT SCH (10:26)
[2023-06-10] MEDS: amLODIPine BESYLATE 10 MG TABLET (FP) GT SCH (10:26)
[2023-06-10] MEDS: COLLAGENASE CLOSTRIDIUM HIST. 30 GRAMS TUBE TP SCH (12:21)
[2023-06-10] MEDS: FERROUS SULFATE 220 MG/5 ML ELIXIR GT SCH ×2 (12:21→22:18)
[2023-06-10] MEDS: hydrALAZINE HCL 10 MG TABLET PO SCH ×2 (13:23→21:52)
[2023-06-10] MEDS: ACETAMINOPHEN 1000 MG/100 ML BAG IVPB PRN ×2 (13:23→19:19)
[2023-06-10] MEDS ORDERED: VANCOMYCIN/WATER FOR INJ (PEG) 750 MG/150 ML BAG IVPB ONE (14:00)
[2023-06-10] MEDS: SODIUM CHLORIDE 0.45% 1,000 ML IV SCH (19:57)
[2023-06-10] MEDS: VALPROATE SODIUM 250 MG/5 ML UNIT DOSE CUP PEG SCH (21:49)
[2023-06-11] MEDS: PIPERACILLIN/TAZOB 2.25 GM 2.25 GM in DEXTROSE 5%-WATER - 50 ML IVPB SCH ×3 (01:16→17:53)
[2023-06-11] MEDS: cloNIDine HCL 0.1 MG TABLET PEG SCH ×3 (05:23→22:06)
[2023-06-11] MEDS: hydrALAZINE HCL 10 MG TABLET PO SCH ×3 (05:23→22:06)
[2023-06-11] MEDS: ACETAMINOPHEN 1000 MG/100 ML BAG IVPB PRN (05:23)
[2023-06-11] MEDS: INSULIN (LEVEMIR) 100 UNITS/ML UNITS SQ SCH ×2 (06:13→22:15)
[2023-06-11] MEDS: INSULIN ASPART SLIDING SCALE (NOVOLOG) 1 VIAL SQ SCH ×3 (06:28→17:12)
[2023-06-11] MEDS: ALBUTEROL SO4 0.083% IH SOL 2.5 MG/3 ML VIAL.NEB. NEB SCH ×4 (07:15→20:15)
[2023-06-11 08:11] LABS: BASO % 0.5 % (0-2.0); EOS % 2.4 % (0-4.5); HEMATOCRIT 27.6 % (32.4-45.2); HEMOGLOBIN 9.1 GM/dL (10.7-15.3); LYMPH % 2.5 % (8-40); MCH 26.2 pg (25.7-33.7); MEAN CELL VOLUME 79.6 fl (80-96); MONO % 11.5 % (3.8-10.2); NEUT % 83.1 % (42.8-82.8); PLATELET COUNT 373 10^3/uL (134-434); RBC 3.46 M/mm3 (3.60-5.2); RDW 18.1 % (11.6-15.6); WHITE BLOOD COUNT 11.5 K/mm3 (4.0-10.0)
[2023-06-11 08:20] LABS: POTASSIUM 3.5 mmol/L (3.5-5.1)
[2023-06-11 08:27] LABS: ALBUMIN 1.5 g/dl (3.4-5.0); BLOOD UREA NITROGEN 72.3 mg/dL (7-18); MAGNESIUM 2.2 mg/dL (1.8-2.4)
[2023-06-11 08:29] LABS: CREATININE 3.3 mg/dL (0.55-1.3); PHOSPHOROUS 5.8 mg/dL (2.5-4.9)
[2023-06-11 08:31] LABS: BILIRUBIN,TOTAL 0.3 mg/dL (0.2-1); TOT PROT 6.2 g/dl (6.4-8.2)
[2023-06-11] MEDS: VALPROATE SODIUM 250 MG/5 ML UNIT DOSE CUP PEG SCH ×2 (09:20→22:06)
[2023-06-11] MEDS: amLODIPine BESYLATE 10 MG TABLET (FP) GT SCH (09:21)
[2023-06-11] MEDS: SERTRALINE HCL 25 MG TABLET (FP) PO SCH (09:21)
[2023-06-11] MEDS: risperiDONE 1 MG TABLET GT SCH ×2 (09:21→22:06)
[2023-06-11] MEDS: HEPARIN NA (PORCINE) 5,000 UNITS/ML 1ML VIAL SQ SCH (09:21)
[2023-06-11] MEDS: VITAMIN B COMP W-C 1 EA TABLET (NEPHRO-VITE) GT SCH (09:21)
[2023-06-11] MEDS: CHOLECALCIFEROL (VIT D3) 1,000 UNIT (25 MCG) TABLET GT SCH ×2 (09:21→22:06)
[2023-06-11] MEDS: FERROUS SULFATE 220 MG/5 ML ELIXIR GT SCH ×2 (09:22→22:06)
[2023-06-11] MEDS: MINERAL OIL/PET HY-PHL TOPICAL OINTMENT 454 GM JAR TP SCH ×2 (09:25→22:07)
[2023-06-11] MEDS: COLLAGENASE CLOSTRIDIUM HIST. 30 GRAMS TUBE TP SCH (11:50)
[2023-06-11] MEDS: BACITRACIN ZINC 15 GM TUBE TOPICAL OINTMENT TP SCH (11:51)
[2023-06-11] MEDS: SODIUM CHLORIDE 0.45% 1,000 ML IV SCH (20:38)
[2023-06-12] MEDS: PIPERACILLIN/TAZOB 2.25 GM 2.25 GM in DEXTROSE 5%-WATER - 50 ML IVPB SCH ×3 (01:28→17:31)
[2023-06-12] MEDS: cloNIDine HCL 0.1 MG TABLET PEG SCH ×3 (05:43→22:27)
[2023-06-12] MEDS: hydrALAZINE HCL 10 MG TABLET PO SCH ×3 (05:43→22:26)
[2023-06-12] MEDS: INSULIN ASPART SLIDING SCALE (NOVOLOG) 1 VIAL SQ SCH ×3 (07:26→16:56)
[2023-06-12] MEDS: INSULIN (LEVEMIR) 100 UNITS/ML UNITS SQ SCH ×2 (07:26→22:59)
[2023-06-12] MEDS: ALBUTEROL SO4 0.083% IH SOL 2.5 MG/3 ML VIAL.NEB. NEB SCH ×4 (07:40→20:00)
[2023-06-12 08:14] LABS: HEMATOCRIT 30.4 % (32.4-45.2); HEMOGLOBIN 9.8 GM/dL (10.7-15.3); MCH 25.9 pg (25.7-33.7); MCHC 32.3 g/dl (32.0-36.0); MEAN CELL VOLUME 80.2 fl (80-96); MEAN PLT VOLUME 6.9 fl (7.5-11.1); PLATELET COUNT 472 10^3/uL (134-434); RBC 3.79 M/mm3 (3.60-5.2); RDW 17.9 % (11.6-15.6)
[2023-06-12] MEDS ORDERED: morphine CARPU-JECT 2 MG/1 ML DISP.SYRIN IVPUSH ONE (08:17)
[2023-06-12 08:29] LABS: POTASSIUM 3.6 mmol/L (3.5-5.1)
[2023-06-12 08:35] LABS: ALBUMIN 1.8 g/dl (3.4-5.0); BLOOD UREA NITROGEN 66.6 mg/dL (7-18); CALCIUM 13.7 mg/dL (8.5-10.1); MAGNESIUM 2.2 mg/dL (1.8-2.4)
[2023-06-12 08:37] LABS: CREATININE 3.3 mg/dL (0.55-1.3)
[2023-06-12 08:38] LABS: PHOSPHOROUS 5.5 mg/dL (2.5-4.9)
[2023-06-12 08:39] LABS: BILIRUBIN,TOTAL 0.2 mg/dL (0.2-1); TOT PROT 7.3 g/dl (6.4-8.2)
[2023-06-12] MEDS ORDERED: FUROSEMIDE 40 MG/4 ML INJECTABLE VIAL IVPUSH ONE (08:45)
[2023-06-12] MEDS: MINERAL OIL/PET HY-PHL TOPICAL OINTMENT 454 GM JAR TP SCH ×2 (09:02→22:27)
[2023-06-12] MEDS: BACITRACIN ZINC 15 GM TUBE TOPICAL OINTMENT TP SCH (09:02)
[2023-06-12] MEDS: COLLAGENASE CLOSTRIDIUM HIST. 30 GRAMS TUBE TP SCH (09:02)
[2023-06-12] MEDS: FERROUS SULFATE 220 MG/5 ML ELIXIR GT SCH (09:03)
[2023-06-12] MEDS: amLODIPine BESYLATE 10 MG TABLET (FP) GT SCH (09:03)
[2023-06-12] MEDS: VITAMIN B COMP W-C 1 EA TABLET (NEPHRO-VITE) GT SCH (09:03)
[2023-06-12] MEDS: SERTRALINE HCL 25 MG TABLET (FP) PO SCH (09:03)
[2023-06-12] MEDS: VALPROATE SODIUM 250 MG/5 ML UNIT DOSE CUP PEG SCH ×2 (09:03→22:26)
[2023-06-12] MEDS: CHOLECALCIFEROL (VIT D3) 1,000 UNIT (25 MCG) TABLET GT SCH ×2 (09:04→22:26)
[2023-06-12] MEDS: risperiDONE 1 MG TABLET GT SCH ×2 (09:04→22:26)
[2023-06-12 09:07] LABS: ANISOCYTOSIS 2+
[2023-06-12 10:42] LABS: ARTERIAL BLD GAS O2 SATURATION 93.9 % (95-98); ARTERIAL BLOOD GAS BASE EXCESS -1.9 mmol/L (-2-2); ARTERIAL BLOOD GAS PO2 71.6 mmHg (80-100); ARTERIAL BLOOD GAS pH 7.361 (7.350-7.450)
[2023-06-12 10:43] LABS: ALLENS TEST POSITIVE
[2023-06-12] MEDS: CALCITONIN - SALMON SYNTHETIC 400 UNIT/2 ML VIAL IM SCH ×2 (12:10→22:28)
[2023-06-12] MEDS ORDERED: DENOSUMAB 120 MG/1.7 ML VIAL SQ ONE (13:00)
[2023-06-13] MEDS: PIPERACILLIN/TAZOB 2.25 GM 2.25 GM in DEXTROSE 5%-WATER - 50 ML IVPB SCH ×3 (01:48→17:14)
[2023-06-13] MEDS: hydrALAZINE HCL 10 MG TABLET PO SCH ×3 (05:45→22:07)
[2023-06-13] MEDS: cloNIDine HCL 0.1 MG TABLET PEG SCH ×3 (05:45→22:07)
[2023-06-13] MEDS: INSULIN ASPART SLIDING SCALE (NOVOLOG) 1 VIAL SQ SCH ×3 (06:04→18:11)
[2023-06-13] MEDS: INSULIN (LEVEMIR) 100 UNITS/ML UNITS SQ SCH ×2 (06:04→22:18)
[2023-06-13] MEDS: ALBUTEROL SO4 0.083% IH SOL 2.5 MG/3 ML VIAL.NEB. NEB SCH ×4 (07:45→22:07)
[2023-06-13 09:25] LABS: HEMATOCRIT 26.3 % (32.4-45.2); HEMOGLOBIN 8.6 GM/dL (10.7-15.3); MCHC 32.8 g/dl (32.0-36.0); MEAN CELL VOLUME 79.2 fl (80-96); MEAN PLT VOLUME 7.1 fl (7.5-11.1); PLATELET COUNT 405 10^3/uL (134-434); RBC 3.32 M/mm3 (3.60-5.2); RDW 18.4 % (11.6-15.6); WHITE BLOOD COUNT 10.9 K/mm3 (4.0-10.0)
[2023-06-13 09:46] LABS: POTASSIUM 4.1 mmol/L (3.5-5.1)
[2023-06-13 10:04] LABS: ALBUMIN 1.6 g/dl (3.4-5.0); BLOOD UREA NITROGEN 75.3 mg/dL (7-18); CALCIUM 13.1 mg/dL (8.5-10.1)
[2023-06-13 10:05] LABS: MAGNESIUM 2.3 mg/dL (1.8-2.4)
[2023-06-13 10:07] LABS: CREATININE 3.4 mg/dL (0.55-1.3); PHOSPHOROUS 5.9 mg/dL (2.5-4.9)
[2023-06-13 10:08] LABS: BILIRUBIN,TOTAL 0.3 mg/dL (0.2-1); TOT PROT 6.5 g/dl (6.4-8.2)
[2023-06-13] MEDS: risperiDONE 1 MG TABLET GT SCH ×2 (11:11→22:22)
[2023-06-13] MEDS: VALPROATE SODIUM 250 MG/5 ML UNIT DOSE CUP PEG SCH ×2 (11:12→22:07)
[2023-06-13] MEDS: VITAMIN B COMP W-C 1 EA TABLET (NEPHRO-VITE) GT SCH (11:12)
[2023-06-13] MEDS: SERTRALINE HCL 25 MG TABLET (FP) PO SCH (11:12)
[2023-06-13] MEDS: amLODIPine BESYLATE 10 MG TABLET (FP) GT SCH (11:12)
[2023-06-13] MEDS: CHOLECALCIFEROL (VIT D3) 1,000 UNIT (25 MCG) TABLET GT SCH (11:13)
[2023-06-13] MEDS: MINERAL OIL/PET HY-PHL TOPICAL OINTMENT 454 GM JAR TP SCH ×2 (11:13→22:07)
[2023-06-13] MEDS: COLLAGENASE CLOSTRIDIUM HIST. 30 GRAMS TUBE TP SCH (11:13)
[2023-06-13] MEDS: BACITRACIN ZINC 15 GM TUBE TOPICAL OINTMENT TP SCH (11:13)
[2023-06-13] MEDS ORDERED: FUROSEMIDE 40 MG/4 ML INJECTABLE VIAL IVPUSH ONE (16:03)
[2023-06-13] MEDS ORDERED: CALCITONIN - SALMON SYNTHETIC 400 UNIT/2 ML VIAL IM SCH (16:15)
[2023-06-13] MEDS ORDERED: SODIUM CHLORIDE 500 ML IV STA ×2 (16:44→19:26)
[2023-06-13] MEDS: predniSONE 20 MG TABLET (UD) PO SCH (17:14)
[2023-06-13] MEDS: CALCITONIN - SALMON SYNTHETIC 400 UNIT/2 ML VIAL IM SCH (18:14)
[2023-06-14] MEDS: PIPERACILLIN/TAZOB 2.25 GM 2.25 GM in DEXTROSE 5%-WATER - 50 ML IVPB SCH ×3 (02:16→17:37)
[2023-06-14] MEDS: hydrALAZINE HCL 10 MG TABLET PO SCH ×3 (05:29→22:22)
[2023-06-14] MEDS: cloNIDine HCL 0.1 MG TABLET PEG SCH ×3 (05:29→22:22)
[2023-06-14] MEDS: CALCITONIN - SALMON SYNTHETIC 400 UNIT/2 ML VIAL IM SCH (05:29)
[2023-06-14] MEDS: INSULIN ASPART SLIDING SCALE (NOVOLOG) 1 VIAL SQ SCH ×3 (06:56→17:35)
[2023-06-14] MEDS: INSULIN (LEVEMIR) 100 UNITS/ML UNITS SQ SCH ×2 (06:56→22:28)
[2023-06-14 08:16] LABS: HEMATOCRIT 27.7 % (32.4-45.2); HEMOGLOBIN 9.5 GM/dL (10.7-15.3); MCH 26.9 pg (25.7-33.7); MCHC 34.2 g/dl (32.0-36.0); MEAN CELL VOLUME 78.7 fl (80-96); MEAN PLT VOLUME 6.9 fl (7.5-11.1); PLATELET COUNT 466 10^3/uL (134-434); RBC 3.52 M/mm3 (3.60-5.2); WHITE BLOOD COUNT 11.9 K/mm3 (4.0-10.0)
[2023-06-14] MEDS: ALBUTEROL SO4 0.083% IH SOL 2.5 MG/3 ML VIAL.NEB. NEB SCH ×4 (08:30→20:26)
[2023-06-14 08:44] LABS: POTASSIUM 3.8 mmol/L (3.5-5.1)
[2023-06-14 08:46] LABS: CALCIUM 12.6 mg/dL (8.5-10.1)
[2023-06-14 08:47] LABS: ALBUMIN 1.7 g/dl (3.4-5.0); BLOOD UREA NITROGEN 76.7 mg/dL (7-18)
[2023-06-14 08:50] LABS: CREATININE 3.6 mg/dL (0.55-1.3)
[2023-06-14 08:52] LABS: BILIRUBIN,TOTAL 0.2 mg/dL (0.2-1); TOT PROT 7.1 g/dl (6.4-8.2)
[2023-06-14 09:36] LABS: ANISOCYTOSIS 1+; MACROCYTOSIS 0
[2023-06-14] MEDS: predniSONE 20 MG TABLET (UD) PO SCH (11:51)
[2023-06-14] MEDS: SERTRALINE HCL 25 MG TABLET (FP) PO SCH (11:51)
[2023-06-14] MEDS: amLODIPine BESYLATE 10 MG TABLET (FP) GT SCH (11:51)
[2023-06-14] MEDS: VITAMIN B COMP W-C 1 EA TABLET (NEPHRO-VITE) GT SCH (11:51)
[2023-06-14] MEDS: BACITRACIN ZINC 15 GM TUBE TOPICAL OINTMENT TP SCH (11:52)
[2023-06-14] MEDS: COLLAGENASE CLOSTRIDIUM HIST. 30 GRAMS TUBE TP SCH (11:52)
[2023-06-14] MEDS: MINERAL OIL/PET HY-PHL TOPICAL OINTMENT 454 GM JAR TP SCH ×2 (11:52→22:22)
[2023-06-14] MEDS: VALPROATE SODIUM 250 MG/5 ML UNIT DOSE CUP PEG SCH ×2 (14:51→22:21)
[2023-06-14] MEDS: risperiDONE 1 MG TABLET GT SCH ×2 (14:51→22:21)
[2023-06-15] MEDS: PIPERACILLIN/TAZOB 2.25 GM 2.25 GM in DEXTROSE 5%-WATER - 50 ML IVPB SCH ×3 (01:13→17:06)
[2023-06-15] MEDS: cloNIDine HCL 0.1 MG TABLET PEG SCH ×3 (05:40→21:48)
[2023-06-15] MEDS: hydrALAZINE HCL 10 MG TABLET PO SCH ×3 (05:40→21:48)
[2023-06-15] MEDS: INSULIN ASPART SLIDING SCALE (NOVOLOG) 1 VIAL SQ SCH ×3 (06:13→17:03)
[2023-06-15] MEDS: INSULIN (LEVEMIR) 100 UNITS/ML UNITS SQ SCH ×2 (06:14→21:46)
[2023-06-15] MEDS: ALBUTEROL SO4 0.083% IH SOL 2.5 MG/3 ML VIAL.NEB. NEB SCH ×4 (07:32→20:17)
[2023-06-15 08:26] LABS: BASO % 0.3 % (0-2.0); EOS % 0.1 % (0-4.5); HEMATOCRIT 27.7 % (32.4-45.2); HEMOGLOBIN 9.1 GM/dL (10.7-15.3); LYMPH % 3.7 % (8-40); MCH 26.4 pg (25.7-33.7); MCHC 32.8 g/dl (32.0-36.0); MEAN CELL VOLUME 80.6 fl (80-96); MONO % 9.9 % (3.8-10.2); PLATELET COUNT 507 10^3/uL (134-434); RBC 3.44 M/mm3 (3.60-5.2); RDW 17.7 % (11.6-15.6); WHITE BLOOD COUNT 11.3 K/mm3 (4.0-10.0)
[2023-06-15 08:34] LABS: POTASSIUM 3.4 mmol/L (3.5-5.1)
[2023-06-15 08:38] LABS: CALCIUM 12.6 mg/dL (8.5-10.1)
[2023-06-15 08:39] LABS: ALBUMIN 1.8 g/dl (3.4-5.0); BLOOD UREA NITROGEN 92.2 mg/dL (7-18)
[2023-06-15 08:42] LABS: CREATININE 3.6 mg/dL (0.55-1.3)
[2023-06-15 08:44] LABS: BILIRUBIN,TOTAL 0.2 mg/dL (0.2-1); TOT PROT 7.2 g/dl (6.4-8.2)
[2023-06-15] MEDS: predniSONE 20 MG TABLET (UD) PO SCH (11:05)
[2023-06-15] MEDS: SERTRALINE HCL 25 MG TABLET (FP) PO SCH (11:05)
[2023-06-15] MEDS: amLODIPine BESYLATE 10 MG TABLET (FP) GT SCH (11:05)
[2023-06-15] MEDS: VITAMIN B COMP W-C 1 EA TABLET (NEPHRO-VITE) GT SCH (11:05)
[2023-06-15] MEDS: VALPROATE SODIUM 250 MG/5 ML UNIT DOSE CUP PEG SCH ×2 (11:06→21:48)
[2023-06-15] MEDS: risperiDONE 1 MG TABLET GT SCH ×2 (11:06→21:48)
[2023-06-15] MEDS: BACITRACIN ZINC 15 GM TUBE TOPICAL OINTMENT TP SCH (11:07)
[2023-06-15] MEDS: MINERAL OIL/PET HY-PHL TOPICAL OINTMENT 454 GM JAR TP SCH ×2 (11:07→21:48)
[2023-06-15] MEDS: COLLAGENASE CLOSTRIDIUM HIST. 30 GRAMS TUBE TP SCH (11:07)
[2023-06-16] MEDS: PIPERACILLIN/TAZOB 2.25 GM 2.25 GM in DEXTROSE 5%-WATER - 50 ML IVPB SCH ×2 (02:26→10:30)
[2023-06-16] MEDS: cloNIDine HCL 0.1 MG TABLET PEG SCH ×3 (05:59→22:06)
[2023-06-16] MEDS: hydrALAZINE HCL 10 MG TABLET PO SCH ×3 (05:59→22:06)
[2023-06-16] MEDS: INSULIN ASPART SLIDING SCALE (NOVOLOG) 1 VIAL SQ SCH ×3 (06:00→18:06)
[2023-06-16] MEDS: INSULIN (LEVEMIR) 100 UNITS/ML UNITS SQ SCH ×2 (06:00→22:13)
[2023-06-16 09:46] LABS: HEMATOCRIT 26.4 % (32.4-45.2); HEMOGLOBIN 8.9 GM/dL (10.7-15.3); MCH 27.2 pg (25.7-33.7); MCHC 33.7 g/dl (32.0-36.0); MEAN CELL VOLUME 80.9 fl (80-96); MEAN PLT VOLUME 6.9 fl (7.5-11.1); PLATELET COUNT 505 10^3/uL (134-434); RBC 3.26 M/mm3 (3.60-5.2); RDW 18.1 % (11.6-15.6); WHITE BLOOD COUNT 10.7 K/mm3 (4.0-10.0)
[2023-06-16] MEDS: amLODIPine BESYLATE 10 MG TABLET (FP) GT SCH (10:32)
[2023-06-16] MEDS: COLLAGENASE CLOSTRIDIUM HIST. 30 GRAMS TUBE TP SCH (10:32)
[2023-06-16] MEDS: SERTRALINE HCL 25 MG TABLET (FP) PO SCH (10:32)
[2023-06-16] MEDS: predniSONE 20 MG TABLET (UD) PO SCH (10:32)
[2023-06-16] MEDS: BACITRACIN ZINC 15 GM TUBE TOPICAL OINTMENT TP SCH (10:32)
[2023-06-16] MEDS: VITAMIN B COMP W-C 1 EA TABLET (NEPHRO-VITE) GT SCH (10:32)
[2023-06-16] MEDS: MINERAL OIL/PET HY-PHL TOPICAL OINTMENT 454 GM JAR TP SCH ×2 (10:32→22:06)
[2023-06-16] MEDS: VALPROATE SODIUM 250 MG/5 ML UNIT DOSE CUP PEG SCH ×2 (10:34→22:07)
[2023-06-16] MEDS: risperiDONE 1 MG TABLET GT SCH ×2 (10:34→22:13)
[2023-06-16 10:38] LABS: ANISOCYTOSIS 3+; MACROCYTOSIS 0
[2023-06-16] MEDS ORDERED: INSULIN ASPART SLIDING SCALE (NOVOLOG) 1 VIAL SQ ONE (12:29)
[2023-06-16 16:45] LABS: CHLORIDE 110 mmol/L (98-107); SODIUM 144 mmol/L (136-145)
[2023-06-16 16:47] LABS: ANION GAP 9 mmol/L (4-13); CALCIUM 12.6 mg/dL (8.5-10.1); CO2 25 mmol/L (21-32)
[2023-06-16 16:48] LABS: GLUCOSE,RANDOM 216 mg/dL (74-106)
[2023-06-16 16:50] LABS: SGPT/ALT 16 U/L (13-61)
[2023-06-16 16:51] LABS: CREATININE 3.6 mg/dL (0.55-1.3); SGOT/AST 11 U/L (15-37)
[2023-06-16 16:52] LABS: BILIRUBIN,TOTAL 0.2 mg/dL (0.2-1); TOT PROT 7.3 g/dl (6.4-8.2)
[2023-06-16 16:54] LABS: ALK PHOS 165 U/L (45-117)
[2023-06-16 16:56] LABS: BLOOD UREA NITROGEN 104.8 mg/dL (7-18)
[2023-06-16] MEDS ORDERED: SODIUM CHLORIDE 500 ML IV STA (17:47)
[2023-06-16] MEDS ORDERED: FUROSEMIDE 40 MG/4 ML INJECTABLE VIAL IVPUSH ONE (18:30)
[2023-06-17] MEDS: cloNIDine HCL 0.1 MG TABLET PEG SCH ×3 (06:35→21:35)
[2023-06-17] MEDS: hydrALAZINE HCL 10 MG TABLET PO SCH ×3 (06:35→21:35)
[2023-06-17] MEDS: INSULIN (LEVEMIR) 100 UNITS/ML UNITS SQ SCH ×2 (06:36→21:50)
[2023-06-17] MEDS: INSULIN ASPART SLIDING SCALE (NOVOLOG) 1 VIAL SQ SCH ×3 (06:38→16:23)
[2023-06-17 08:27] LABS: HEMATOCRIT 28.1 % (32.4-45.2); HEMOGLOBIN 9.3 GM/dL (10.7-15.3); MCH 26.4 pg (25.7-33.7); MCHC 32.9 g/dl (32.0-36.0); MEAN CELL VOLUME 80.2 fl (80-96); MEAN PLT VOLUME 6.8 fl (7.5-11.1); PLATELET COUNT 501 10^3/uL (134-434); RBC 3.51 M/mm3 (3.60-5.2); RDW 18.3 % (11.6-15.6)
[2023-06-17 08:34] LABS: CHLORIDE 113 mmol/L (98-107); POTASSIUM 3.6 mmol/L (3.5-5.1); SODIUM 147 mmol/L (136-145)
[2023-06-17 08:36] LABS: ANION GAP 8 mmol/L (4-13); CALCIUM 12.2 mg/dL (8.5-10.1); CO2 26 mmol/L (21-32); GLUCOSE,RANDOM 196 mg/dL (74-106)
[2023-06-17 08:39] LABS: CREATININE 3.7 mg/dL (0.55-1.3); SGOT/AST 10 U/L (15-37)
[2023-06-17 08:40] LABS: SGPT/ALT 15 U/L (13-61)
[2023-06-17 08:41] LABS: BILIRUBIN,TOTAL 0.2 mg/dL (0.2-1); TOT PROT 7.1 g/dl (6.4-8.2)
[2023-06-17 08:42] LABS: ALK PHOS 137 U/L (45-117)
[2023-06-17 09:12] LABS: BLOOD UREA NITROGEN 116.2 mg/dL (7-18)
[2023-06-17 09:19] LABS: ANISOCYTOSIS 0; HELMET CELLS 0; HOWELL-JOLLY BODIES 0; MACROCYTOSIS 0; OVALOCYTE 0; ROULEAU 0; SICKELED CELLS 0; TARGET CELLS 0; TEAR DROP CELLS 0; TOXIC GRANULATION 0
[2023-06-17] MEDS: MINERAL OIL/PET HY-PHL TOPICAL OINTMENT 454 GM JAR TP SCH ×2 (11:03→21:37)
[2023-06-17] MEDS: BACITRACIN ZINC 15 GM TUBE TOPICAL OINTMENT TP SCH (11:03)
[2023-06-17] MEDS: COLLAGENASE CLOSTRIDIUM HIST. 30 GRAMS TUBE TP SCH (11:03)
[2023-06-17] MEDS: SERTRALINE HCL 25 MG TABLET (FP) PO SCH (11:07)
[2023-06-17] MEDS: amLODIPine BESYLATE 10 MG TABLET (FP) GT SCH (11:07)
[2023-06-17] MEDS: predniSONE 20 MG TABLET (UD) PO SCH (11:07)
[2023-06-17] MEDS: VITAMIN B COMP W-C 1 EA TABLET (NEPHRO-VITE) GT SCH (11:08)
[2023-06-17] MEDS: risperiDONE 1 MG TABLET GT SCH ×2 (11:08→21:35)
[2023-06-17] MEDS: VALPROATE SODIUM 250 MG/5 ML UNIT DOSE CUP PEG SCH ×2 (11:09→21:34)
[2023-06-17] MEDS: SODIUM CHLORIDE 0.45% 1,000 ML IV SCH (17:08)
[2023-06-17 18:50] LABS: IRON SERUM 41 ug/dL (50-175); TOTAL IRON BINDING CAPACITY 206 ug/dL (250-450)
[2023-06-17 19:04] LABS: RETICULOCYTES 1.09 % (0.5-1.5)
[2023-06-17 19:29] LABS: EPI CELLS >36 /uL (0-25.1); HYALINE CASTS 718 /uL (0-3.1); PH,URINE 5.5 (5.0-8.0); URINE APPEARANCE TURBID; URINE BACTERIA 420 /uL (0-1359); URINE BILIRUBIN NEGATIVE (NEGATIVE); URINE COLOR YELLOW; URINE GLUCOSE (UA) TRACE (NEGATIVE); URINE KETONE NEGATIVE (NEGATIVE); URINE LEUK ESTERASE 3+ (NEGATIVE); URINE NITRITE NEGATIVE (NEGATIVE); URINE PROTEIN 3+ (NEGATIVE); URINE UROBILINOGEN 0.2 mg/dL (0.2-1.0); URINE WBC 29759 /uL (0-25.8)
[2023-06-17 20:37] LABS: ARTERIAL BLD GAS O2 SATURATION 95.5 % (95-98); ARTERIAL BLOOD GAS BASE EXCESS -1.1 mmol/L (-2-2); ARTERIAL BLOOD GAS PO2 82.1 mmHg (80-100); ARTERIAL BLOOD GAS pH 7.347 (7.350-7.450)
[2023-06-17 21:06] LABS: URINE RBC 810.9 /uL (0-23.9); YEAST PRESENT (NEGATIVE)
[2023-06-18] MEDS: cloNIDine HCL 0.1 MG TABLET PEG SCH ×3 (05:45→22:04)
[2023-06-18] MEDS: hydrALAZINE HCL 10 MG TABLET PO SCH ×3 (05:45→22:04)
[2023-06-18] MEDS: INSULIN ASPART SLIDING SCALE (NOVOLOG) 1 VIAL SQ SCH ×3 (07:00→17:23)
[2023-06-18] MEDS: INSULIN (LEVEMIR) 100 UNITS/ML UNITS SQ SCH ×2 (07:01→22:05)
[2023-06-18 08:17] LABS: HEMATOCRIT 28.6 % (32.4-45.2); HEMOGLOBIN 9.7 GM/dL (10.7-15.3); MCH 26.8 pg (25.7-33.7); MCHC 33.9 g/dl (32.0-36.0); MEAN CELL VOLUME 78.9 fl (80-96); MEAN PLT VOLUME 7.3 fl (7.5-11.1); PLATELET COUNT 439 10^3/uL (134-434); RBC 3.63 M/mm3 (3.60-5.2); RDW 18.9 % (11.6-15.6); WHITE BLOOD COUNT 16.1 K/mm3 (4.0-10.0)
[2023-06-18 08:24] LABS: CHLORIDE 115 mmol/L (98-107); POTASSIUM 3.4 mmol/L (3.5-5.1); SODIUM 147 mmol/L (136-145)
[2023-06-18 08:29] LABS: ALBUMIN 1.7 g/dl (3.4-5.0); ANION GAP 8 mmol/L (4-13); CO2 24 mmol/L (21-32); GLUCOSE,RANDOM 246 mg/dL (74-106); MAGNESIUM 2.3 mg/dL (1.8-2.4)
[2023-06-18 08:32] LABS: CREATININE 3.4 mg/dL (0.55-1.3); PHOSPHOROUS 5.6 mg/dL (2.5-4.9); SGOT/AST 8 U/L (15-37); SGPT/ALT 14 U/L (13-61)
[2023-06-18 08:34] LABS: ALK PHOS 131 U/L (45-117); BILIRUBIN,TOTAL 0.2 mg/dL (0.2-1); TOT PROT 6.2 g/dl (6.4-8.2)
[2023-06-18 08:53] LABS: BLOOD UREA NITROGEN 136.9 mg/dL (7-18)
[2023-06-18] MEDS ORDERED: predniSONE 20 MG TABLET (UD) PO SCH (10:00)
[2023-06-18] MEDS: VALPROATE SODIUM 250 MG/5 ML UNIT DOSE CUP PEG SCH ×2 (10:38→22:04)
[2023-06-18] MEDS: BACITRACIN ZINC 15 GM TUBE TOPICAL OINTMENT TP SCH (10:38)
[2023-06-18] MEDS: VITAMIN B COMP W-C 1 EA TABLET (NEPHRO-VITE) GT SCH (10:39)
[2023-06-18] MEDS: amLODIPine BESYLATE 10 MG TABLET (FP) GT SCH (10:39)
[2023-06-18] MEDS: SERTRALINE HCL 25 MG TABLET (FP) PO SCH (10:40)
[2023-06-18] MEDS: risperiDONE 1 MG TABLET GT SCH ×2 (10:40→22:04)
[2023-06-18] MEDS: MINERAL OIL/PET HY-PHL TOPICAL OINTMENT 454 GM JAR TP SCH ×2 (10:41→22:05)
[2023-06-18] MEDS ORDERED: VANCOMYCIN/WATER FOR INJ (PEG) 1,000 MG/200 ML BAG IVPB ONE (13:00)
[2023-06-18] MEDS: MEROPENEM 500 MG in DEXTROSE 5%-WATER 100 ML IVPB SCH ×2 (13:08→22:05)
[2023-06-18] MEDS: COLLAGENASE CLOSTRIDIUM HIST. 30 GRAMS TUBE TP SCH (15:24)
[2023-06-18] MEDS: NYSTATIN POWDER 100,000 UNITS/GM - 15 GM TOPICAL POWDER TP SCH ×2 (15:24→22:05)
[2023-06-18] MEDS: SODIUM CHLORIDE 0.45% 1,000 ML IV SCH (17:27)
[2023-06-18 22:32] LABS: VENOUS BASE EXCESS -3.1 mmol/L (-2-2); VENOUS PCO2 41.4 mmHg (38-52); VENOUS PH 7.348 (7.310-7.410)
[2023-06-19] MEDS: cloNIDine HCL 0.1 MG TABLET PEG SCH ×3 (06:14→22:04)
[2023-06-19] MEDS: hydrALAZINE HCL 10 MG TABLET PO SCH ×3 (06:14→22:04)
[2023-06-19] MEDS: INSULIN (LEVEMIR) 100 UNITS/ML UNITS SQ SCH ×2 (06:15→22:04)
[2023-06-19] MEDS: INSULIN ASPART SLIDING SCALE (NOVOLOG) 1 VIAL SQ SCH ×3 (06:25→17:35)
[2023-06-19 09:00] LABS: HEMATOCRIT 25.2 % (32.4-45.2); HEMOGLOBIN 8.2 GM/dL (10.7-15.3); MCH 26.7 pg (25.7-33.7); MCHC 32.8 g/dl (32.0-36.0); MEAN CELL VOLUME 81.4 fl (80-96); MEAN PLT VOLUME 7.4 fl (7.5-11.1); PLATELET COUNT 347 10^3/uL (134-434); RBC 3.09 M/mm3 (3.60-5.2); RDW 18.7 % (11.6-15.6); WHITE BLOOD COUNT 14.2 K/mm3 (4.0-10.0)
[2023-06-19 09:12] LABS: CHLORIDE 114 mmol/L (98-107); POTASSIUM 3.4 mmol/L (3.5-5.1); SODIUM 146 mmol/L (136-145)
[2023-06-19 09:15] LABS: CALCIUM 10.3 mg/dL (8.5-10.1)
[2023-06-19 09:16] LABS: ALBUMIN 1.6 g/dl (3.4-5.0); ANION GAP 8 mmol/L (4-13); CO2 23 mmol/L (21-32); GLUCOSE,RANDOM 194 mg/dL (74-106)
[2023-06-19 09:19] LABS: CREATININE 3.2 mg/dL (0.55-1.3); SGOT/AST 10 U/L (15-37); SGPT/ALT 14 U/L (13-61)
[2023-06-19 09:20] LABS: TOT PROT 5.6 g/dl (6.4-8.2)
[2023-06-19 09:21] LABS: BILIRUBIN,TOTAL 0.2 mg/dL (0.2-1)
[2023-06-19 09:22] LABS: ALK PHOS 124 U/L (45-117)
[2023-06-19 09:23] LABS: BLOOD UREA NITROGEN 136.8 mg/dL (7-18)
[2023-06-19 09:41] LABS: ANISOCYTOSIS 3+; MACROCYTOSIS 0; TARGET CELLS 1+
[2023-06-19] MEDS: amLODIPine BESYLATE 10 MG TABLET (FP) GT SCH (10:08)
[2023-06-19] MEDS: predniSONE 10 MG TABLET (UD) PO SCH (10:08)
[2023-06-19] MEDS: VALPROATE SODIUM 250 MG/5 ML UNIT DOSE CUP PEG SCH ×2 (10:08→22:04)
[2023-06-19] MEDS: SERTRALINE HCL 25 MG TABLET (FP) PO SCH (10:08)
[2023-06-19] MEDS: VITAMIN B COMP W-C 1 EA TABLET (NEPHRO-VITE) GT SCH (10:08)
[2023-06-19] MEDS: risperiDONE 1 MG TABLET GT SCH ×2 (10:09→22:04)
[2023-06-19] MEDS: MEROPENEM 500 MG in DEXTROSE 5%-WATER 100 ML IVPB SCH ×2 (12:07→22:03)
[2023-06-19] MEDS: COLLAGENASE CLOSTRIDIUM HIST. 30 GRAMS TUBE TP SCH (12:09)
[2023-06-19] MEDS: NYSTATIN POWDER 100,000 UNITS/GM - 15 GM TOPICAL POWDER TP SCH ×2 (12:10→23:14)
[2023-06-19] MEDS: BACITRACIN ZINC 15 GM TUBE TOPICAL OINTMENT TP SCH (12:10)
[2023-06-19] MEDS: MINERAL OIL/PET HY-PHL TOPICAL OINTMENT 454 GM JAR TP SCH ×2 (12:11→22:04)
[2023-06-19] MEDS: SODIUM CHLORIDE 0.45% 1,000 ML IV SCH (18:10)
[2023-06-20] MEDS: INSULIN (LEVEMIR) 100 UNITS/ML UNITS SQ SCH ×2 (06:11→22:44)
[2023-06-20] MEDS: cloNIDine HCL 0.1 MG TABLET PEG SCH ×3 (06:12→22:37)
[2023-06-20] MEDS: INSULIN ASPART SLIDING SCALE (NOVOLOG) 1 VIAL SQ SCH ×3 (06:12→17:01)
[2023-06-20] MEDS: hydrALAZINE HCL 10 MG TABLET PO SCH ×3 (06:12→22:37)
[2023-06-20 07:23] LABS: HEMATOCRIT 26.6 % (32.4-45.2); HEMOGLOBIN 8.6 GM/dL (10.7-15.3); MCHC 32.3 g/dl (32.0-36.0); MEAN CELL VOLUME 80.4 fl (80-96); MEAN PLT VOLUME 7.5 fl (7.5-11.1); PLATELET COUNT 356 10^3/uL (134-434); RBC 3.31 M/mm3 (3.60-5.2); RDW 19.1 % (11.6-15.6); WHITE BLOOD COUNT 12.2 K/mm3 (4.0-10.0)
[2023-06-20 07:41] LABS: CHLORIDE 112 mmol/L (98-107); POTASSIUM 3.5 mmol/L (3.5-5.1); SODIUM 145 mmol/L (136-145)
[2023-06-20 07:43] LABS: CALCIUM 10.2 mg/dL (8.5-10.1)
[2023-06-20 07:44] LABS: ALBUMIN 1.7 g/dl (3.4-5.0); ANION GAP 9 mmol/L (4-13); CO2 23 mmol/L (21-32); GLUCOSE,RANDOM 177 mg/dL (74-106); MAGNESIUM 2.5 mg/dL (1.8-2.4)
[2023-06-20 07:46] LABS: SGPT/ALT 16 U/L (13-61)
[2023-06-20 07:47] LABS: CREATININE 3.1 mg/dL (0.55-1.3); SGOT/AST 15 U/L (15-37)
[2023-06-20 07:48] LABS: BILIRUBIN,TOTAL 0.1 mg/dL (0.2-1); TOT PROT 5.8 g/dl (6.4-8.2)
[2023-06-20 07:49] LABS: ALK PHOS 138 U/L (45-117)
[2023-06-20 08:18] LABS: BLOOD UREA NITROGEN 137.8 mg/dL (7-18)
[2023-06-20 08:51] LABS: ANISOCYTOSIS 3+; MACROCYTOSIS 0
[2023-06-20] MEDS: MEROPENEM 500 MG in DEXTROSE 5%-WATER 100 ML IVPB SCH ×2 (09:00→22:38)
[2023-06-20] MEDS: amLODIPine BESYLATE 10 MG TABLET (FP) GT SCH (09:01)
[2023-06-20] MEDS: VITAMIN B COMP W-C 1 EA TABLET (NEPHRO-VITE) GT SCH (09:02)
[2023-06-20] MEDS: SERTRALINE HCL 25 MG TABLET (FP) PO SCH (09:02)
[2023-06-20] MEDS: predniSONE 10 MG TABLET (UD) PO SCH (09:02)
[2023-06-20] MEDS: risperiDONE 1 MG TABLET GT SCH ×2 (09:02→22:40)
[2023-06-20] MEDS: VALPROATE SODIUM 250 MG/5 ML UNIT DOSE CUP PEG SCH ×2 (09:03→22:40)
[2023-06-20] MEDS: NYSTATIN POWDER 100,000 UNITS/GM - 15 GM TOPICAL POWDER TP SCH ×2 (09:11→22:40)
[2023-06-20] MEDS: COLLAGENASE CLOSTRIDIUM HIST. 30 GRAMS TUBE TP SCH (09:11)
[2023-06-20] MEDS: BACITRACIN ZINC 15 GM TUBE TOPICAL OINTMENT TP SCH (09:11)
[2023-06-20] MEDS: MINERAL OIL/PET HY-PHL TOPICAL OINTMENT 454 GM JAR TP SCH ×2 (11:06→22:38)
[2023-06-20] MEDS ORDERED: ACETAMINOPHEN 1000 MG/100 ML BAG IVPB ONE (13:48)
[2023-06-20] MEDS: SODIUM CHLORIDE 0.45% 1,000 ML IV SCH (17:01)
[2023-06-21] MEDS ORDERED: predniSONE 10 MG TABLET (UD) PEG SCH (04:21)
[2023-06-21] MEDS: cloNIDine HCL 0.1 MG TABLET PEG SCH ×3 (06:01→23:40)
[2023-06-21] MEDS: hydrALAZINE HCL 10 MG TABLET PEG SCH ×3 (06:01→23:39)
[2023-06-21] MEDS: INSULIN (LEVEMIR) 100 UNITS/ML UNITS SQ SCH ×2 (06:02→23:41)
[2023-06-21] MEDS: INSULIN ASPART SLIDING SCALE (NOVOLOG) 1 VIAL SQ SCH ×3 (06:02→17:06)
[2023-06-21] MEDS: SODIUM CHLORIDE 0.45% 1,000 ML IV SCH ×2 (06:38→16:04)
[2023-06-21] MEDS ORDERED: INSULIN (LEVEMIR) 100 UNITS/ML UNITS SQ ONE (06:45)
[2023-06-21] MEDS ORDERED: INSULIN ASPART SLIDING SCALE (NOVOLOG) 1 VIAL SQ ONE (06:45)
[2023-06-21 08:17] LABS: HEMATOCRIT 23.9 % (32.4-45.2); HEMOGLOBIN 7.9 GM/dL (10.7-15.3); MCH 26.4 pg (25.7-33.7); MCHC 32.9 g/dl (32.0-36.0); MEAN CELL VOLUME 80.3 fl (80-96); PLATELET COUNT 318 10^3/uL (134-434); RBC 2.98 M/mm3 (3.60-5.2); RDW 18.9 % (11.6-15.6); WHITE BLOOD COUNT 9.9 K/mm3 (4.0-10.0)
[2023-06-21 08:32] LABS: CHLORIDE 110 mmol/L (98-107); POTASSIUM 3.8 mmol/L (3.5-5.1); SODIUM 142 mmol/L (136-145)
[2023-06-21 08:34] LABS: ANION GAP 11 mmol/L (4-13); CALCIUM 9.6 mg/dL (8.5-10.1); CO2 22 mmol/L (21-32); GLUCOSE,RANDOM 161 mg/dL (74-106); MAGNESIUM 2.5 mg/dL (1.8-2.4)
[2023-06-21 08:35] LABS: ALBUMIN 1.5 g/dl (3.4-5.0)
[2023-06-21 08:37] LABS: CREATININE 2.9 mg/dL (0.55-1.3); PHOSPHOROUS 5.8 mg/dL (2.5-4.9); SGOT/AST 15 U/L (15-37); SGPT/ALT 19 U/L (13-61)
[2023-06-21 08:39] LABS: BILIRUBIN,TOTAL 0.2 mg/dL (0.2-1); TOT PROT 5.4 g/dl (6.4-8.2)
[2023-06-21 08:40] LABS: ALK PHOS 131 U/L (45-117)
[2023-06-21 08:42] LABS: BLOOD UREA NITROGEN 130.5 mg/dL (7-18)
[2023-06-21] MEDS ORDERED: predniSONE 5 MG TABLET (UD) PEG ONE (10:00)
[2023-06-21] MEDS: MEROPENEM 500 MG in DEXTROSE 5%-WATER 100 ML IVPB SCH ×2 (11:01→23:38)
[2023-06-21] MEDS: VALPROATE SODIUM 250 MG/5 ML UNIT DOSE CUP PEG SCH ×2 (11:02→23:40)
[2023-06-21] MEDS: BACITRACIN ZINC 15 GM TUBE TOPICAL OINTMENT TP SCH (11:02)
[2023-06-21] MEDS: risperiDONE 1 MG TABLET PEG SCH ×2 (11:03→23:40)
[2023-06-21] MEDS: MINERAL OIL/PET HY-PHL TOPICAL OINTMENT 454 GM JAR TP SCH ×2 (11:03→23:41)
[2023-06-21] MEDS: amLODIPine BESYLATE 10 MG TABLET (FP) GT SCH (11:03)
[2023-06-21] MEDS: SERTRALINE HCL 25 MG TABLET (FP) NR SCH (11:03)
[2023-06-21] MEDS: VITAMIN B COMP W-C 1 EA TABLET (NEPHRO-VITE) PEG SCH (11:03)
[2023-06-21] MEDS: NYSTATIN POWDER 100,000 UNITS/GM - 15 GM TOPICAL POWDER TP SCH ×2 (11:05→23:40)
[2023-06-21] MEDS: COLLAGENASE CLOSTRIDIUM HIST. 30 GRAMS TUBE TP SCH (11:05)
[2023-06-21] MEDS ORDERED: ACETAMINOPHEN 1000 MG/100 ML BAG IVPB ONE (15:07)
[2023-06-22] MEDS: hydrALAZINE HCL 10 MG TABLET PEG SCH ×3 (05:56→22:17)
[2023-06-22] MEDS: cloNIDine HCL 0.1 MG TABLET PEG SCH ×3 (05:56→22:17)
[2023-06-22] MEDS: INSULIN ASPART SLIDING SCALE (NOVOLOG) 1 VIAL SQ SCH ×3 (06:05→17:15)
[2023-06-22] MEDS: INSULIN (LEVEMIR) 100 UNITS/ML UNITS SQ SCH ×2 (06:05→22:23)
[2023-06-22 06:46] LABS: HEMATOCRIT 26.7 % (32.4-45.2); HEMOGLOBIN 8.7 GM/dL (10.7-15.3); MCH 26.1 pg (25.7-33.7); MCHC 32.5 g/dl (32.0-36.0); MEAN CELL VOLUME 80.3 fl (80-96); MEAN PLT VOLUME 7.8 fl (7.5-11.1); PLATELET COUNT 324 10^3/uL (134-434); RBC 3.32 M/mm3 (3.60-5.2); RDW 19.2 % (11.6-15.6); WHITE BLOOD COUNT 9.9 K/mm3 (4.0-10.0)
[2023-06-22 07:36] LABS: CHLORIDE 108 mmol/L (98-107); POTASSIUM 3.8 mmol/L (3.5-5.1); SODIUM 138 mmol/L (136-145)
[2023-06-22 07:53] LABS: CALCIUM 10.1 mg/dL (8.5-10.1)
[2023-06-22 07:54] LABS: ALBUMIN 1.7 g/dl (3.4-5.0); ANION GAP 11 mmol/L (4-13); CO2 20 mmol/L (21-32); GLUCOSE,RANDOM 192 mg/dL (74-106)
[2023-06-22 07:57] LABS: SGOT/AST 19 U/L (15-37); SGPT/ALT 23 U/L (13-61)
[2023-06-22 07:59] LABS: BILIRUBIN,TOTAL 0.3 mg/dL (0.2-1)
[2023-06-22 08:00] LABS: ALK PHOS 166 U/L (45-117); BLOOD UREA NITROGEN 129.9 mg/dL (7-18)
[2023-06-22] MEDS: MINERAL OIL/PET HY-PHL TOPICAL OINTMENT 454 GM JAR TP SCH ×2 (11:29→22:19)
[2023-06-22] MEDS: COLLAGENASE CLOSTRIDIUM HIST. 30 GRAMS TUBE TP SCH (11:30)
[2023-06-22] MEDS: NYSTATIN POWDER 100,000 UNITS/GM - 15 GM TOPICAL POWDER TP SCH ×2 (11:30→22:20)
[2023-06-22] MEDS: BACITRACIN ZINC 15 GM TUBE TOPICAL OINTMENT TP SCH (11:31)
[2023-06-22] MEDS: MEROPENEM 500 MG in DEXTROSE 5%-WATER 100 ML IVPB SCH ×2 (11:31→22:16)
[2023-06-22] MEDS: SERTRALINE HCL 25 MG TABLET (FP) NR SCH (11:42)
[2023-06-22] MEDS: amLODIPine BESYLATE 10 MG TABLET (FP) GT SCH (11:53)
[2023-06-22] MEDS: VITAMIN B COMP W-C 1 EA TABLET (NEPHRO-VITE) PEG SCH (11:55)
[2023-06-22] MEDS: VALPROATE SODIUM 250 MG/5 ML UNIT DOSE CUP PEG SCH ×2 (11:55→22:19)
[2023-06-22] MEDS: risperiDONE 1 MG TABLET PEG SCH ×2 (11:57→22:18)
[2023-06-22] MEDS ORDERED: ACETAMINOPHEN 1000 MG/100 ML BAG IVPB ONE (16:34)
[2023-06-22] MEDS: SODIUM CHLORIDE 0.45% 1,000 ML IV SCH ×2 (17:18→22:28)
[2023-06-23] MEDS: hydrALAZINE HCL 10 MG TABLET PEG SCH ×3 (06:03→22:29)
[2023-06-23] MEDS: cloNIDine HCL 0.1 MG TABLET PEG SCH ×3 (06:03→22:29)
[2023-06-23] MEDS: INSULIN ASPART SLIDING SCALE (NOVOLOG) 1 VIAL SQ SCH ×3 (06:07→17:30)
[2023-06-23] MEDS: INSULIN (LEVEMIR) 100 UNITS/ML UNITS SQ SCH ×2 (06:08→22:34)
[2023-06-23] MEDS ORDERED: INSULIN (LEVEMIR) 100 UNITS/ML UNITS SQ ONE ×2 (06:59→07:00)
[2023-06-23] MEDS ORDERED: INSULIN ASPART SLIDING SCALE (NOVOLOG) 1 VIAL SQ ONE ×2 (06:59→07:00)
[2023-06-23 07:42] LABS: HEMATOCRIT 23.9 % (32.4-45.2); HEMOGLOBIN 7.9 GM/dL (10.7-15.3); MCH 26.4 pg (25.7-33.7); MCHC 33.2 g/dl (32.0-36.0); MEAN CELL VOLUME 79.6 fl (80-96); MEAN PLT VOLUME 8.1 fl (7.5-11.1); PLATELET COUNT 261 10^3/uL (134-434); RDW 18.9 % (11.6-15.6); WHITE BLOOD COUNT 8.6 K/mm3 (4.0-10.0)
[2023-06-23 07:59] LABS: CHLORIDE 106 mmol/L (98-107); POTASSIUM 3.7 mmol/L (3.5-5.1); SODIUM 135 mmol/L (136-145)
[2023-06-23 08:02] LABS: ANION GAP 9 mmol/L (4-13); CALCIUM 9.1 mg/dL (8.5-10.1); CO2 21 mmol/L (21-32)
[2023-06-23 08:03] LABS: GLUCOSE,RANDOM 176 mg/dL (74-106)
[2023-06-23 08:05] LABS: ALBUMIN 1.5 g/dl (3.4-5.0)
[2023-06-23 08:06] LABS: CREATININE 2.8 mg/dL (0.55-1.3)
[2023-06-23 08:08] LABS: BILIRUBIN,DIRECT 0.1 mg/dL (0.0-0.2)
[2023-06-23 08:09] LABS: BLOOD UREA NITROGEN 125.9 mg/dL (7-18)
[2023-06-23 08:10] LABS: BILIRUBIN,TOTAL 0.4 mg/dL (0.2-1); TOT PROT 5.4 g/dl (6.4-8.2)
[2023-06-23] MEDS: MEROPENEM 500 MG in DEXTROSE 5%-WATER 100 ML IVPB SCH ×2 (10:49→22:22)
[2023-06-23] MEDS: risperiDONE 1 MG TABLET PEG SCH ×2 (10:49→22:29)
[2023-06-23] MEDS: VITAMIN B COMP W-C 1 EA TABLET (NEPHRO-VITE) PEG SCH (10:49)
[2023-06-23] MEDS: VALPROATE SODIUM 250 MG/5 ML UNIT DOSE CUP PEG SCH ×2 (10:49→22:29)
[2023-06-23] MEDS: MINERAL OIL/PET HY-PHL TOPICAL OINTMENT 454 GM JAR TP SCH ×2 (11:10→22:40)
[2023-06-23] MEDS: SERTRALINE HCL 25 MG TABLET (FP) NR SCH (11:10)
[2023-06-23] MEDS: amLODIPine BESYLATE 10 MG TABLET (FP) GT SCH (11:10)
[2023-06-23] MEDS: BACITRACIN ZINC 15 GM TUBE TOPICAL OINTMENT TP SCH (11:12)
[2023-06-23] MEDS ORDERED: FUROSEMIDE 40 MG/5 ML UNIT-DOSE CUP PO ONE (11:15)
[2023-06-23] MEDS: NYSTATIN POWDER 100,000 UNITS/GM - 15 GM TOPICAL POWDER TP SCH ×2 (11:16→22:37)
[2023-06-23] MEDS: COLLAGENASE CLOSTRIDIUM HIST. 30 GRAMS TUBE TP SCH (11:16)
[2023-06-24] MEDS: INSULIN ASPART SLIDING SCALE (NOVOLOG) 1 VIAL SQ SCH ×3 (06:06→17:37)
[2023-06-24] MEDS: cloNIDine HCL 0.1 MG TABLET PEG SCH ×3 (06:11→22:12)
[2023-06-24] MEDS: INSULIN (LEVEMIR) 100 UNITS/ML UNITS SQ SCH ×2 (06:11→22:14)
[2023-06-24] MEDS: hydrALAZINE HCL 10 MG TABLET PEG SCH ×3 (06:11→22:12)
[2023-06-24 08:23] LABS: HEMATOCRIT 22.8 % (32.4-45.2); HEMOGLOBIN 7.7 GM/dL (10.7-15.3); MCH 26.3 pg (25.7-33.7); MCHC 33.7 g/dl (32.0-36.0); RBC 2.93 M/mm3 (3.60-5.2); RDW 18.8 % (11.6-15.6)
[2023-06-24 08:25] LABS: WHITE BLOOD COUNT 10.2 K/mm3 (4.0-10.0)
[2023-06-24 08:26] LABS: MEAN PLT VOLUME 8.5 fl (7.5-11.1); PLATELET COUNT 296 10^3/uL (134-434)
[2023-06-24 08:36] LABS: CHLORIDE 105 mmol/L (98-107); POTASSIUM 4.1 mmol/L (3.5-5.1); SODIUM 135 mmol/L (136-145)
[2023-06-24 08:37] LABS: ANION GAP 10 mmol/L (4-13); CALCIUM 9.1 mg/dL (8.5-10.1); CO2 20 mmol/L (21-32); GLUCOSE,RANDOM 126 mg/dL (74-106)
[2023-06-24 08:41] LABS: CREATININE 2.7 mg/dL (0.55-1.3)
[2023-06-24 08:57] LABS: BLOOD UREA NITROGEN 124.6 mg/dL (7-18)
[2023-06-24] MEDS: SERTRALINE HCL 25 MG TABLET (FP) NR SCH (09:59)
[2023-06-24] MEDS: MINERAL OIL/PET HY-PHL TOPICAL OINTMENT 454 GM JAR TP SCH ×2 (09:59→22:13)
[2023-06-24] MEDS: MEROPENEM 500 MG in DEXTROSE 5%-WATER 100 ML IVPB SCH ×2 (09:59→22:14)
[2023-06-24] MEDS: VITAMIN B COMP W-C 1 EA TABLET (NEPHRO-VITE) PEG SCH (09:59)
[2023-06-24] MEDS: amLODIPine BESYLATE 10 MG TABLET (FP) GT SCH (09:59)
[2023-06-24] MEDS: VALPROATE SODIUM 250 MG/5 ML UNIT DOSE CUP PEG SCH ×2 (09:59→22:12)
[2023-06-24] MEDS: BACITRACIN ZINC 15 GM TUBE TOPICAL OINTMENT TP SCH (09:59)
[2023-06-24] MEDS: risperiDONE 1 MG TABLET PEG SCH ×2 (09:59→22:12)
[2023-06-24] MEDS: COLLAGENASE CLOSTRIDIUM HIST. 30 GRAMS TUBE TP SCH (10:00)
[2023-06-24] MEDS: NYSTATIN POWDER 100,000 UNITS/GM - 15 GM TOPICAL POWDER TP SCH ×2 (10:00→22:15)
[2023-06-24 19:53] LABS: EPI CELLS >36 /uL (0-25.1); HYALINE CASTS 2 /uL (0-3.1); PH,URINE 5.5 (5.0-8.0); URINE APPEARANCE CLEAR; URINE BACTERIA 8 /uL (0-1359); URINE BILIRUBIN NEGATIVE (NEGATIVE); URINE COLOR YELLOW; URINE GLUCOSE (UA) NEGATIVE (NEGATIVE); URINE KETONE NEGATIVE (NEGATIVE); URINE LEUK ESTERASE 1+ (NEGATIVE); URINE NITRITE NEGATIVE (NEGATIVE); URINE PROTEIN 2+ (NEGATIVE); URINE RBC 24 /uL (0-23.9); URINE UROBILINOGEN 0.2 mg/dL (0.2-1.0); URINE WBC 121 /uL (0-25.8)
[2023-06-24 20:05] LABS: YEAST NEGATIVE (NEGATIVE)
[2023-06-25] MEDS: hydrALAZINE HCL 10 MG TABLET PEG SCH ×3 (06:17→22:37)
[2023-06-25] MEDS: cloNIDine HCL 0.1 MG TABLET PEG SCH ×3 (06:17→22:37)
[2023-06-25] MEDS: INSULIN (LEVEMIR) 100 UNITS/ML UNITS SQ SCH ×2 (06:17→22:40)
[2023-06-25] MEDS: INSULIN ASPART SLIDING SCALE (NOVOLOG) 1 VIAL SQ SCH ×3 (06:17→17:23)
[2023-06-25 08:56] LABS: HEMATOCRIT 22.3 % (32.4-45.2); HEMOGLOBIN 7.6 GM/dL (10.7-15.3); MCH 26.6 pg (25.7-33.7); MCHC 34.1 g/dl (32.0-36.0); MEAN PLT VOLUME 8.2 fl (7.5-11.1); PLATELET COUNT 257 10^3/uL (134-434); RBC 2.86 M/mm3 (3.60-5.2); RDW 19.1 % (11.6-15.6); WHITE BLOOD COUNT 8.4 K/mm3 (4.0-10.0)
[2023-06-25 09:21] LABS: CHLORIDE 105 mmol/L (98-107); POTASSIUM 4.1 mmol/L (3.5-5.1); SODIUM 135 mmol/L (136-145)
[2023-06-25 09:24] LABS: CALCIUM 8.8 mg/dL (8.5-10.1)
[2023-06-25 09:25] LABS: ALBUMIN 1.4 g/dl (3.4-5.0); ANION GAP 9 mmol/L (4-13); CO2 22 mmol/L (21-32); GLUCOSE,RANDOM 149 mg/dL (74-106)
[2023-06-25 09:28] LABS: CREATININE 2.8 mg/dL (0.55-1.3); SGOT/AST 24 U/L (15-37); SGPT/ALT 26 U/L (13-61)
[2023-06-25 09:29] LABS: BILIRUBIN,TOTAL 0.4 mg/dL (0.2-1)
[2023-06-25 09:30] LABS: TOT PROT 5.5 g/dl (6.4-8.2)
[2023-06-25 09:31] LABS: ALK PHOS 207 U/L (45-117)
[2023-06-25 09:35] LABS: BLOOD UREA NITROGEN 132.2 mg/dL (7-18)
[2023-06-25] MEDS: VITAMIN B COMP W-C 1 EA TABLET (NEPHRO-VITE) PEG SCH (10:14)
[2023-06-25] MEDS: SERTRALINE HCL 25 MG TABLET (FP) NR SCH (10:14)
[2023-06-25] MEDS: MEROPENEM 500 MG in DEXTROSE 5%-WATER 100 ML IVPB SCH ×2 (10:14→22:39)
[2023-06-25] MEDS: amLODIPine BESYLATE 10 MG TABLET (FP) GT SCH (10:14)
[2023-06-25] MEDS: VALPROATE SODIUM 250 MG/5 ML UNIT DOSE CUP PEG SCH ×2 (10:15→22:37)
[2023-06-25] MEDS: risperiDONE 1 MG TABLET PEG SCH ×2 (10:15→22:40)
[2023-06-25] MEDS: BACITRACIN ZINC 15 GM TUBE TOPICAL OINTMENT TP SCH (10:15)
[2023-06-25] MEDS: NYSTATIN POWDER 100,000 UNITS/GM - 15 GM TOPICAL POWDER TP SCH ×2 (10:16→22:38)
[2023-06-25] MEDS: MINERAL OIL/PET HY-PHL TOPICAL OINTMENT 454 GM JAR TP SCH ×2 (10:17→22:37)
[2023-06-25] MEDS: COLLAGENASE CLOSTRIDIUM HIST. 30 GRAMS TUBE TP SCH (10:18)
[2023-06-25 10:32] LABS: ANISOCYTOSIS 0; MACROCYTOSIS 1+
[2023-06-26] MEDS: hydrALAZINE HCL 10 MG TABLET PEG SCH ×3 (06:38→21:55)
[2023-06-26] MEDS: cloNIDine HCL 0.1 MG TABLET PEG SCH ×3 (06:38→21:55)
[2023-06-26] MEDS: INSULIN (LEVEMIR) 100 UNITS/ML UNITS SQ SCH ×2 (06:40→23:34)
[2023-06-26] MEDS: INSULIN ASPART SLIDING SCALE (NOVOLOG) 1 VIAL SQ SCH ×3 (06:41→16:46)
[2023-06-26] MEDS ORDERED: INSULIN (LEVEMIR) 100 UNITS/ML UNITS SQ ONE (07:03)
[2023-06-26 08:19] LABS: HEMATOCRIT 24.2 % (32.4-45.2); HEMOGLOBIN 8.4 GM/dL (10.7-15.3); MCH 26.8 pg (25.7-33.7); MCHC 34.6 g/dl (32.0-36.0); MEAN CELL VOLUME 77.5 fl (80-96); MEAN PLT VOLUME 8.1 fl (7.5-11.1); PLATELET COUNT 271 10^3/uL (134-434); RBC 3.12 M/mm3 (3.60-5.2); RDW 19.1 % (11.6-15.6); WHITE BLOOD COUNT 8.4 K/mm3 (4.0-10.0)
[2023-06-26 08:22] LABS: CHLORIDE 105 mmol/L (98-107); POTASSIUM 4.2 mmol/L (3.5-5.1); SODIUM 135 mmol/L (136-145)
[2023-06-26 08:26] LABS: CALCIUM 9.3 mg/dL (8.5-10.1)
[2023-06-26 08:27] LABS: ALBUMIN 1.6 g/dl (3.4-5.0); ANION GAP 9 mmol/L (4-13); CO2 21 mmol/L (21-32); GLUCOSE,RANDOM 167 mg/dL (74-106); MAGNESIUM 2.8 mg/dL (1.8-2.4)
[2023-06-26 08:30] LABS: CREATININE 2.8 mg/dL (0.55-1.3); PHOSPHOROUS 6.2 mg/dL (2.5-4.9); SGOT/AST 34 U/L (15-37); SGPT/ALT 30 U/L (13-61)
[2023-06-26 08:32] LABS: BILIRUBIN,TOTAL 0.4 mg/dL (0.2-1); TOT PROT 5.8 g/dl (6.4-8.2)
[2023-06-26 08:36] LABS: ALK PHOS 258 U/L (45-117); BLOOD UREA NITROGEN 128.9 mg/dL (7-18)
[2023-06-26] MEDS: amLODIPine BESYLATE 10 MG TABLET (FP) GT SCH (10:23)
[2023-06-26] MEDS: VALPROATE SODIUM 250 MG/5 ML UNIT DOSE CUP PEG SCH ×2 (10:24→22:00)
[2023-06-26] MEDS: VITAMIN B COMP W-C 1 EA TABLET (NEPHRO-VITE) PEG SCH (10:24)
[2023-06-26] MEDS: HEPARIN NA (PORCINE) 5,000 UNITS/ML 1ML VIAL SQ SCH ×2 (10:24→21:56)
[2023-06-26] MEDS: SERTRALINE HCL 25 MG TABLET (FP) NR SCH (10:24)
[2023-06-26] MEDS: MEROPENEM 500 MG in DEXTROSE 5%-WATER 100 ML IVPB SCH ×2 (10:25→21:56)
[2023-06-26] MEDS: risperiDONE 1 MG TABLET PEG SCH ×2 (10:25→22:00)
[2023-06-26] MEDS: MINERAL OIL/PET HY-PHL TOPICAL OINTMENT 454 GM JAR TP SCH ×2 (10:26→22:03)
[2023-06-26] MEDS: NYSTATIN POWDER 100,000 UNITS/GM - 15 GM TOPICAL POWDER TP SCH ×2 (10:26→22:02)
[2023-06-26] MEDS: BACITRACIN ZINC 15 GM TUBE TOPICAL OINTMENT TP SCH (16:40)
[2023-06-26] MEDS: COLLAGENASE CLOSTRIDIUM HIST. 30 GRAMS TUBE TP SCH (16:40)
[2023-06-27] MEDS: cloNIDine HCL 0.1 MG TABLET PEG SCH ×3 (05:40→22:46)
[2023-06-27] MEDS: hydrALAZINE HCL 10 MG TABLET PEG SCH ×3 (05:40→22:46)
[2023-06-27] MEDS: INSULIN ASPART SLIDING SCALE (NOVOLOG) 1 VIAL SQ SCH ×3 (06:08→16:43)
[2023-06-27] MEDS: INSULIN (LEVEMIR) 100 UNITS/ML UNITS SQ SCH ×2 (06:09→22:47)
[2023-06-27 09:06] LABS: HEMATOCRIT 22.9 % (32.4-45.2); HEMOGLOBIN 7.7 GM/dL (10.7-15.3); MCH 26.4 pg (25.7-33.7); MCHC 33.5 g/dl (32.0-36.0); MEAN CELL VOLUME 78.8 fl (80-96); MEAN PLT VOLUME 8.1 fl (7.5-11.1); PLATELET COUNT 287 10^3/uL (134-434); RDW 19.4 % (11.6-15.6); WHITE BLOOD COUNT 7.4 K/mm3 (4.0-10.0)
[2023-06-27 09:33] LABS: CHLORIDE 107 mmol/L (98-107); POTASSIUM 4.2 mmol/L (3.5-5.1); SODIUM 139 mmol/L (136-145)
[2023-06-27 09:36] LABS: ALBUMIN 1.5 g/dl (3.4-5.0); ANION GAP 11 mmol/L (4-13); CALCIUM 8.8 mg/dL (8.5-10.1); CO2 21 mmol/L (21-32); GLUCOSE,RANDOM 165 mg/dL (74-106); MAGNESIUM 2.8 mg/dL (1.8-2.4)
[2023-06-27 09:39] LABS: CREATININE 2.7 mg/dL (0.55-1.3); PHOSPHOROUS 5.8 mg/dL (2.5-4.9); SGOT/AST 33 U/L (15-37); SGPT/ALT 32 U/L (13-61)
[2023-06-27 09:41] LABS: BILIRUBIN,TOTAL 0.2 mg/dL (0.2-1); TOT PROT 5.7 g/dl (6.4-8.2)
[2023-06-27 09:43] LABS: ALK PHOS 266 U/L (45-117)
[2023-06-27 09:46] LABS: BLOOD UREA NITROGEN 127.6 mg/dL (7-18)
[2023-06-27] MEDS: HEPARIN NA (PORCINE) 5,000 UNITS/ML 1ML VIAL SQ SCH ×2 (10:14→22:47)
[2023-06-27] MEDS: VITAMIN B COMP W-C 1 EA TABLET (NEPHRO-VITE) PEG SCH (10:15)
[2023-06-27] MEDS: MEROPENEM 500 MG in DEXTROSE 5%-WATER 100 ML IVPB SCH ×2 (10:15→22:45)
[2023-06-27] MEDS: VALPROATE SODIUM 250 MG/5 ML UNIT DOSE CUP PEG SCH ×2 (10:15→22:46)
[2023-06-27] MEDS: risperiDONE 1 MG TABLET PEG SCH ×2 (10:15→22:46)
[2023-06-27] MEDS: SERTRALINE HCL 25 MG TABLET (FP) NR SCH (10:15)
[2023-06-27] MEDS: MINERAL OIL/PET HY-PHL TOPICAL OINTMENT 454 GM JAR TP SCH ×2 (10:17→22:48)
[2023-06-27] MEDS: NYSTATIN POWDER 100,000 UNITS/GM - 15 GM TOPICAL POWDER TP SCH ×2 (10:18→22:50)
[2023-06-27] MEDS: COLLAGENASE CLOSTRIDIUM HIST. 30 GRAMS TUBE TP SCH (10:18)
[2023-06-27] MEDS: BACITRACIN ZINC 15 GM TUBE TOPICAL OINTMENT TP SCH (10:19)
[2023-06-27] MEDS: amLODIPine BESYLATE 10 MG TABLET (FP) GT SCH (10:43)
[2023-06-27] MEDS: SODIUM CHLORIDE 1,000 ML IV SCH (17:05)
[2023-06-28] MEDS: cloNIDine HCL 0.1 MG TABLET PEG SCH ×2 (06:39→13:34)
[2023-06-28] MEDS: hydrALAZINE HCL 10 MG TABLET PEG SCH ×2 (06:39→13:34)
[2023-06-28] MEDS: INSULIN (LEVEMIR) 100 UNITS/ML UNITS SQ SCH (06:40)
[2023-06-28] MEDS: INSULIN ASPART SLIDING SCALE (NOVOLOG) 1 VIAL SQ SCH ×3 (06:41→16:38)
[2023-06-28] MEDS: SODIUM CHLORIDE 1,000 ML IV SCH (06:50)
[2023-06-28 09:20] LABS: HEMATOCRIT 21.2 % (32.4-45.2); HEMOGLOBIN 7.1 GM/dL (10.7-15.3); MCH 26.5 pg (25.7-33.7); MCHC 33.4 g/dl (32.0-36.0); MEAN CELL VOLUME 79.4 fl (80-96); PLATELET COUNT 271 10^3/uL (134-434); RBC 2.67 M/mm3 (3.60-5.2); RDW 19.1 % (11.6-15.6); WHITE BLOOD COUNT 7.6 K/mm3 (4.0-10.0)
[2023-06-28 09:47] LABS: CHLORIDE 108 mmol/L (98-107); SODIUM 138 mmol/L (136-145)
[2023-06-28 09:52] LABS: ANION GAP 8 mmol/L (4-13); CALCIUM 8.6 mg/dL (8.5-10.1); CO2 23 mmol/L (21-32)
[2023-06-28 09:54] LABS: GLUCOSE,RANDOM 153 mg/dL (74-106)
[2023-06-28 09:56] LABS: MAGNESIUM 2.7 mg/dL (1.8-2.4)
[2023-06-28 09:59] LABS: ALBUMIN 1.4 g/dl (3.4-5.0); ALK PHOS 245 U/L (45-117); CREATININE 2.4 mg/dL (0.55-1.3); PHOSPHOROUS 5.6 mg/dL (2.5-4.9); SGOT/AST 27 U/L (15-37); SGPT/ALT 27 U/L (13-61)
[2023-06-28 10:00] LABS: BILIRUBIN,TOTAL 0.2 mg/dL (0.2-1); TOT PROT 5.3 g/dl (6.4-8.2)
[2023-06-28 10:17] LABS: BLOOD UREA NITROGEN 129.1 mg/dL (7-18)
[2023-06-28 10:20] LABS: CHLORIDE 108 mmol/L (98-107); SODIUM 138 mmol/L (136-145)
[2023-06-28 10:21] LABS: CALCIUM 8.6 mg/dL (8.5-10.1)
[2023-06-28 10:23] LABS: ANION GAP 7 mmol/L (4-13); CO2 22 mmol/L (21-32); GLUCOSE,RANDOM 150 mg/dL (74-106)
[2023-06-28 10:26] LABS: CREATININE 2.5 mg/dL (0.55-1.3)
[2023-06-28 10:28] LABS: BLOOD UREA NITROGEN 128.3 mg/dL (7-18)
[2023-06-28] MEDS: MEROPENEM 500 MG in DEXTROSE 5%-WATER 100 ML IVPB SCH (10:34)
[2023-06-28] MEDS: VITAMIN B COMP W-C 1 EA TABLET (NEPHRO-VITE) PEG SCH (10:35)
[2023-06-28] MEDS: risperiDONE 1 MG TABLET PEG SCH (10:35)
[2023-06-28] MEDS: HEPARIN NA (PORCINE) 5,000 UNITS/ML 1ML VIAL SQ SCH (10:35)
[2023-06-28] MEDS: VALPROATE SODIUM 250 MG/5 ML UNIT DOSE CUP PEG SCH (10:35)
[2023-06-28] MEDS: amLODIPine BESYLATE 10 MG TABLET (FP) GT SCH (10:35)
[2023-06-28] MEDS: SERTRALINE HCL 25 MG TABLET (FP) NR SCH (10:35)
[2023-06-28] MEDS: COLLAGENASE CLOSTRIDIUM HIST. 30 GRAMS TUBE TP SCH (10:36)
[2023-06-28] MEDS: BACITRACIN ZINC 15 GM TUBE TOPICAL OINTMENT TP SCH (10:36)
[2023-06-28] MEDS: NYSTATIN POWDER 100,000 UNITS/GM - 15 GM TOPICAL POWDER TP SCH (10:37)
[2023-06-28] MEDS: MINERAL OIL/PET HY-PHL TOPICAL OINTMENT 454 GM JAR TP SCH (10:37)
[2023-06-29] MEDS: hydrALAZINE HCL 10 MG TABLET PEG SCH ×4 (00:16→22:05)
[2023-06-29] MEDS: VALPROATE SODIUM 250 MG/5 ML UNIT DOSE CUP PEG SCH ×3 (00:17→22:05)
[2023-06-29] MEDS: cloNIDine HCL 0.1 MG TABLET PEG SCH ×4 (00:17→22:05)
[2023-06-29] MEDS: INSULIN (LEVEMIR) 100 UNITS/ML UNITS SQ SCH ×3 (00:20→22:06)
[2023-06-29] MEDS: HEPARIN NA (PORCINE) 5,000 UNITS/ML 1ML VIAL SQ SCH ×3 (00:20→22:05)
[2023-06-29] MEDS: MINERAL OIL/PET HY-PHL TOPICAL OINTMENT 454 GM JAR TP SCH ×3 (00:20→22:06)
[2023-06-29] MEDS: NYSTATIN POWDER 100,000 UNITS/GM - 15 GM TOPICAL POWDER TP SCH ×3 (00:21→22:06)
[2023-06-29] MEDS: MEROPENEM 500 MG in DEXTROSE 5%-WATER 100 ML IVPB SCH ×3 (00:21→22:06)
[2023-06-29] MEDS: risperiDONE 1 MG TABLET PEG SCH ×3 (00:21→22:05)
[2023-06-29] MEDS: INSULIN ASPART SLIDING SCALE (NOVOLOG) 1 VIAL SQ SCH ×3 (06:02→16:42)
[2023-06-29 08:56] LABS: CHLORIDE 108 mmol/L (98-107); POTASSIUM 4.1 mmol/L (3.5-5.1); SODIUM 137 mmol/L (136-145)
[2023-06-29 09:10] LABS: ANION GAP 9 mmol/L (4-13); CALCIUM 8.3 mg/dL (8.5-10.1); CO2 20 mmol/L (21-32); GLUCOSE,RANDOM 175 mg/dL (74-106)
[2023-06-29 09:14] LABS: CREATININE 2.4 mg/dL (0.55-1.3)
[2023-06-29 09:15] LABS: BLOOD UREA NITROGEN 122.8 mg/dL (7-18)
[2023-06-29] MEDS: amLODIPine BESYLATE 10 MG TABLET (FP) GT SCH (10:51)
[2023-06-29] MEDS: VITAMIN B COMP W-C 1 EA TABLET (NEPHRO-VITE) PEG SCH (10:51)
[2023-06-29] MEDS: SERTRALINE HCL 25 MG TABLET (FP) NR SCH (10:51)
[2023-06-29] MEDS: BACITRACIN ZINC 15 GM TUBE TOPICAL OINTMENT TP SCH (10:52)
[2023-06-29] MEDS: COLLAGENASE CLOSTRIDIUM HIST. 30 GRAMS TUBE TP SCH (10:53)
[2023-06-30] MEDS: hydrALAZINE HCL 10 MG TABLET PEG SCH ×3 (05:42→21:33)
[2023-06-30] MEDS: cloNIDine HCL 0.1 MG TABLET PEG SCH ×3 (05:43→21:34)
[2023-06-30] MEDS: INSULIN (LEVEMIR) 100 UNITS/ML UNITS SQ SCH ×2 (06:06→21:35)
[2023-06-30] MEDS: INSULIN ASPART SLIDING SCALE (NOVOLOG) 1 VIAL SQ SCH ×3 (06:08→16:44)
[2023-06-30 09:33] LABS: HEMATOCRIT 18.3 % (32.4-45.2); MCHC 34.7 g/dl (32.0-36.0); MEAN CELL VOLUME 77.8 fl (80-96); MEAN PLT VOLUME 7.6 fl (7.5-11.1); PLATELET COUNT 262 10^3/uL (134-434); RBC 2.35 M/mm3 (3.60-5.2); RDW 19.6 % (11.6-15.6); RETICULOCYTES 1.59 % (0.5-1.5)
[2023-06-30 09:51] LABS: HEMOGLOBIN 6.3 GM/dL (10.7-15.3)
[2023-06-30 09:58] LABS: CHLORIDE 109 mmol/L (98-107); POTASSIUM 4.2 mmol/L (3.5-5.1); SODIUM 139 mmol/L (136-145)
[2023-06-30 10:01] LABS: ANION GAP 9 mmol/L (4-13); CALCIUM 8.4 mg/dL (8.5-10.1); CO2 21 mmol/L (21-32); GLUCOSE,RANDOM 153 mg/dL (74-106)
[2023-06-30 10:04] LABS: CREATININE 2.4 mg/dL (0.55-1.3)
[2023-06-30] MEDS: MINERAL OIL/PET HY-PHL TOPICAL OINTMENT 454 GM JAR TP SCH ×2 (10:17→21:35)
[2023-06-30] MEDS: NYSTATIN POWDER 100,000 UNITS/GM - 15 GM TOPICAL POWDER TP SCH ×2 (10:18→21:34)
[2023-06-30] MEDS: COLLAGENASE CLOSTRIDIUM HIST. 30 GRAMS TUBE TP SCH (10:18)
[2023-06-30] MEDS: HEPARIN NA (PORCINE) 5,000 UNITS/ML 1ML VIAL SQ SCH ×2 (10:19→21:33)
[2023-06-30] MEDS: VITAMIN B COMP W-C 1 EA TABLET (NEPHRO-VITE) PEG SCH (10:19)
[2023-06-30] MEDS: BACITRACIN ZINC 15 GM TUBE TOPICAL OINTMENT TP SCH (10:19)
[2023-06-30] MEDS: SERTRALINE HCL 25 MG TABLET (FP) NR SCH (10:19)
[2023-06-30] MEDS: amLODIPine BESYLATE 10 MG TABLET (FP) GT SCH (10:19)
[2023-06-30] MEDS: VALPROATE SODIUM 250 MG/5 ML UNIT DOSE CUP PEG SCH ×2 (10:20→21:34)
[2023-06-30] MEDS: MEROPENEM 500 MG in DEXTROSE 5%-WATER 100 ML IVPB SCH ×2 (10:20→21:34)
[2023-06-30] MEDS: risperiDONE 1 MG TABLET PEG SCH ×2 (10:21→21:34)
[2023-06-30 12:18] LABS: ALBUMIN 1.4 g/dl (3.4-5.0)
[2023-06-30 20:01] LABS: HEMATOCRIT 25.3 % (32.4-45.2); HEMOGLOBIN 8.3 GM/dL (10.7-15.3); MCH 26.5 pg (25.7-33.7); MCHC 32.8 g/dl (32.0-36.0); MEAN CELL VOLUME 80.8 fl (80-96); MEAN PLT VOLUME 7.4 fl (7.5-11.1); PLATELET COUNT 293 10^3/uL (134-434); RBC 3.13 M/mm3 (3.60-5.2); RDW 19.5 % (11.6-15.6)
[2023-07-01] MEDS: cloNIDine HCL 0.1 MG TABLET PEG SCH ×3 (06:16→22:03)
[2023-07-01] MEDS: INSULIN (LEVEMIR) 100 UNITS/ML UNITS SQ SCH (06:16)
[2023-07-01] MEDS: hydrALAZINE HCL 10 MG TABLET PEG SCH ×3 (06:16→22:02)
[2023-07-01] MEDS: INSULIN ASPART SLIDING SCALE (NOVOLOG) 1 VIAL SQ SCH ×3 (06:57→17:53)
[2023-07-01 07:53] LABS: HEMATOCRIT 25.1 % (32.4-45.2); HEMOGLOBIN 8.4 GM/dL (10.7-15.3); MCH 26.8 pg (25.7-33.7); MCHC 33.4 g/dl (32.0-36.0); MEAN CELL VOLUME 80.3 fl (80-96); MEAN PLT VOLUME 7.6 fl (7.5-11.1); PLATELET COUNT 307 10^3/uL (134-434); RBC 3.13 M/mm3 (3.60-5.2); RDW 19.1 % (11.6-15.6); WHITE BLOOD COUNT 11.5 K/mm3 (4.0-10.0)
[2023-07-01 08:08] LABS: CHLORIDE 109 mmol/L (98-107); POTASSIUM 3.9 mmol/L (3.5-5.1); SODIUM 139 mmol/L (136-145)
[2023-07-01 08:11] LABS: CALCIUM 8.5 mg/dL (8.5-10.1)
[2023-07-01 08:12] LABS: ALBUMIN 1.5 g/dl (3.4-5.0); ANION GAP 9 mmol/L (4-13); CO2 21 mmol/L (21-32); GLUCOSE,RANDOM 177 mg/dL (74-106); MAGNESIUM 2.8 mg/dL (1.8-2.4)
[2023-07-01 08:15] LABS: CREATININE 2.4 mg/dL (0.55-1.3); PHOSPHOROUS 5.4 mg/dL (2.5-4.9); SGOT/AST 31 U/L (15-37); SGPT/ALT 32 U/L (13-61)
[2023-07-01 08:16] LABS: BILIRUBIN,TOTAL 0.3 mg/dL (0.2-1)
[2023-07-01 08:17] LABS: ALK PHOS 266 U/L (45-117)
[2023-07-01 08:42] LABS: BLOOD UREA NITROGEN 130.1 mg/dL (7-18)
[2023-07-01] MEDS: VITAMIN B COMP W-C 1 EA TABLET (NEPHRO-VITE) PEG SCH (10:48)
[2023-07-01] MEDS: amLODIPine BESYLATE 10 MG TABLET (FP) GT SCH (10:48)
[2023-07-01] MEDS: SERTRALINE HCL 25 MG TABLET (FP) NR SCH (10:48)
[2023-07-01] MEDS: BACITRACIN ZINC 15 GM TUBE TOPICAL OINTMENT TP SCH (10:49)
[2023-07-01] MEDS: MEROPENEM 500 MG in DEXTROSE 5%-WATER 100 ML IVPB SCH ×2 (10:49→22:03)
[2023-07-01] MEDS: HEPARIN NA (PORCINE) 5,000 UNITS/ML 1ML VIAL SQ SCH (10:49)
[2023-07-01] MEDS: VALPROATE SODIUM 250 MG/5 ML UNIT DOSE CUP PEG SCH ×2 (10:49→22:03)
[2023-07-01] MEDS: MINERAL OIL/PET HY-PHL TOPICAL OINTMENT 454 GM JAR TP SCH (10:49)
[2023-07-01] MEDS: NYSTATIN POWDER 100,000 UNITS/GM - 15 GM TOPICAL POWDER TP SCH (10:49)
[2023-07-01] MEDS: risperiDONE 1 MG TABLET PEG SCH ×2 (10:49→22:04)
[2023-07-01] MEDS: COLLAGENASE CLOSTRIDIUM HIST. 30 GRAMS TUBE TP SCH (10:50)
[2023-07-02] MEDS: MINERAL OIL/PET HY-PHL TOPICAL OINTMENT 454 GM JAR TP SCH ×3 (00:02→21:14)
[2023-07-02] MEDS: INSULIN (LEVEMIR) 100 UNITS/ML UNITS SQ SCH ×3 (00:03→21:12)
[2023-07-02] MEDS: HEPARIN NA (PORCINE) 5,000 UNITS/ML 1ML VIAL SQ SCH ×3 (00:03→21:14)
[2023-07-02] MEDS: NYSTATIN POWDER 100,000 UNITS/GM - 15 GM TOPICAL POWDER TP SCH ×3 (00:04→21:14)
[2023-07-02] MEDS: hydrALAZINE HCL 10 MG TABLET PEG SCH ×3 (06:26→21:13)
[2023-07-02] MEDS: cloNIDine HCL 0.1 MG TABLET PEG SCH ×3 (06:27→21:14)
[2023-07-02] MEDS: INSULIN ASPART SLIDING SCALE (NOVOLOG) 1 VIAL SQ SCH ×3 (06:27→16:52)
[2023-07-02 08:06] LABS: HEMATOCRIT 21.3 % (32.4-45.2); HEMOGLOBIN 7.4 GM/dL (10.7-15.3); MCH 28.1 pg (25.7-33.7); MCHC 34.7 g/dl (32.0-36.0); MEAN PLT VOLUME 7.5 fl (7.5-11.1); PLATELET COUNT 287 10^3/uL (134-434); RBC 2.64 M/mm3 (3.60-5.2); RDW 19.7 % (11.6-15.6); WHITE BLOOD COUNT 10.1 K/mm3 (4.0-10.0)
[2023-07-02 08:11] LABS: CHLORIDE 112 mmol/L (98-107); SODIUM 142 mmol/L (136-145)
[2023-07-02 08:17] LABS: CALCIUM 9.2 mg/dL (8.5-10.1)
[2023-07-02 08:18] LABS: ALBUMIN 1.5 g/dl (3.4-5.0); ANION GAP 8 mmol/L (4-13); CO2 22 mmol/L (21-32); GLUCOSE,RANDOM 159 mg/dL (74-106)
[2023-07-02 08:19] LABS: CREATININE 2.6 mg/dL (0.55-1.3); SGPT/ALT 30 U/L (13-61)
[2023-07-02 08:21] LABS: BILIRUBIN,TOTAL 0.3 mg/dL (0.2-1); SGOT/AST 31 U/L (15-37); TOT PROT 5.8 g/dl (6.4-8.2)
[2023-07-02 08:24] LABS: ALK PHOS 225 U/L (45-117); BLOOD UREA NITROGEN 136.4 mg/dL (7-18)
[2023-07-02] MEDS: MEROPENEM 500 MG in DEXTROSE 5%-WATER 100 ML IVPB SCH ×2 (11:10→21:13)
[2023-07-02] MEDS: VITAMIN B COMP W-C 1 EA TABLET (NEPHRO-VITE) PEG SCH (11:11)
[2023-07-02] MEDS: SERTRALINE HCL 25 MG TABLET (FP) NR SCH (11:11)
[2023-07-02] MEDS: amLODIPine BESYLATE 10 MG TABLET (FP) GT SCH (11:11)
[2023-07-02] MEDS: BACITRACIN ZINC 15 GM TUBE TOPICAL OINTMENT TP SCH (11:12)
[2023-07-02] MEDS: VALPROATE SODIUM 250 MG/5 ML UNIT DOSE CUP PEG SCH ×2 (11:12→21:14)
[2023-07-02] MEDS: risperiDONE 1 MG TABLET PEG SCH ×2 (11:13→21:14)
[2023-07-02] MEDS: COLLAGENASE CLOSTRIDIUM HIST. 30 GRAMS TUBE TP SCH (11:13)
[2023-07-03] MEDS: cloNIDine HCL 0.1 MG TABLET PEG SCH ×3 (05:49→22:09)
[2023-07-03] MEDS: hydrALAZINE HCL 10 MG TABLET PEG SCH ×3 (05:49→22:09)
[2023-07-03] MEDS: INSULIN (LEVEMIR) 100 UNITS/ML UNITS SQ SCH ×2 (06:03→22:10)
[2023-07-03] MEDS: INSULIN ASPART SLIDING SCALE (NOVOLOG) 1 VIAL SQ SCH ×3 (06:03→16:38)
[2023-07-03 08:46] LABS: INR 1.07 (0.83-1.09); PROTHROMBIN TIME (PATIENT) 12.4 SEC (9.7-13.0)
[2023-07-03 08:47] LABS: BASO % 0.5 % (0-2.0); EOS % 3.9 % (0-4.5); HEMATOCRIT 20.2 % (32.4-45.2); LYMPH % 3.9 % (8-40); MCH 27.5 pg (25.7-33.7); MCHC 34.6 g/dl (32.0-36.0); MEAN CELL VOLUME 79.5 fl (80-96); MEAN PLT VOLUME 7.4 fl (7.5-11.1); MONO % 8.1 % (3.8-10.2); NEUT % 83.6 % (42.8-82.8); PLATELET COUNT 277 10^3/uL (134-434); RBC 2.54 M/mm3 (3.60-5.2); RDW 20.3 % (11.6-15.6); WHITE BLOOD COUNT 9.2 K/mm3 (4.0-10.0)
[2023-07-03 08:48] LABS: ACTIVATED PTT 34.3 SECONDS (25.2-36.5)
[2023-07-03 08:59] LABS: CHLORIDE 112 mmol/L (98-107); POTASSIUM 4.1 mmol/L (3.5-5.1); SODIUM 144 mmol/L (136-145)
[2023-07-03 09:06] LABS: ALBUMIN 1.4 g/dl (3.4-5.0); ANION GAP 11 mmol/L (4-13); CALCIUM 8.2 mg/dL (8.5-10.1); CO2 20 mmol/L (21-32); GLUCOSE,RANDOM 154 mg/dL (74-106); MAGNESIUM 2.9 mg/dL (1.8-2.4)
[2023-07-03 09:09] LABS: CREATININE 2.5 mg/dL (0.55-1.3); PHOSPHOROUS 5.4 mg/dL (2.5-4.9); SGPT/ALT 29 U/L (13-61)
[2023-07-03 09:10] LABS: SGOT/AST 25 U/L (15-37)
[2023-07-03 09:11] LABS: BILIRUBIN,TOTAL 0.4 mg/dL (0.2-1); TOT PROT 5.7 g/dl (6.4-8.2)
[2023-07-03 09:12] LABS: ALK PHOS 207 U/L (45-117)
[2023-07-03 09:17] LABS: BLOOD UREA NITROGEN 138.5 mg/dL (7-18)
[2023-07-03] MEDS: VITAMIN B COMP W-C 1 EA TABLET (NEPHRO-VITE) PEG SCH (10:21)
[2023-07-03] MEDS: MEROPENEM 500 MG in DEXTROSE 5%-WATER 100 ML IVPB SCH ×2 (10:21→22:10)
[2023-07-03] MEDS: amLODIPine BESYLATE 10 MG TABLET (FP) GT SCH (10:21)
[2023-07-03] MEDS: SERTRALINE HCL 25 MG TABLET (FP) NR SCH (10:21)
[2023-07-03] MEDS: MINERAL OIL/PET HY-PHL TOPICAL OINTMENT 454 GM JAR TP SCH ×2 (10:22→22:10)
[2023-07-03] MEDS: risperiDONE 1 MG TABLET PEG SCH (10:22)
[2023-07-03] MEDS: VALPROATE SODIUM 250 MG/5 ML UNIT DOSE CUP PEG SCH ×2 (10:22→22:10)
[2023-07-03] MEDS: BACITRACIN ZINC 15 GM TUBE TOPICAL OINTMENT TP SCH (10:22)
[2023-07-03] MEDS: NYSTATIN POWDER 100,000 UNITS/GM - 15 GM TOPICAL POWDER TP SCH ×2 (10:23→22:12)
[2023-07-03] MEDS: COLLAGENASE CLOSTRIDIUM HIST. 30 GRAMS TUBE TP SCH (10:23)
[2023-07-03] MEDS ORDERED: ACETAMINOPHEN 325 MG TABLET (FP) PO PRN (11:28)
[2023-07-03] MEDS: HEPARIN NA (PORCINE) 5,000 UNITS/ML 1ML VIAL SQ SCH ×2 (11:42→22:10)
[2023-07-03] MEDS ORDERED: MAGNESIUM CL 64 MG TABLET.SA PO SCH (13:45)
[2023-07-03 16:38] LABS: BASO % 0.2 % (0-2.0); HEMATOCRIT 20.8 % (32.4-45.2); LYMPH % 2.8 % (8-40); MCHC 33.8 g/dl (32.0-36.0); MEAN CELL VOLUME 79.9 fl (80-96); MEAN PLT VOLUME 6.7 fl (7.5-11.1); MONO % 7.7 % (3.8-10.2); NEUT % 86.3 % (42.8-82.8); PLATELET COUNT 263 10^3/uL (134-434); RBC 2.61 M/mm3 (3.60-5.2); RDW 20.3 % (11.6-15.6); WHITE BLOOD COUNT 12.7 K/mm3 (4.0-10.0)
[2023-07-03] MEDS ORDERED: LORazepam 0.5 MG TABLET PO ONE (16:49)
[2023-07-03] MEDS: ACETAMINOPHEN 650 MG/20.3 ML ORAL SOLUTION (CUPS) GT PRN (22:13)
[2023-07-04] MEDS: hydrALAZINE HCL 10 MG TABLET PEG SCH ×3 (06:14→21:38)
[2023-07-04] MEDS: INSULIN (LEVEMIR) 100 UNITS/ML UNITS SQ SCH ×2 (06:14→21:40)
[2023-07-04] MEDS: cloNIDine HCL 0.1 MG TABLET PEG SCH ×3 (06:14→21:38)
[2023-07-04] MEDS: INSULIN ASPART SLIDING SCALE (NOVOLOG) 1 VIAL SQ SCH ×3 (06:15→17:05)
[2023-07-04 08:30] LABS: HEMATOCRIT 23.2 % (32.4-45.2); HEMOGLOBIN 7.5 GM/dL (10.7-15.3); MCH 26.7 pg (25.7-33.7); MCHC 32.5 g/dl (32.0-36.0); MEAN PLT VOLUME 7.4 fl (7.5-11.1); PLATELET COUNT 286 10^3/uL (134-434); RBC 2.83 M/mm3 (3.60-5.2); RDW 20.4 % (11.6-15.6); WHITE BLOOD COUNT 12.3 K/mm3 (4.0-10.0)
[2023-07-04] MEDS ORDERED: OXYMETAZOLINE 0.05% NASAL SOLUTION 15 ML BOTTLE NS ONE (11:09)
[2023-07-04 11:19] LABS: HEMATOCRIT 23.5 % (32.4-45.2); HEMOGLOBIN 7.8 GM/dL (10.7-15.3); MCH 26.4 pg (25.7-33.7); MCHC 33.2 g/dl (32.0-36.0); MEAN CELL VOLUME 79.6 fl (80-96); MEAN PLT VOLUME 7.5 fl (7.5-11.1); PLATELET COUNT 289 10^3/uL (134-434); RBC 2.95 M/mm3 (3.60-5.2); RDW 20.4 % (11.6-15.6); WHITE BLOOD COUNT 12.6 K/mm3 (4.0-10.0)
[2023-07-04] MEDS: SERTRALINE HCL 50 MG TABLET (FP) PO SCH (11:24)
[2023-07-04] MEDS: amLODIPine BESYLATE 10 MG TABLET (FP) GT SCH (11:24)
[2023-07-04] MEDS: MEROPENEM 500 MG in DEXTROSE 5%-WATER 100 ML IVPB SCH ×2 (11:25→21:37)
[2023-07-04] MEDS: VITAMIN B COMP W-C 1 EA TABLET (NEPHRO-VITE) PEG SCH (11:28)
[2023-07-04] MEDS: VALPROATE SODIUM 250 MG/5 ML UNIT DOSE CUP PEG SCH ×2 (11:28→21:37)
[2023-07-04] MEDS: BACITRACIN ZINC 15 GM TUBE TOPICAL OINTMENT TP SCH (11:28)
[2023-07-04] MEDS: HEPARIN NA (PORCINE) 5,000 UNITS/ML 1ML VIAL SQ SCH ×2 (11:28→21:38)
[2023-07-04] MEDS: MINERAL OIL/PET HY-PHL TOPICAL OINTMENT 454 GM JAR TP SCH ×2 (11:28→21:38)
[2023-07-04] MEDS: NYSTATIN POWDER 100,000 UNITS/GM - 15 GM TOPICAL POWDER TP SCH ×2 (11:29→21:40)
[2023-07-04] MEDS: COLLAGENASE CLOSTRIDIUM HIST. 30 GRAMS TUBE TP SCH (11:29)
[2023-07-04] MEDS: MAGNESIUM CL 64 MG TABLET.SA PO SCH (12:16)
[2023-07-04] MEDS ORDERED: ACETAMINOPHEN 1000 MG/100 ML BAG IVPB ONE (12:30)
[2023-07-05] MEDS: cloNIDine HCL 0.1 MG TABLET PEG SCH ×3 (05:38→22:04)
[2023-07-05] MEDS: hydrALAZINE HCL 10 MG TABLET PEG SCH ×3 (05:38→22:04)
[2023-07-05] MEDS: INSULIN (LEVEMIR) 100 UNITS/ML UNITS SQ SCH ×2 (06:01→22:05)
[2023-07-05] MEDS: INSULIN ASPART SLIDING SCALE (NOVOLOG) 1 VIAL SQ SCH ×3 (06:02→17:13)
[2023-07-05 10:05] LABS: HEMATOCRIT 21.1 % (32.4-45.2); HEMOGLOBIN 7.1 GM/dL (10.7-15.3); MCHC 33.5 g/dl (32.0-36.0); MEAN CELL VOLUME 80.7 fl (80-96); MEAN PLT VOLUME 7.6 fl (7.5-11.1); PLATELET COUNT 292 10^3/uL (134-434); RBC 2.61 M/mm3 (3.60-5.2); RDW 20.8 % (11.6-15.6); WHITE BLOOD COUNT 11.5 K/mm3 (4.0-10.0)
[2023-07-05] MEDS: MINERAL OIL/PET HY-PHL TOPICAL OINTMENT 454 GM JAR TP SCH ×2 (10:17→22:07)
[2023-07-05] MEDS: NYSTATIN POWDER 100,000 UNITS/GM - 15 GM TOPICAL POWDER TP SCH ×2 (10:18→22:06)
[2023-07-05] MEDS: HEPARIN NA (PORCINE) 5,000 UNITS/ML 1ML VIAL SQ SCH ×2 (10:18→22:05)
[2023-07-05] MEDS: VALPROATE SODIUM 250 MG/5 ML UNIT DOSE CUP PEG SCH ×2 (10:18→22:05)
[2023-07-05] MEDS: VITAMIN B COMP W-C 1 EA TABLET (NEPHRO-VITE) PEG SCH (10:18)
[2023-07-05] MEDS: BACITRACIN ZINC 15 GM TUBE TOPICAL OINTMENT TP SCH (10:18)
[2023-07-05] MEDS: amLODIPine BESYLATE 10 MG TABLET (FP) GT SCH (10:18)
[2023-07-05] MEDS: COLLAGENASE CLOSTRIDIUM HIST. 30 GRAMS TUBE TP SCH (10:18)
[2023-07-05] MEDS: SERTRALINE HCL 50 MG TABLET (FP) PO SCH (10:19)
[2023-07-05] MEDS: ACETAMINOPHEN 650 MG/20.3 ML ORAL SOLUTION (CUPS) GT PRN (10:21)
[2023-07-05 10:36] LABS: CHLORIDE 116 mmol/L (98-107); POTASSIUM 4.9 mmol/L (3.5-5.1); SODIUM 145 mmol/L (136-145)
[2023-07-05 10:57] LABS: ANION GAP 10 mmol/L (4-13); CO2 20 mmol/L (21-32); GLUCOSE,RANDOM 161 mg/dL (74-106); MAGNESIUM 2.9 mg/dL (1.8-2.4)
[2023-07-05 10:59] LABS: CALCIUM 8.1 mg/dL (8.5-10.1); PHOSPHOROUS 4.9 mg/dL (2.5-4.9)
[2023-07-05 11:01] LABS: BILIRUBIN,TOTAL 0.3 mg/dL (0.2-1); SGOT/AST 21 U/L (15-37)
[2023-07-05 11:02] LABS: TOT PROT 6.6 g/dl (6.4-8.2)
[2023-07-05 11:23] LABS: SGPT/ALT 24 U/L (13-61)
[2023-07-05 11:25] LABS: CREATININE 2.4 mg/dL (0.55-1.3)
[2023-07-05 11:26] LABS: ALBUMIN 1.8 g/dl (3.4-5.0); ALK PHOS 124 U/L (45-117); BLOOD UREA NITROGEN 148.4 mg/dL (7-18)
[2023-07-06] MEDS: hydrALAZINE HCL 10 MG TABLET PEG SCH ×3 (05:36→21:50)
[2023-07-06] MEDS: cloNIDine HCL 0.1 MG TABLET PEG SCH ×3 (05:37→21:50)
[2023-07-06] MEDS: INSULIN ASPART SLIDING SCALE (NOVOLOG) 1 VIAL SQ SCH ×3 (06:33→17:24)
[2023-07-06] MEDS: INSULIN (LEVEMIR) 100 UNITS/ML UNITS SQ SCH ×2 (06:33→21:50)
[2023-07-06 07:29] LABS: MCH 27.4 pg (25.7-33.7); MCHC 33.1 g/dl (32.0-36.0); MEAN CELL VOLUME 82.7 fl (80-96); MEAN PLT VOLUME 7.3 fl (7.5-11.1); PLATELET COUNT 294 10^3/uL (134-434); RDW 21.4 % (11.6-15.6); WHITE BLOOD COUNT 9.4 K/mm3 (4.0-10.0)
[2023-07-06 07:32] LABS: HEMOGLOBIN 6.3 GM/dL (10.7-15.3)
[2023-07-06 07:37] LABS: CHLORIDE 122 mmol/L (98-107); POTASSIUM 4.3 mmol/L (3.5-5.1); SODIUM 150 mmol/L (136-145)
[2023-07-06 07:42] LABS: ALBUMIN 1.5 g/dl (3.4-5.0); ANION GAP 7 mmol/L (4-13); CALCIUM 7.3 mg/dL (8.5-10.1); CO2 21 mmol/L (21-32); GLUCOSE,RANDOM 113 mg/dL (74-106)
[2023-07-06 07:45] LABS: CREATININE 2.5 mg/dL (0.55-1.3); SGOT/AST 15 U/L (15-37); SGPT/ALT 18 U/L (13-61)
[2023-07-06 07:46] LABS: BILIRUBIN,TOTAL 0.3 mg/dL (0.2-1); TOT PROT 5.5 g/dl (6.4-8.2)
[2023-07-06 07:47] LABS: ALK PHOS 94 U/L (45-117)
[2023-07-06 07:50] LABS: BLOOD UREA NITROGEN 144.4 mg/dL (7-18)
[2023-07-06] MEDS ORDERED: DEXTROSE 5%-WATER - 1,000 ML IV SCH (10:15)
[2023-07-06] MEDS: VITAMIN B COMP W-C 1 EA TABLET (NEPHRO-VITE) PEG SCH (11:16)
[2023-07-06] MEDS: SERTRALINE HCL 50 MG TABLET (FP) PO SCH (11:16)
[2023-07-06] MEDS: NYSTATIN POWDER 100,000 UNITS/GM - 15 GM TOPICAL POWDER TP SCH ×2 (11:17→21:49)
[2023-07-06] MEDS: COLLAGENASE CLOSTRIDIUM HIST. 30 GRAMS TUBE TP SCH (11:17)
[2023-07-06] MEDS: amLODIPine BESYLATE 10 MG TABLET (FP) GT SCH (11:17)
[2023-07-06] MEDS: MINERAL OIL/PET HY-PHL TOPICAL OINTMENT 454 GM JAR TP SCH ×2 (11:17→21:50)
[2023-07-06] MEDS: BACITRACIN ZINC 15 GM TUBE TOPICAL OINTMENT TP SCH (11:17)
[2023-07-06] MEDS: VALPROATE SODIUM 250 MG/5 ML UNIT DOSE CUP PEG SCH ×2 (11:17→21:50)
[2023-07-06] MEDS: HEPARIN NA (PORCINE) 5,000 UNITS/ML 1ML VIAL SQ SCH ×2 (11:39→21:50)
[2023-07-06 19:55] LABS: HEMATOCRIT 21.7 % (32.4-45.2); HEMOGLOBIN 7.2 GM/dL (10.7-15.3); MCH 27.8 pg (25.7-33.7); MEAN CELL VOLUME 84.1 fl (80-96); MEAN PLT VOLUME 6.9 fl (7.5-11.1); PLATELET COUNT 284 10^3/uL (134-434); RBC 2.58 M/mm3 (3.60-5.2); RDW 20.5 % (11.6-15.6); WHITE BLOOD COUNT 8.3 K/mm3 (4.0-10.0)
[2023-07-07] MEDS: cloNIDine HCL 0.1 MG TABLET PEG SCH ×3 (05:34→22:14)
[2023-07-07] MEDS: hydrALAZINE HCL 10 MG TABLET PEG SCH ×3 (05:34→22:14)
[2023-07-07] MEDS: INSULIN (LEVEMIR) 100 UNITS/ML UNITS SQ SCH ×2 (06:01→22:17)
[2023-07-07] MEDS: INSULIN ASPART SLIDING SCALE (NOVOLOG) 1 VIAL SQ SCH ×3 (06:01→16:56)
[2023-07-07 09:45] LABS: HEMATOCRIT 22.1 % (32.4-45.2); HEMOGLOBIN 7.3 GM/dL (10.7-15.3); MCH 27.8 pg (25.7-33.7); MCHC 32.9 g/dl (32.0-36.0); MEAN CELL VOLUME 84.5 fl (80-96); PLATELET COUNT 295 10^3/uL (134-434); RBC 2.61 M/mm3 (3.60-5.2); RDW 20.7 % (11.6-15.6); WHITE BLOOD COUNT 9.1 K/mm3 (4.0-10.0)
[2023-07-07 09:57] LABS: CHLORIDE 124 mmol/L (98-107); POTASSIUM 4.2 mmol/L (3.5-5.1); SODIUM 153 mmol/L (136-145)
[2023-07-07 10:04] LABS: CALCIUM 7.3 mg/dL (8.5-10.1)
[2023-07-07 10:05] LABS: ANION GAP 9 mmol/L (4-13); CO2 21 mmol/L (21-32); GLUCOSE,RANDOM 125 mg/dL (74-106); MAGNESIUM 2.8 mg/dL (1.8-2.4)
[2023-07-07 10:08] LABS: CREATININE 2.6 mg/dL (0.55-1.3); PHOSPHOROUS 4.6 mg/dL (2.5-4.9)
[2023-07-07] MEDS: VALPROATE SODIUM 250 MG/5 ML UNIT DOSE CUP PEG SCH ×2 (10:11→22:14)
[2023-07-07] MEDS: amLODIPine BESYLATE 10 MG TABLET (FP) GT SCH (10:11)
[2023-07-07] MEDS: MINERAL OIL/PET HY-PHL TOPICAL OINTMENT 454 GM JAR TP SCH ×2 (10:11→22:15)
[2023-07-07] MEDS: SERTRALINE HCL 50 MG TABLET (FP) PO SCH (10:11)
[2023-07-07] MEDS: VITAMIN B COMP W-C 1 EA TABLET (NEPHRO-VITE) PEG SCH (10:11)
[2023-07-07] MEDS: BACITRACIN ZINC 15 GM TUBE TOPICAL OINTMENT TP SCH (10:11)
[2023-07-07] MEDS: HEPARIN NA (PORCINE) 5,000 UNITS/ML 1ML VIAL SQ SCH (10:12)
[2023-07-07] MEDS: COLLAGENASE CLOSTRIDIUM HIST. 30 GRAMS TUBE TP SCH (10:12)
[2023-07-07] MEDS: NYSTATIN POWDER 100,000 UNITS/GM - 15 GM TOPICAL POWDER TP SCH ×2 (10:12→22:15)
[2023-07-07] MEDS ORDERED: PANTOPRAZOLE SODIUM 40 MG VIAL IVPUSH ONE (14:08)
[2023-07-08] MEDS: INSULIN ASPART SLIDING SCALE (NOVOLOG) 1 VIAL SQ SCH ×3 (06:18→17:42)
[2023-07-08] MEDS: cloNIDine HCL 0.1 MG TABLET PEG SCH ×3 (06:18→22:08)
[2023-07-08] MEDS: hydrALAZINE HCL 10 MG TABLET PEG SCH ×3 (06:18→22:08)
[2023-07-08] MEDS: INSULIN (LEVEMIR) 100 UNITS/ML UNITS SQ SCH ×2 (06:18→22:09)
[2023-07-08 08:18] LABS: HEMOGLOBIN 7.4 GM/dL (10.7-15.3); MCH 28.3 pg (25.7-33.7); MCHC 33.8 g/dl (32.0-36.0); MEAN CELL VOLUME 83.6 fl (80-96); MEAN PLT VOLUME 7.2 fl (7.5-11.1); PLATELET COUNT 312 10^3/uL (134-434); RBC 2.63 M/mm3 (3.60-5.2); RDW 21.1 % (11.6-15.6); WHITE BLOOD COUNT 8.8 K/mm3 (4.0-10.0)
[2023-07-08 08:42] LABS: CHLORIDE 126 mmol/L (98-107); POTASSIUM 3.7 mmol/L (3.5-5.1); SODIUM 154 mmol/L (136-145)
[2023-07-08 08:44] LABS: CALCIUM 7.2 mg/dL (8.5-10.1)
[2023-07-08 08:45] LABS: ANION GAP 7 mmol/L (4-13); CO2 21 mmol/L (21-32); GLUCOSE,RANDOM 165 mg/dL (74-106)
[2023-07-08 08:48] LABS: CREATININE 2.6 mg/dL (0.55-1.3)
[2023-07-08 08:49] LABS: BLOOD UREA NITROGEN 124.6 mg/dL (7-18)
[2023-07-08] MEDS: BACITRACIN ZINC 15 GM TUBE TOPICAL OINTMENT TP SCH (10:41)
[2023-07-08] MEDS: NYSTATIN POWDER 100,000 UNITS/GM - 15 GM TOPICAL POWDER TP SCH ×2 (10:41→22:11)
[2023-07-08] MEDS: VITAMIN B COMP W-C 1 EA TABLET (NEPHRO-VITE) PEG SCH (10:41)
[2023-07-08] MEDS: SERTRALINE HCL 50 MG TABLET (FP) PO SCH (10:41)
[2023-07-08] MEDS: MINERAL OIL/PET HY-PHL TOPICAL OINTMENT 454 GM JAR TP SCH ×2 (10:41→22:10)
[2023-07-08] MEDS: amLODIPine BESYLATE 10 MG TABLET (FP) GT SCH (10:41)
[2023-07-08] MEDS: VALPROATE SODIUM 250 MG/5 ML UNIT DOSE CUP PEG SCH ×2 (10:41→22:08)
[2023-07-08] MEDS: COLLAGENASE CLOSTRIDIUM HIST. 30 GRAMS TUBE TP SCH (10:42)
[2023-07-09] MEDS: hydrALAZINE HCL 10 MG TABLET PEG SCH ×3 (06:13→21:25)
[2023-07-09] MEDS: cloNIDine HCL 0.1 MG TABLET PEG SCH ×3 (06:13→21:25)
[2023-07-09] MEDS: INSULIN (LEVEMIR) 100 UNITS/ML UNITS SQ SCH ×2 (06:13→21:26)
[2023-07-09] MEDS: INSULIN ASPART SLIDING SCALE (NOVOLOG) 1 VIAL SQ SCH ×3 (06:14→16:58)
[2023-07-09 08:57] LABS: BASO % 0.5 % (0-2.0); EOS % 4.1 % (0-4.5); HEMATOCRIT 21.3 % (32.4-45.2); HEMOGLOBIN 7.1 GM/dL (10.7-15.3); LYMPH % 5.7 % (8-40); MCH 28.8 pg (25.7-33.7); MCHC 33.4 g/dl (32.0-36.0); MEAN CELL VOLUME 86.2 fl (80-96); NEUT % 79.7 % (42.8-82.8); PLATELET COUNT 289 10^3/uL (134-434); RBC 2.47 M/mm3 (3.60-5.2); RDW 20.8 % (11.6-15.6); WHITE BLOOD COUNT 8.7 K/mm3 (4.0-10.0)
[2023-07-09 09:05] LABS: CHLORIDE 128 mmol/L (98-107); POTASSIUM 3.6 mmol/L (3.5-5.1); SODIUM 152 mmol/L (136-145)
[2023-07-09 09:06] LABS: CALCIUM 7.5 mg/dL (8.5-10.1)
[2023-07-09 09:07] LABS: ANION GAP 3 mmol/L (4-13); CO2 20 mmol/L (21-32); GLUCOSE,RANDOM 122 mg/dL (74-106)
[2023-07-09 09:10] LABS: BLOOD UREA NITROGEN 115.9 mg/dL (7-18); CREATININE 2.6 mg/dL (0.55-1.3)
[2023-07-09] MEDS: VITAMIN B COMP W-C 1 EA TABLET (NEPHRO-VITE) PEG SCH (10:14)
[2023-07-09] MEDS: amLODIPine BESYLATE 10 MG TABLET (FP) GT SCH (10:14)
[2023-07-09] MEDS: SERTRALINE HCL 50 MG TABLET (FP) PO SCH (10:14)
[2023-07-09] MEDS: VALPROATE SODIUM 250 MG/5 ML UNIT DOSE CUP PEG SCH ×2 (10:14→21:25)
[2023-07-09] MEDS: BACITRACIN ZINC 15 GM TUBE TOPICAL OINTMENT TP SCH (10:15)
[2023-07-09] MEDS: COLLAGENASE CLOSTRIDIUM HIST. 30 GRAMS TUBE TP SCH (10:15)
[2023-07-09] MEDS: MINERAL OIL/PET HY-PHL TOPICAL OINTMENT 454 GM JAR TP SCH ×2 (10:15→21:25)
[2023-07-09] MEDS: NYSTATIN POWDER 100,000 UNITS/GM - 15 GM TOPICAL POWDER TP SCH ×2 (10:15→21:26)
[2023-07-09 11:52] LABS: ANISOCYTOSIS 3+; MACROCYTOSIS 0; TARGET CELLS 1+
[2023-07-09] MEDS: ACETAMINOPHEN 650 MG/20.3 ML ORAL SOLUTION (CUPS) GT PRN (21:24)
[2023-07-09] MEDS: HEPARIN NA (PORCINE) 5,000 UNITS/ML 1ML VIAL SQ SCH (21:25)
[2023-07-10] MEDS: cloNIDine HCL 0.1 MG TABLET PEG SCH ×3 (05:11→22:14)
[2023-07-10] MEDS: hydrALAZINE HCL 10 MG TABLET PEG SCH ×3 (05:11→22:14)
[2023-07-10] MEDS ORDERED: DEXTROSE 50%-WATER 25 GM/50 ML DISP.SYRIN ONE (05:17)
[2023-07-10] MEDS ORDERED: DEXTROSE 50%-WATER 25 GM/50 ML DISP.SYRIN IVPUSH ONE (05:30)
[2023-07-10] MEDS: INSULIN ASPART SLIDING SCALE (NOVOLOG) 1 VIAL SQ SCH ×3 (06:02→17:14)
[2023-07-10 07:59] LABS: BASO % 0.6 % (0-2.0); EOS % 4.6 % (0-4.5); HEMATOCRIT 21.1 % (32.4-45.2); HEMOGLOBIN 6.8 GM/dL (10.7-15.3); LYMPH % 6.8 % (8-40); MCH 27.7 pg (25.7-33.7); MCHC 32.4 g/dl (32.0-36.0); MEAN CELL VOLUME 85.7 fl (80-96); MONO % 9.3 % (3.8-10.2); NEUT % 78.7 % (42.8-82.8); PLATELET COUNT 303 10^3/uL (134-434); RBC 2.47 M/mm3 (3.60-5.2); RDW 20.6 % (11.6-15.6); WHITE BLOOD COUNT 7.7 K/mm3 (4.0-10.0)
[2023-07-10 08:17] LABS: POTASSIUM 3.5 mmol/L (3.5-5.1)
[2023-07-10 08:18] LABS: CALCIUM 7.4 mg/dL (8.5-10.1)
[2023-07-10 08:19] LABS: BLOOD UREA NITROGEN 102.7 mg/dL (7-18)
[2023-07-10 08:22] LABS: CREATININE 2.5 mg/dL (0.55-1.3)
[2023-07-10] MEDS: VITAMIN B COMP W-C 1 EA TABLET (NEPHRO-VITE) PEG SCH (10:34)
[2023-07-10] MEDS: amLODIPine BESYLATE 10 MG TABLET (FP) GT SCH (10:34)
[2023-07-10] MEDS: VALPROATE SODIUM 250 MG/5 ML UNIT DOSE CUP PEG SCH ×2 (10:35→22:14)
[2023-07-10] MEDS: COLLAGENASE CLOSTRIDIUM HIST. 30 GRAMS TUBE TP SCH (10:35)
[2023-07-10] MEDS: BACITRACIN ZINC 15 GM TUBE TOPICAL OINTMENT TP SCH (10:35)
[2023-07-10] MEDS: SERTRALINE HCL 50 MG TABLET (FP) PO SCH (10:35)
[2023-07-10] MEDS: NYSTATIN POWDER 100,000 UNITS/GM - 15 GM TOPICAL POWDER TP SCH ×2 (10:35→22:22)
[2023-07-10] MEDS: MINERAL OIL/PET HY-PHL TOPICAL OINTMENT 454 GM JAR TP SCH ×2 (10:35→22:22)
[2023-07-10] MEDS: INSULIN (LEVEMIR) 100 UNITS/ML UNITS SQ SCH ×2 (10:53→22:20)
[2023-07-10] MEDS: HEPARIN NA (PORCINE) 5,000 UNITS/ML 1ML VIAL SQ SCH (10:53)
[2023-07-10 20:05] LABS: HEMATOCRIT 27.8 % (32.4-45.2); HEMOGLOBIN 9.5 GM/dL (10.7-15.3); MCH 28.7 pg (25.7-33.7); MCHC 34.3 g/dl (32.0-36.0); MEAN CELL VOLUME 83.7 fl (80-96); MEAN PLT VOLUME 7.2 fl (7.5-11.1); PLATELET COUNT 285 10^3/uL (134-434); RBC 3.32 M/mm3 (3.60-5.2); RDW 19.1 % (11.6-15.6); WHITE BLOOD COUNT 8.1 K/mm3 (4.0-10.0)
[2023-07-11] MEDS: hydrALAZINE HCL 10 MG TABLET PEG SCH ×3 (05:44→22:35)
[2023-07-11] MEDS: cloNIDine HCL 0.1 MG TABLET PEG SCH ×3 (05:45→22:35)
[2023-07-11] MEDS: INSULIN (LEVEMIR) 100 UNITS/ML UNITS SQ SCH ×2 (06:00→22:36)
[2023-07-11] MEDS: INSULIN ASPART SLIDING SCALE (NOVOLOG) 1 VIAL SQ SCH ×3 (06:01→16:26)
[2023-07-11] MEDS: SERTRALINE HCL 50 MG TABLET (FP) PO SCH (09:13)
[2023-07-11] MEDS: VALPROATE SODIUM 250 MG/5 ML UNIT DOSE CUP PEG SCH ×2 (09:13→22:38)
[2023-07-11] MEDS: amLODIPine BESYLATE 10 MG TABLET (FP) GT SCH (09:13)
[2023-07-11] MEDS: MINERAL OIL/PET HY-PHL TOPICAL OINTMENT 454 GM JAR TP SCH ×2 (09:14→22:35)
[2023-07-11] MEDS: BACITRACIN ZINC 15 GM TUBE TOPICAL OINTMENT TP SCH (09:14)
[2023-07-11] MEDS: COLLAGENASE CLOSTRIDIUM HIST. 30 GRAMS TUBE TP SCH (09:14)
[2023-07-11] MEDS: VITAMIN B COMP W-C 1 EA TABLET (NEPHRO-VITE) PEG SCH (09:14)
[2023-07-11] MEDS: NYSTATIN POWDER 100,000 UNITS/GM - 15 GM TOPICAL POWDER TP SCH ×2 (09:14→22:36)
[2023-07-11 09:56] LABS: POTASSIUM 3.5 mmol/L (3.5-5.1)
[2023-07-11 09:59] LABS: BLOOD UREA NITROGEN 90.3 mg/dL (7-18); CALCIUM 7.9 mg/dL (8.5-10.1)
[2023-07-11] MEDS ORDERED: DEXTROSE 5%-WATER - 1,000 ML IV SCH ×2 (10:00→11:30)
[2023-07-11 10:03] LABS: CREATININE 2.3 mg/dL (0.55-1.3)
[2023-07-11 10:09] LABS: HEMATOCRIT 26.7 % (32.4-45.2); HEMOGLOBIN 8.9 GM/dL (10.7-15.3); MCH 28.3 pg (25.7-33.7); MCHC 33.2 g/dl (32.0-36.0); MEAN CELL VOLUME 85.1 fl (80-96); MEAN PLT VOLUME 7.8 fl (7.5-11.1); PLATELET COUNT 284 10^3/uL (134-434); RBC 3.14 M/mm3 (3.60-5.2); RDW 19.4 % (11.6-15.6)
[2023-07-11 10:11] LABS: WHITE BLOOD COUNT 10.7 K/mm3 (4.0-10.0)
[2023-07-11 11:19] LABS: ANISOCYTOSIS 3+; MACROCYTOSIS 0
[2023-07-11 15:32] LABS: POTASSIUM 4.2 mmol/L (3.5-5.1)
[2023-07-11 15:34] LABS: CALCIUM 8.7 mg/dL (8.5-10.1)
[2023-07-11 15:39] LABS: BILIRUBIN,TOTAL 0.2 mg/dL (0.2-1)
[2023-07-11 15:40] LABS: ALBUMIN 3.1 g/dl (3.4-5.0); BLOOD UREA NITROGEN 17.6 mg/dL (7-18)
[2023-07-11 21:42] LABS: POTASSIUM 3.5 mmol/L (3.5-5.1)
[2023-07-11 21:47] LABS: CREATININE 2.4 mg/dL (0.55-1.3)
[2023-07-11 21:52] LABS: CALCIUM 7.7 mg/dL (8.5-10.1)
[2023-07-11 21:55] LABS: BLOOD UREA NITROGEN 85.7 mg/dL (7-18)
[2023-07-11] MEDS: ACETAMINOPHEN 650 MG/20.3 ML ORAL SOLUTION (CUPS) GT PRN (22:35)
[2023-07-12] MEDS: cloNIDine HCL 0.1 MG TABLET PEG SCH ×3 (05:59→22:39)
[2023-07-12] MEDS: hydrALAZINE HCL 10 MG TABLET PEG SCH ×3 (05:59→22:39)
[2023-07-12] MEDS: INSULIN ASPART SLIDING SCALE (NOVOLOG) 1 VIAL SQ SCH ×3 (06:29→16:42)
[2023-07-12] MEDS: INSULIN (LEVEMIR) 100 UNITS/ML UNITS SQ SCH ×2 (06:29→22:40)
[2023-07-12 08:44] LABS: HEMATOCRIT 27.8 % (32.4-45.2); HEMOGLOBIN 9.3 GM/dL (10.7-15.3); MCH 28.6 pg (25.7-33.7); MCHC 33.3 g/dl (32.0-36.0); MEAN CELL VOLUME 85.6 fl (80-96); MEAN PLT VOLUME 7.2 fl (7.5-11.1); PLATELET COUNT 312 10^3/uL (134-434); RBC 3.24 M/mm3 (3.60-5.2); RDW 19.3 % (11.6-15.6)
[2023-07-12 08:59] LABS: POTASSIUM 3.3 mmol/L (3.5-5.1)
[2023-07-12 09:05] LABS: CALCIUM 7.6 mg/dL (8.5-10.1)
[2023-07-12 09:06] LABS: BLOOD UREA NITROGEN 86.3 mg/dL (7-18)
[2023-07-12] MEDS: VALPROATE SODIUM 250 MG/5 ML UNIT DOSE CUP PEG SCH ×2 (09:08→22:40)
[2023-07-12] MEDS: SERTRALINE HCL 50 MG TABLET (FP) PO SCH (09:08)
[2023-07-12] MEDS: VITAMIN B COMP W-C 1 EA TABLET (NEPHRO-VITE) PEG SCH (09:08)
[2023-07-12] MEDS: amLODIPine BESYLATE 10 MG TABLET (FP) GT SCH (09:08)
[2023-07-12] MEDS: HEPARIN NA (PORCINE) 5,000 UNITS/ML 1ML VIAL SQ SCH ×2 (09:08→22:40)
[2023-07-12 09:09] LABS: CREATININE 2.3 mg/dL (0.55-1.3)
[2023-07-12] MEDS: COLLAGENASE CLOSTRIDIUM HIST. 30 GRAMS TUBE TP SCH (09:09)
[2023-07-12] MEDS: BACITRACIN ZINC 15 GM TUBE TOPICAL OINTMENT TP SCH (09:09)
[2023-07-12] MEDS: MINERAL OIL/PET HY-PHL TOPICAL OINTMENT 454 GM JAR TP SCH ×2 (09:09→22:40)
[2023-07-12] MEDS: NYSTATIN POWDER 100,000 UNITS/GM - 15 GM TOPICAL POWDER TP SCH ×2 (09:09→22:40)
[2023-07-12 09:11] LABS: BILIRUBIN,TOTAL 0.3 mg/dL (0.2-1)
[2023-07-12 09:20] LABS: ALBUMIN 1.7 g/dl (3.4-5.0)
[2023-07-12] MEDS ORDERED: POTASSIUM CHLORIDE ORAL LIQUID 20 MEQ/15 ML PO ONE (10:45)
[2023-07-13] MEDS: cloNIDine HCL 0.1 MG TABLET PEG SCH ×3 (05:59→23:06)
[2023-07-13] MEDS: INSULIN ASPART SLIDING SCALE (NOVOLOG) 1 VIAL SQ SCH ×3 (05:59→17:48)
[2023-07-13] MEDS: INSULIN (LEVEMIR) 100 UNITS/ML UNITS SQ SCH ×2 (05:59→23:00)
[2023-07-13] MEDS: hydrALAZINE HCL 10 MG TABLET PEG SCH ×3 (05:59→23:07)
[2023-07-13 07:50] LABS: HEMATOCRIT 28.8 % (32.4-45.2); HEMOGLOBIN 9.6 GM/dL (10.7-15.3); MCH 28.7 pg (25.7-33.7); MCHC 33.3 g/dl (32.0-36.0); MEAN PLT VOLUME 7.2 fl (7.5-11.1); PLATELET COUNT 325 10^3/uL (134-434); RBC 3.35 M/mm3 (3.60-5.2); RDW 19.5 % (11.6-15.6)
[2023-07-13 08:03] LABS: POTASSIUM 3.4 mmol/L (3.5-5.1)
[2023-07-13 08:31] LABS: BLOOD UREA NITROGEN 73.8 mg/dL (7-18); CALCIUM 7.9 mg/dL (8.5-10.1)
[2023-07-13 08:35] LABS: CREATININE 2.1 mg/dL (0.55-1.3)
[2023-07-13] MEDS ORDERED: POTASSIUM CHLORIDE ORAL LIQUID 20 MEQ/15 ML PO ONE (08:37)
[2023-07-13] MEDS: SERTRALINE HCL 50 MG TABLET (FP) PO SCH (10:21)
[2023-07-13] MEDS: VITAMIN B COMP W-C 1 EA TABLET (NEPHRO-VITE) PEG SCH (10:21)
[2023-07-13] MEDS: amLODIPine BESYLATE 10 MG TABLET (FP) GT SCH (10:21)
[2023-07-13] MEDS: HEPARIN NA (PORCINE) 5,000 UNITS/ML 1ML VIAL SQ SCH ×2 (10:21→23:08)
[2023-07-13] MEDS: COLLAGENASE CLOSTRIDIUM HIST. 30 GRAMS TUBE TP SCH (10:22)
[2023-07-13] MEDS: MINERAL OIL/PET HY-PHL TOPICAL OINTMENT 454 GM JAR TP SCH ×2 (10:22→23:09)
[2023-07-13] MEDS: BACITRACIN ZINC 15 GM TUBE TOPICAL OINTMENT TP SCH (10:22)
[2023-07-13] MEDS: NYSTATIN POWDER 100,000 UNITS/GM - 15 GM TOPICAL POWDER TP SCH ×2 (10:22→23:09)
[2023-07-13] MEDS: VALPROATE SODIUM 250 MG/5 ML UNIT DOSE CUP PEG SCH ×2 (10:23→23:06)
[2023-07-13] MEDS: POLYETHYLENE GLYCOL (HEALTHYLAX) 3350 17 GM PACKET GT SCH (17:33)
[2023-07-13] MEDS: DEXTROSE 5%-0.45% SALINE 1,000 ML IV SCH (17:34)
[2023-07-13] MEDS ORDERED: BISACODYL 5 MG TABLET.DR (FP) PO ONE (17:45)
[2023-07-13] MEDS ORDERED: DEXTROSE 50%-WATER - 25 GM/50 ML VIAL IVPUSH ONE ×2 (17:50→23:26)
[2023-07-13] MEDS ORDERED: DEXTROSE 50%-WATER 25 GM/50 ML DISP.SYRIN ONE (17:51)
[2023-07-13 18:22] LABS: POTASSIUM 3.8 mmol/L (3.5-5.1)
[2023-07-13 18:23] LABS: CALCIUM 8.3 mg/dL (8.5-10.1)
[2023-07-13 18:24] LABS: BLOOD UREA NITROGEN 74.5 mg/dL (7-18)
[2023-07-13 18:27] LABS: CREATININE 2.2 mg/dL (0.55-1.3)
[2023-07-13] MEDS ORDERED: DEXTROSE 50%-WATER 25 GM/50 ML DISP.SYRIN IVPUSH ONE (18:30)
[2023-07-14] MEDS ORDERED: DEXTROSE 50%-WATER 25 GM/50 ML DISP.SYRIN ONE (00:09)
[2023-07-14] MEDS: hydrALAZINE HCL 10 MG TABLET PEG SCH ×3 (06:20→22:57)
[2023-07-14] MEDS: cloNIDine HCL 0.1 MG TABLET PEG SCH ×3 (06:20→22:57)
[2023-07-14] MEDS: INSULIN ASPART SLIDING SCALE (NOVOLOG) 1 VIAL SQ SCH ×3 (06:21→16:33)
[2023-07-14] MEDS ORDERED: DEXTROSE 50%-WATER - 25 GM/50 ML VIAL IVPUSH ONE (06:29)
[2023-07-14] MEDS: ACETAMINOPHEN 650 MG/20.3 ML ORAL SOLUTION (CUPS) GT PRN (07:09)
[2023-07-14 09:12] LABS: HEMATOCRIT 26.1 % (32.4-45.2); HEMOGLOBIN 8.9 GM/dL (10.7-15.3); MCH 28.7 pg (25.7-33.7); MCHC 34.2 g/dl (32.0-36.0); MEAN CELL VOLUME 84.2 fl (80-96); MEAN PLT VOLUME 7.4 fl (7.5-11.1); PLATELET COUNT 324 10^3/uL (134-434); RDW 19.1 % (11.6-15.6); WHITE BLOOD COUNT 7.6 K/mm3 (4.0-10.0)
[2023-07-14 09:57] LABS: BLOOD UREA NITROGEN 68.7 mg/dL (7-18); CALCIUM 7.5 mg/dL (8.5-10.1); CREATININE 2.2 mg/dL (0.55-1.3); POTASSIUM 3.6 mmol/L (3.5-5.1)
[2023-07-14] MEDS: amLODIPine BESYLATE 10 MG TABLET (FP) GT SCH (10:54)
[2023-07-14] MEDS: POLYETHYLENE GLYCOL (HEALTHYLAX) 3350 17 GM PACKET GT SCH (10:54)
[2023-07-14] MEDS: VITAMIN B COMP W-C 1 EA TABLET (NEPHRO-VITE) PEG SCH (10:54)
[2023-07-14] MEDS: VALPROATE SODIUM 250 MG/5 ML UNIT DOSE CUP PEG SCH ×2 (10:54→22:57)
[2023-07-14] MEDS: HEPARIN NA (PORCINE) 5,000 UNITS/ML 1ML VIAL SQ SCH ×2 (10:54→22:57)
[2023-07-14] MEDS: SERTRALINE HCL 50 MG TABLET (FP) PO SCH (10:55)
[2023-07-14] MEDS: NYSTATIN POWDER 100,000 UNITS/GM - 15 GM TOPICAL POWDER TP SCH ×2 (10:58→22:58)
[2023-07-14] MEDS: MINERAL OIL/PET HY-PHL TOPICAL OINTMENT 454 GM JAR TP SCH ×2 (10:59→22:58)
[2023-07-14] MEDS: BACITRACIN ZINC 15 GM TUBE TOPICAL OINTMENT TP SCH (12:00)
[2023-07-14] MEDS: COLLAGENASE CLOSTRIDIUM HIST. 30 GRAMS TUBE TP SCH (12:01)
[2023-07-14] MEDS: DEXTROSE 5%-0.45% SALINE 1,000 ML IV SCH (17:50)
[2023-07-14] MEDS ORDERED: BISACODYL 5 MG TABLET.DR (FP) PO ONE (18:59)
[2023-07-14] MEDS ORDERED: LACTULOSE 20 GM/30 ML UDC (FOR ORAL USE ONLY) GT ONE ×2 (19:45→20:45)
[2023-07-15] MEDS: hydrALAZINE HCL 10 MG TABLET PEG SCH ×3 (06:20→21:28)
[2023-07-15] MEDS: cloNIDine HCL 0.1 MG TABLET PEG SCH ×3 (06:20→21:28)
[2023-07-15] MEDS: INSULIN ASPART SLIDING SCALE (NOVOLOG) 1 VIAL SQ SCH ×3 (06:20→16:46)
[2023-07-15 07:34] LABS: HEMATOCRIT 28.4 % (32.4-45.2); HEMOGLOBIN 9.6 GM/dL (10.7-15.3); MCH 28.9 pg (25.7-33.7); MCHC 33.8 g/dl (32.0-36.0); MEAN CELL VOLUME 85.5 fl (80-96); MEAN PLT VOLUME 7.3 fl (7.5-11.1); PLATELET COUNT 387 10^3/uL (134-434); RBC 3.32 M/mm3 (3.60-5.2); RDW 19.3 % (11.6-15.6)
[2023-07-15 07:51] LABS: POTASSIUM 3.5 mmol/L (3.5-5.1)
[2023-07-15 07:52] LABS: CALCIUM 7.8 mg/dL (8.5-10.1)
[2023-07-15 07:53] LABS: BLOOD UREA NITROGEN 58.5 mg/dL (7-18)
[2023-07-15 07:56] LABS: CREATININE 2.1 mg/dL (0.55-1.3)
[2023-07-15] MEDS: HEPARIN NA (PORCINE) 5,000 UNITS/ML 1ML VIAL SQ SCH ×2 (10:15→21:29)
[2023-07-15] MEDS: amLODIPine BESYLATE 10 MG TABLET (FP) GT SCH (10:15)
[2023-07-15] MEDS: SERTRALINE HCL 50 MG TABLET (FP) PO SCH (10:15)
[2023-07-15] MEDS: NYSTATIN POWDER 100,000 UNITS/GM - 15 GM TOPICAL POWDER TP SCH ×2 (10:15→21:29)
[2023-07-15] MEDS: POLYETHYLENE GLYCOL (HEALTHYLAX) 3350 17 GM PACKET GT SCH (10:15)
[2023-07-15] MEDS: VALPROATE SODIUM 250 MG/5 ML UNIT DOSE CUP PEG SCH ×2 (10:15→21:29)
[2023-07-15] MEDS: VITAMIN B COMP W-C 1 EA TABLET (NEPHRO-VITE) PEG SCH (10:15)
[2023-07-15] MEDS: MINERAL OIL/PET HY-PHL TOPICAL OINTMENT 454 GM JAR TP SCH ×2 (10:16→21:28)
[2023-07-15] MEDS: BACITRACIN ZINC 15 GM TUBE TOPICAL OINTMENT TP SCH (10:16)
[2023-07-15] MEDS: COLLAGENASE CLOSTRIDIUM HIST. 30 GRAMS TUBE TP SCH (10:16)
[2023-07-15] MEDS: ACETAMINOPHEN 650 MG/20.3 ML ORAL SOLUTION (CUPS) GT PRN ×2 (15:51→21:28)
[2023-07-16] MEDS: cloNIDine HCL 0.1 MG TABLET PEG SCH ×3 (05:22→22:25)
[2023-07-16] MEDS: hydrALAZINE HCL 10 MG TABLET PEG SCH ×3 (05:22→22:25)
[2023-07-16] MEDS: INSULIN ASPART SLIDING SCALE (NOVOLOG) 1 VIAL SQ SCH ×3 (06:00→16:40)
[2023-07-16 08:27] LABS: HEMATOCRIT 26.5 % (32.4-45.2); HEMOGLOBIN 9.3 GM/dL (10.7-15.3); MCH 30.4 pg (25.7-33.7); MEAN CELL VOLUME 86.9 fl (80-96); MEAN PLT VOLUME 7.4 fl (7.5-11.1); PLATELET COUNT 330 10^3/uL (134-434); RBC 3.05 M/mm3 (3.60-5.2); RDW 18.7 % (11.6-15.6); WHITE BLOOD COUNT 8.3 K/mm3 (4.0-10.0)
[2023-07-16 08:44] LABS: POTASSIUM 3.5 mmol/L (3.5-5.1)
[2023-07-16 08:46] LABS: CALCIUM 7.5 mg/dL (8.5-10.1)
[2023-07-16 08:47] LABS: ALBUMIN 1.6 g/dl (3.4-5.0); BLOOD UREA NITROGEN 51.9 mg/dL (7-18)
[2023-07-16 08:50] LABS: CREATININE 2.1 mg/dL (0.55-1.3)
[2023-07-16 08:51] LABS: BILIRUBIN,TOTAL 0.4 mg/dL (0.2-1)
[2023-07-16] MEDS ORDERED: ACETAMINOPHEN 1000 MG/100 ML BAG IVPB ONE (10:00)
[2023-07-16] MEDS: amLODIPine BESYLATE 10 MG TABLET (FP) GT SCH (10:07)
[2023-07-16] MEDS: VALPROATE SODIUM 250 MG/5 ML UNIT DOSE CUP PEG SCH ×2 (10:07→22:26)
[2023-07-16] MEDS: SERTRALINE HCL 50 MG TABLET (FP) PO SCH (10:08)
[2023-07-16] MEDS: MINERAL OIL/PET HY-PHL TOPICAL OINTMENT 454 GM JAR TP SCH ×2 (10:08→22:37)
[2023-07-16] MEDS: HEPARIN NA (PORCINE) 5,000 UNITS/ML 1ML VIAL SQ SCH ×2 (10:08→22:26)
[2023-07-16] MEDS: BACITRACIN ZINC 15 GM TUBE TOPICAL OINTMENT TP SCH (10:08)
[2023-07-16] MEDS: POLYETHYLENE GLYCOL (HEALTHYLAX) 3350 17 GM PACKET GT SCH (10:08)
[2023-07-16] MEDS: NYSTATIN POWDER 100,000 UNITS/GM - 15 GM TOPICAL POWDER TP SCH ×2 (10:08→22:37)
[2023-07-16] MEDS: VITAMIN B COMP W-C 1 EA TABLET (NEPHRO-VITE) PEG SCH (10:08)
[2023-07-16] MEDS: COLLAGENASE CLOSTRIDIUM HIST. 30 GRAMS TUBE TP SCH (10:09)
[2023-07-16] MEDS ORDERED: EPOETIN ALFA-EPBX 10,000 UNIT/ML VIAL SQ ONE (14:00)
[2023-07-16] MEDS: ACETAMINOPHEN 650 MG/20.3 ML ORAL SOLUTION (CUPS) GT PRN ×2 (14:42→22:34)
[2023-07-16] MEDS ORDERED: PANTOPRAZOLE 40 MG TABLET PO ONE (16:15)
[2023-07-16] MEDS ORDERED: PANTOPRAZOLE 40 MG TABLET PO SCH (16:30)
[2023-07-16 16:56] LABS: EPI CELLS 21 /uL (0-25.1); HYALINE CASTS 1 /uL (0-3.1); PH,URINE 5.5 (5.0-8.0); URINE APPEARANCE CLEAR; URINE BACTERIA 9 /uL (0-1359); URINE BILIRUBIN NEGATIVE (NEGATIVE); URINE COLOR YELLOW; URINE GLUCOSE (UA) NEGATIVE (NEGATIVE); URINE KETONE NEGATIVE (NEGATIVE); URINE LEUK ESTERASE 1+ (NEGATIVE); URINE NITRITE NEGATIVE (NEGATIVE); URINE PROTEIN 3+ (NEGATIVE); URINE RBC 19 /uL (0-23.9); URINE UROBILINOGEN 0.2 mg/dL (0.2-1.0); URINE WBC 280 /uL (0-25.8)
[2023-07-16] MEDS ORDERED: INSULIN (LEVEMIR) 100 UNITS/ML UNITS SQ SCH (16:59)
[2023-07-16] MEDS ORDERED: FAMOTIDINE 20 MG/2.5 ML ORAL LIQUID PO SCH ×2 (17:45→19:00)
[2023-07-16] MEDS ORDERED: PANTOPRAZOLE SODIUM 40 MG VIAL IVPUSH ONE ×2 (19:30→23:00)
[2023-07-16] MEDS: ZINC SULFATE 220 MG CAPSULE (FP) GT SCH (22:25)
[2023-07-16] MEDS: INSULIN (LEVEMIR) 100 UNITS/ML UNITS SQ SCH (22:26)
[2023-07-17] MEDS: hydrALAZINE HCL 10 MG TABLET PEG SCH ×3 (05:26→21:08)
[2023-07-17] MEDS: cloNIDine HCL 0.1 MG TABLET PEG SCH ×3 (05:26→21:08)
[2023-07-17] MEDS: INSULIN ASPART SLIDING SCALE (NOVOLOG) 1 VIAL SQ SCH ×3 (06:02→17:23)
[2023-07-17] MEDS ORDERED: FAMOTIDINE 20 MG/2.5 ML ORAL LIQUID GT SCH (10:00)
[2023-07-17] MEDS: HEPARIN NA (PORCINE) 5,000 UNITS/ML 1ML VIAL SQ SCH ×2 (10:10→21:11)
[2023-07-17] MEDS: amLODIPine BESYLATE 10 MG TABLET (FP) GT SCH (10:10)
[2023-07-17] MEDS: POLYETHYLENE GLYCOL (HEALTHYLAX) 3350 17 GM PACKET GT SCH (10:10)
[2023-07-17] MEDS: VITAMIN B COMP W-C 1 EA TABLET (NEPHRO-VITE) PEG SCH (10:11)
[2023-07-17] MEDS: SERTRALINE HCL 50 MG TABLET (FP) PO SCH (10:11)
[2023-07-17] MEDS: FAMOTIDINE 20 MG/2.5 ML ORAL LIQUID GT SCH (10:11)
[2023-07-17] MEDS: BACITRACIN ZINC 15 GM TUBE TOPICAL OINTMENT TP SCH (11:00)
[2023-07-17] MEDS: NYSTATIN POWDER 100,000 UNITS/GM - 15 GM TOPICAL POWDER TP SCH ×2 (11:00→21:16)
[2023-07-17] MEDS: COLLAGENASE CLOSTRIDIUM HIST. 30 GRAMS TUBE TP SCH (11:00)
[2023-07-17] MEDS: MINERAL OIL/PET HY-PHL TOPICAL OINTMENT 454 GM JAR TP SCH ×2 (11:01→21:16)
[2023-07-17] MEDS: ZINC SULFATE 220 MG CAPSULE (FP) GT SCH ×2 (11:45→21:12)
[2023-07-17] MEDS: VALPROATE SODIUM 250 MG/5 ML UNIT DOSE CUP PEG SCH ×2 (13:56→21:11)
[2023-07-17] MEDS: INSULIN (LEVEMIR) 100 UNITS/ML UNITS SQ SCH (21:11)
[2023-07-17] MEDS ORDERED: INSULIN (LEVEMIR) 100 UNITS/ML UNITS SQ ONE (22:04)
[2023-07-18] MEDS: hydrALAZINE HCL 10 MG TABLET PEG SCH ×2 (05:57→14:49)
[2023-07-18] MEDS: cloNIDine HCL 0.1 MG TABLET PEG SCH ×2 (05:58→14:49)
[2023-07-18] MEDS: INSULIN ASPART SLIDING SCALE (NOVOLOG) 1 VIAL SQ SCH ×3 (06:14→16:13)
[2023-07-18 08:10] VITALS: RESP 18
[2023-07-18] MEDS: VITAMIN B COMP W-C 1 EA TABLET (NEPHRO-VITE) PEG SCH (09:55)
[2023-07-18] MEDS: MINERAL OIL/PET HY-PHL TOPICAL OINTMENT 454 GM JAR TP SCH (09:55)
[2023-07-18] MEDS: FAMOTIDINE 20 MG/2.5 ML ORAL LIQUID GT SCH (09:55)
[2023-07-18] MEDS: VALPROATE SODIUM 250 MG/5 ML UNIT DOSE CUP PEG SCH (09:55)
[2023-07-18] MEDS: ZINC SULFATE 220 MG CAPSULE (FP) GT SCH (09:55)
[2023-07-18] MEDS: HEPARIN NA (PORCINE) 5,000 UNITS/ML 1ML VIAL SQ SCH (09:55)
[2023-07-18] MEDS: amLODIPine BESYLATE 10 MG TABLET (FP) GT SCH (09:55)
[2023-07-18] MEDS: NYSTATIN POWDER 100,000 UNITS/GM - 15 GM TOPICAL POWDER TP SCH (09:56)
[2023-07-18] MEDS: POLYETHYLENE GLYCOL (HEALTHYLAX) 3350 17 GM PACKET GT SCH (09:56)
[2023-07-18] MEDS: COLLAGENASE CLOSTRIDIUM HIST. 30 GRAMS TUBE TP SCH (09:56)
[2023-07-18] MEDS: BACITRACIN ZINC 15 GM TUBE TOPICAL OINTMENT TP SCH (09:56)
[2023-07-18] MEDS: SERTRALINE HCL 50 MG TABLET (FP) PO SCH (09:57)
[2023-07-18 11:39] LABS: HEMATOCRIT 29.1 % (32.4-45.2); HEMOGLOBIN 9.7 GM/dL (10.7-15.3); MCH 28.7 pg (25.7-33.7); MCHC 33.3 g/dl (32.0-36.0); MEAN CELL VOLUME 86.2 fl (80-96); MEAN PLT VOLUME 6.6 fl (7.5-11.1); PLATELET COUNT 409 10^3/uL (134-434); RBC 3.37 M/mm3 (3.60-5.2); WHITE BLOOD COUNT 9.7 K/mm3 (4.0-10.0)
[2023-07-18 12:04] LABS: ANISOCYTOSIS 1+; MACROCYTOSIS 0
[2023-07-18 12:13] LABS: POTASSIUM 3.3 mmol/L (3.5-5.1)
[2023-07-18 12:17] LABS: ALBUMIN 1.7 g/dl (3.4-5.0); BLOOD UREA NITROGEN 48.1 mg/dL (7-18); CALCIUM 8.3 mg/dL (8.5-10.1); MAGNESIUM 2.2 mg/dL (1.8-2.4)
[2023-07-18 12:19] LABS: CREATININE 2.4 mg/dL (0.55-1.3); PHOSPHOROUS 2.9 mg/dL (2.5-4.9)
[2023-07-18 12:21] LABS: BILIRUBIN,TOTAL 0.6 mg/dL (0.2-1); TOT PROT 6.4 g/dl (6.4-8.2)
[2023-07-18] MEDS ORDERED: POTASSIUM CHLORIDE ORAL LIQUID 20 MEQ/15 ML GT ONE (13:58)
[2023-07-18 15:25] VITALS: BP 147/95; PULSE 111; TEMP 97.7
== END 2023-07-18 17:06 | DRG 720 ==
LOC: JER 01:37 → JERBED 05:19 → J4S 23:53
PROVIDERS: ADMIT Internal Medicine; ATTEND Internal Medicine
PROC: 0D20XUZ Change Feeding Device in Upper Intestinal Tract, External Approach (ICD-10-PCS; principal; 2023-06-09)
PROC: 30233N1 Transfusion of Nonautologous Red Blood Cells into Peripheral Vein, Percutaneous Approach (ICD-10-PCS; 2023-06-30)
PROC: 2Y41X5Z Packing of Nasal Region using Packing Material (ICD-10-PCS; 2023-07-07)
PROC: 09JK8ZZ Inspection of Nasal Mucosa and Soft Tissue, Via Natural or Artificial Opening Endoscopic (ICD-10-PCS; 2023-07-07)
DX: A41.89 Other specified sepsis (principal); E78.5 Hyperlipidemia, unspecified; I12.9 Hypertensive chronic kidney disease with stage 1 through stage 4 chronic kidney disease, or unspecified chronic kidney disease; E11.22 Type 2 diabetes mellitus with diabetic chronic kidney disease; G93.41 Metabolic encephalopathy; E43 Unspecified severe protein-calorie malnutrition; J96.01 Acute respiratory failure with hypoxia; J15.1 Pneumonia due to Pseudomonas; E87.0 Hyperosmolality and hypernatremia; N18.4 Chronic kidney disease, stage 4 (severe); R65.21 Severe sepsis with septic shock; I69.351 Hemiplegia and hemiparesis following cerebral infarction affecting right dominant side; D63.1 Anemia in chronic kidney disease; N39.0 Urinary tract infection, site not specified; B96.5 Pseudomonas (aeruginosa) (mallei) (pseudomallei) as the cause of diseases classified elsewhere; N17.9 Acute kidney failure, unspecified; L89.152 Pressure ulcer of sacral region, stage 2; E87.5 Hyperkalemia; F03.918 Unspecified dementia, unspecified severity, with other behavioral disturbance; E83.52 Hypercalcemia; G89.29 Other chronic pain; D25.9 Leiomyoma of uterus, unspecified; E11.65 Type 2 diabetes mellitus with hyperglycemia; R19.09 Other intra-abdominal and pelvic swelling, mass and lump; R04.0 Epistaxis; E87.20 Acidosis, unspecified; I24.89 Other forms of acute ischemic heart disease; F13.20 Sedative, hypnotic or anxiolytic dependence, uncomplicated; R62.7 Adult failure to thrive; R33.9 Retention of urine, unspecified; J98.11 Atelectasis; R47.01 Aphasia; F32.9 Major depressive disorder, single episode, unspecified; K21.9 Gastro-esophageal reflux disease without esophagitis; Z68.23 Body mass index [BMI] 23.0-23.9, adult; D72.829 Elevated white blood cell count, unspecified; E11.621 Type 2 diabetes mellitus with foot ulcer; L97.418 Non-pressure chronic ulcer of right heel and midfoot with other specified severity; Z93.1 Gastrostomy status; Z43.1 Encounter for attention to gastrostomy
CPT/HCPCS: 0241U-QW; 36415; 36430; 36600; 70450-TC; 71045-TC-FY; 71250-TC; 73630-TC-RT-FY; 74018-TC-FY; 74176-TC; 76830-TC; 76856-TC; 80048; 80053; 80076; 80164; 81003; 82010; 82040; 82140; 82164; 82272; 82306; 82308; 82310; 82330; 82397; 82607; 82652; 82728; 82746; 82803; 82962; 83036; 83540; 83550; 83605; 83690; 83735; 83880; 83970; 84100; 84155; 84165; 84439; 84443; 84480; 84484; 85025; 85027; 85045; 85610; 85730; 86304; 86850; 86900; 86901; 86922; 87040; 87070; 87077; 87081; 87086; 87184; 87186; 87205; 87324; 87449; 87635; 87899; 93005; 93010; 93306-TC; 93926-TC; 93970-TC; 94640; 97116-GP; 97162-GP; 99285-25; G0480; J0897; J1644; P9058; Q5106

== ENCOUNTER 2024-07-15 09:05 | Inpatient (IN) | payer OTHER ==
[2024-07-15] MEDS ORDERED: MIDODRINE HCL 5 MG TABLET GT SCH (10:56)
[2024-07-15] MEDS ORDERED: SERTRALINE HCL 50 MG TABLET (FP) ONE (10:58)
[2024-07-15 11:00] LABS: BASO % 0.3 % (0-2.0); HEMATOCRIT 36.6 % (32.4-45.2); HEMOGLOBIN 12.6 GM/dL (10.7-15.3); LYMPH % 11.3 % (8-40); MCH 30.1 pg (25.7-33.7); MCHC 34.4 g/dl (32.0-36.0); MEAN CELL VOLUME 87.7 fl (80-96); MEAN PLT VOLUME 7.7 fl (7.5-11.1); MONO % 14.1 % (3.8-10.2); NEUT % 71.3 % (42.8-82.8); PLATELET COUNT 240 10^3/uL (134-434); RBC 4.17 M/mm3 (3.60-5.2); RDW 17.5 % (11.6-15.6); WHITE BLOOD COUNT 6.7 K/mm3 (4.0-10.0)
[2024-07-15 11:08] LABS: INR 0.87 (0.83-1.09); PROTHROMBIN TIME (PATIENT) 10.1 SEC (9.7-13.0)
[2024-07-15 11:09] LABS: ACTIVATED PTT 36.4 SECONDS (25.2-36.5)
[2024-07-15] MEDS: SERTRALINE HCL 25 MG TABLET (FP) PO SCH (11:11)
[2024-07-15] MEDS: SERTRALINE HCL 25 MG TABLET (FP) PO ONE (11:12)
[2024-07-15] MEDS: MIDODRINE HCL 5 MG TABLET PO SCH (11:12)
[2024-07-15 11:21] LABS: CHLORIDE 91 mmol/L (98-107); SODIUM 126 mmol/L (136-145)
[2024-07-15 11:22] LABS: ALBUMIN 3.2 g/dl (3.4-5.0); CALCIUM 12.2 mg/dL (8.5-10.1); POTASSIUM 6.3 mmol/L (3.5-5.1)
[2024-07-15 11:24] LABS: ANION GAP 7 mmol/L (4-13); CO2 29 mmol/L (21-32); GLUCOSE,RANDOM 102 mg/dL (74-106); MAGNESIUM 3.4 mg/dL (1.8-2.4)
[2024-07-15 11:26] LABS: CREATININE 5.1 mg/dL (0.55-1.3); PHOSPHOROUS 5.7 mg/dL (2.5-4.9); SGOT/AST 75 U/L (15-37)
[2024-07-15 11:27] LABS: BILIRUBIN,TOTAL 0.5 mg/dL (0.2-1); TOT PROT 9.5 g/dl (6.4-8.2)
[2024-07-15 11:29] LABS: ALK PHOS 165 U/L (45-117)
[2024-07-15 11:33] LABS: SGPT/ALT 42 U/L (13-61)
[2024-07-15 13:30] LABS: POTASSIUM 4.5 mmol/L (3.5-5.1)
[2024-07-15 14:51] LABS: N-TERMINAL BNP 2510.2 pg/ml (5-125)
[2024-07-15] MEDS ORDERED: SODIUM CHLORIDE 250 ML IV PRN ×3 (15:22→17:29)
[2024-07-15] MEDS ORDERED: LIDOCAINE HCL 1%, 10 MG/ML (20ML VIAL) ONE (15:24)
[2024-07-15] MEDS: ceFAZolin SODIUM 1 GM VIAL IVPB ONE (16:23)
[2024-07-15] MEDS ORDERED: INSULIN ASPART SLIDING SCALE (NOVOLOG) 1 VIAL SQ SCH ×2 (16:30→17:14)
[2024-07-15] MEDS: LIDOCAINE HCL 1%, 10 MG/ML (20ML VIAL) INF ONE (17:14)
[2024-07-15] MEDS ORDERED: LABETALOL HCL 5 MG/1 ML (100MG/20 ML VIAL) ONE (17:24)
[2024-07-15] MEDS: ONDANSETRON 4 MG/2 ML VIAL IVPUSH ONE (17:25)
[2024-07-15] MEDS ORDERED: ONDANSETRON 4 MG/2 ML VIAL ONE (17:25)
[2024-07-15] MEDS: LABETALOL HCL 5 MG/1 ML (100MG/20 ML VIAL) IVPUSH ONE (17:25)
[2024-07-15] MEDS: LABETALOL HCL 5 MG/1 ML (100MG/20 ML VIAL) IVPUSH PRN (17:46)
[2024-07-15] MEDS: SODIUM CHLORIDE 500 ML IV STA ×3 (19:20→19:23)
[2024-07-15] MEDS: INSULIN ASPART SLIDING SCALE (NOVOLOG) 1 VIAL SQ SCH ×2 (19:23→22:57)
[2024-07-15] MEDS: VALPROATE SODIUM 250 MG/5 ML UNIT DOSE CUP GT SCH (19:23)
[2024-07-15] MEDS ORDERED: cloNIDine HCL 0.1 MG TABLET PEG SCH ×2 (22:00)
[2024-07-15] MEDS ORDERED: hydrALAZINE HCL 10 MG TABLET PEG SCH ×2 (22:00)
[2024-07-15] MEDS ORDERED: INSULIN (LEVEMIR) 100 UNITS/ML UNITS SQ SCH ×2 (22:00)
[2024-07-15] MEDS ORDERED: VALPROATE SODIUM 250 MG/5 ML UNIT DOSE CUP PO SCH ×2 (22:00)
[2024-07-15] MEDS: hydrALAZINE HCL 10 MG TABLET PEG SCH (22:56)
[2024-07-15] MEDS: cloNIDine HCL 0.1 MG TABLET PEG SCH (22:56)
[2024-07-15] MEDS: VALPROATE SODIUM 250 MG/5 ML UNIT DOSE CUP PO SCH (22:56)
[2024-07-15] MEDS: INSULIN (LEVEMIR) 100 UNITS/ML UNITS SQ SCH (23:02)
[2024-07-16] MEDS: DEXTROSE 50%-WATER 25 GM/50 ML DISP.SYRIN IVPUSH ONE ×2 (06:59→16:51)
[2024-07-16 07:08] LABS: HEMATOCRIT 34.4 % (32.4-45.2); HEMOGLOBIN 11.9 GM/dL (10.7-15.3); MCH 30.3 pg (25.7-33.7); MCHC 34.6 g/dl (32.0-36.0); MEAN CELL VOLUME 87.5 fl (80-96); MEAN PLT VOLUME 7.3 fl (7.5-11.1); PLATELET COUNT 237 10^3/uL (134-434); RBC 3.94 M/mm3 (3.60-5.2); RDW 16.7 % (11.6-15.6); WHITE BLOOD COUNT 6.2 K/mm3 (4.0-10.0)
[2024-07-16 07:30] LABS: MAGNESIUM 3.3 mg/dL (1.8-2.4)
[2024-07-16 07:33] LABS: PHOSPHOROUS 6.7 mg/dL (2.5-4.9)
[2024-07-16] MEDS ORDERED: amLODIPine BESYLATE 10 MG TABLET (FP) GT SCH ×2 (10:00)
[2024-07-16] MEDS ORDERED: SERTRALINE HCL 25 MG TABLET (FP) PO SCH ×2 (10:00)
[2024-07-16] MEDS ORDERED: FAMOTIDINE 20 MG/2.5 ML ORAL LIQUID GT SCH ×2 (10:00)
[2024-07-16] MEDS ORDERED: POLYETHYLENE GLYCOL (HEALTHYLAX) 3350 17 GM PACKET GT SCH ×2 (10:00)
[2024-07-16] MEDS: POLYETHYLENE GLYCOL (HEALTHYLAX) 3350 17 GM PACKET GT SCH (10:42)
[2024-07-16] MEDS: amLODIPine BESYLATE 10 MG TABLET (FP) GT SCH (10:42)
[2024-07-16] MEDS: SERTRALINE HCL 25 MG TABLET (FP) PO SCH (10:42)
[2024-07-16] MEDS: FAMOTIDINE 20 MG/2.5 ML ORAL LIQUID GT SCH (10:42)
[2024-07-16 15:40] LABS: POTASSIUM 5.1 mmol/L (3.5-5.1)
[2024-07-16 15:42] LABS: CALCIUM 12.1 mg/dL (8.5-10.1)
[2024-07-16 15:43] LABS: ALBUMIN 3.2 g/dl (3.4-5.0); BLOOD UREA NITROGEN 88.2 mg/dL (7-18)
[2024-07-16 15:47] LABS: BILIRUBIN,TOTAL 0.3 mg/dL (0.2-1)
[2024-07-16 15:48] LABS: TOT PROT 8.5 g/dl (6.4-8.2)
[2024-07-16] MEDS ORDERED: DEXTROSE 50%-WATER 25 GM/50 ML DISP.SYRIN ONE (16:28)
[2024-07-16] MEDS: INSULIN ASPART SLIDING SCALE (NOVOLOG) 1 VIAL SQ SCH (16:51)
[2024-07-17 06:54] LABS: BASO % 0.4 % (0-2.0); HEMATOCRIT 31.8 % (32.4-45.2); HEMOGLOBIN 10.7 GM/dL (10.7-15.3); MCHC 33.6 g/dl (32.0-36.0); MEAN CELL VOLUME 89.3 fl (80-96); MONO % 18.7 % (3.8-10.2); NEUT % 67.9 % (42.8-82.8); PLATELET COUNT 222 10^3/uL (134-434); RBC 3.57 M/mm3 (3.60-5.2); RDW 16.6 % (11.6-15.6); WHITE BLOOD COUNT 5.2 K/mm3 (4.0-10.0)
[2024-07-17 07:26] LABS: CALCIUM 10.3 mg/dL (8.5-10.1)
[2024-07-17 07:27] LABS: ALBUMIN 2.7 g/dl (3.4-5.0); MAGNESIUM 2.7 mg/dL (1.8-2.4)
[2024-07-17 07:30] LABS: CREATININE 3.4 mg/dL (0.55-1.3); PHOSPHOROUS 4.1 mg/dL (2.5-4.9)
[2024-07-17 07:31] LABS: BILIRUBIN,TOTAL 0.2 mg/dL (0.2-1)
[2024-07-17 07:32] LABS: TOT PROT 7.5 g/dl (6.4-8.2)
[2024-07-17 07:43] LABS: BLOOD UREA NITROGEN 37.5 mg/dL (7-18)
[2024-07-17 09:03] VITALS: RESP 18
[2024-07-17] MEDS ORDERED: SODIUM CHLORIDE 250 ML IV PRN (11:54)
[2024-07-17 16:24] VITALS: BMI 21.7
[2024-07-17 19:16] VITALS: BP 135/77; PULSE 77; TEMP 98.7
[2024-07-18] MEDS ORDERED: HEPARIN NA (PORCINE) 5,000 UNITS/ML 1ML VIAL IVPUSH ONE (11:54)
== END 2024-07-17 23:46 | DRG 206 ==
LOC: JER 09:05 → JERBED 10:39 → J4W 21:00
PROVIDERS: ADMIT Internal Medicine; ATTEND Internal Medicine
PROC: B518ZZA Fluoroscopy of Superior Vena Cava, Guidance (ICD-10-PCS; 2024-07-15)
PROC: 02H633Z Insertion of Infusion Device into Right Atrium, Percutaneous Approach (ICD-10-PCS; principal; 2024-07-15 16:00)
DX: T82.524A Displacement of infusion catheter, initial encounter (principal); I13.2 Hypertensive heart and chronic kidney disease with heart failure and with stage 5 chronic kidney disease, or end stage renal disease; L89.152 Pressure ulcer of sacral region, stage 2; N18.6 End stage renal disease; E11.22 Type 2 diabetes mellitus with diabetic chronic kidney disease; E11.649 Type 2 diabetes mellitus with hypoglycemia without coma; E87.1 Hypo-osmolality and hyponatremia; I69.351 Hemiplegia and hemiparesis following cerebral infarction affecting right dominant side; I50.30 Unspecified diastolic (congestive) heart failure; F03.90 Unspecified dementia, unspecified severity, without behavioral disturbance, psychotic disturbance, mood disturbance, and anxiety; Y83.9 Surgical procedure, unspecified as the cause of abnormal reaction of the patient, or of later complication, without mention of misadventure at the time of the procedure; E83.39 Other disorders of phosphorus metabolism; E83.41 Hypermagnesemia
CPT/HCPCS: 0241U-QW; 36415; 71045-TC-FY; 76000-TC-FY; 80048; 80053; 82962; 83735; 83880; 84100; 85025; 85027; 85610; 85730; 86704; 86705; 86850; 86900; 86901; 87077; 87081; 87340; 87517; 93005; 93010; 94760; 97162-GP; 99285-25; C1750; C1769; J1644

== ENCOUNTER 2024-11-19 08:18 | Inpatient (IN) | payer OTHER ==
[2024-11-19 09:40] VITALS: BMI 27.4
[2024-11-19 09:58] LABS: VENOUS BASE EXCESS 1.7 mmol/L (-2-2); VENOUS PCO2 56.5 mmHg (38-52); VENOUS PH 7.322 (7.310-7.410)
[2024-11-19 10:02] LABS: HEMATOCRIT 32.3 % (34.1-44.9); MCHC 34.1 g/dl (32.2-35.5); MEAN CELL VOLUME 96.1 fl (79.4-94.8); MEAN PLT VOLUME 11.1 fl (9.4-12.3); PLATELET COUNT 318 x10^3/uL (182-369); RDW 13.2 % (12.4-16.4)
[2024-11-19 10:06] LABS: INR 0.98 (0.83-1.09); PROTHROMBIN TIME (PATIENT) 10.7 SEC (9.7-13.0)
[2024-11-19 10:08] LABS: ACTIVATED PTT 31.8 SECONDS (25.2-36.5)
[2024-11-19] MEDS ORDERED: AZITHROMYCIN IVPB 500 MG/250 ML BAG IVPB ONE (10:22)
[2024-11-19] MEDS ORDERED: PIPERACILLIN/TAZOB 4.5 GM 4.5 GM/100 ML BAG IVPB ONE ×2 (10:22→10:31)
[2024-11-19] MEDS ORDERED: VANCOMYCIN 1 GM PREMIX (F) 1 GM/200 ML BAG ONE (10:23)
[2024-11-19 10:26] LABS: CHLORIDE 88 mmol/L (98-107); SODIUM 127 mmol/L (136-145)
[2024-11-19 10:28] LABS: URINE APPEARANCE TURBID; URINE BILIRUBIN NEGATIVE (NEGATIVE); URINE COLOR DK YELLOW; URINE GLUCOSE (UA) NEGATIVE (NEGATIVE); URINE KETONE TRACE (NEGATIVE)
[2024-11-19 10:29] LABS: EPI CELLS 91.7 /uL (0-25.1); URINE LEUK ESTERASE 3+ (NEGATIVE); URINE NITRITE NEGATIVE (NEGATIVE); URINE PROTEIN 3+ (NEGATIVE); URINE RBC 9.7 /uL (0-23.9); URINE UROBILINOGEN 0.2 mg/dL (0.2-1.0)
[2024-11-19 10:29] LABS: ALBUMIN 2.8 g/dl (3.4-5.0); CALCIUM 10.8 mg/dL (8.5-10.1); CO2 25 mmol/L (21-32); GLUCOSE,RANDOM 172 mg/dL (74-106)
[2024-11-19 10:32] LABS: SGOT/AST 43 U/L (15-37); SGPT/ALT 24 U/L (13-61)
[2024-11-19 10:33] LABS: BILIRUBIN,TOTAL 0.4 mg/dL (0.2-1); TOT PROT 8.5 g/dl (6.4-8.2)
[2024-11-19 10:34] LABS: ALK PHOS 192 U/L (45-117)
[2024-11-19] MEDS: PIPERACILLIN/TAZOB 4.5 GM 4.5 GM in DEXTROSE 5%-WATER 100 ML IVPB ONE (10:41)
[2024-11-19 10:49] LABS: ANION GAP 14 mmol/L (4-13); POTASSIUM 6.4 mmol/L (3.5-5.1)
[2024-11-19] MEDS: VANCOMYCIN 1,000 MG in DEXTROSE 5%-WATER - 250 ML IVPB ONE (11:17)
[2024-11-19] MEDS ORDERED: SODIUM CHLORIDE 250 ML IV PRN (12:17)
[2024-11-19] MEDS: AZITHROMYCIN IVPB 500 MG in DEXTROSE 5%-WATER - 250 ML IVPB ONE (12:26)
[2024-11-19] MEDS ORDERED: POLYETHYLENE GLYCOL (HEALTHYLAX) 3350 17 GM PACKET GT PRN (12:30)
[2024-11-19] MEDS ORDERED: ALBUTEROL SO4 0.083% IH SOL 2.5 MG/3 ML VIAL.NEB. NEB PRN (12:30)
[2024-11-19] MEDS ORDERED: ACETAMINOPHEN 650 MG/20.3 ML ORAL SOLUTION (CUPS) PO PRN (12:30)
[2024-11-19 16:13] LABS: HCV DIAGNOSTIC IN-HOUSE W/RFLX NON-REACTIVE (NONREACTIVE)
[2024-11-19 16:15] LABS: CHLORIDE 86 mmol/L (98-107); SODIUM 125 mmol/L (136-145)
[2024-11-19 16:17] LABS: BLOOD UREA NITROGEN 92.6 mg/dL (7-18); CALCIUM 10.3 mg/dL (8.5-10.1); CO2 25 mmol/L (21-32); GLUCOSE,RANDOM 169 mg/dL (74-106)
[2024-11-19 16:19] LABS: ANION GAP 15 mmol/L (4-13); POTASSIUM 7.8 mmol/L (3.5-5.1)
[2024-11-19] MEDS ORDERED: PIPERACILLIN/TAZOB 2.25 GM 2.25 GM/50 ML BAG IVPB SCH (18:00)
[2024-11-19 20:49] LABS: MCHC 33.3 g/dl (32.2-35.5); MEAN CELL VOLUME 97.1 fl (79.4-94.8); MEAN PLT VOLUME 8.7 fl (9.4-12.3); PLATELET COUNT 385 x10^3/uL (182-369); RDW 13.3 % (12.4-16.4)
[2024-11-19 20:59] LABS: POTASSIUM 3.6 mmol/L (3.5-5.1)
[2024-11-19 21:01] LABS: ALBUMIN 3.1 g/dl (3.4-5.0); CALCIUM 9.5 mg/dL (8.5-10.1)
[2024-11-19 21:04] LABS: CREATININE 2.6 mg/dL (0.55-1.3)
[2024-11-19 21:07] LABS: BILIRUBIN,TOTAL 0.4 mg/dL (0.2-1); TOT PROT 8.8 g/dl (6.4-8.2)
[2024-11-19 21:25] LABS: BLOOD UREA NITROGEN 25.2 mg/dL (7-18)
[2024-11-19 21:57] LABS: ARTERIAL BLD GAS O2 SATURATION 98.8 % (95-98); ARTERIAL BLOOD GAS BASE EXCESS 6.7 mmol/L (-2-2); ARTERIAL BLOOD GAS PO2 128.7 mmHg (80-100)
[2024-11-19 21:58] LABS: ALLENS TEST POSITIVE
[2024-11-19] MEDS ORDERED: PIPERACILLIN/TAZOB 4.5 GM 4.5 GM/100 ML BAG IVPB SCH (22:00)
[2024-11-19] MEDS ORDERED: PIPERACILLIN/TAZOB 4.5 GM 4.5 GM in DEXTROSE 5%-WATER 100 ML IVPB SCH (22:00)
[2024-11-19] MEDS: ZINC SULFATE 220 MG CAPSULE (FP) GT SCH (22:55)
[2024-11-19] MEDS: VALPROATE SODIUM 250 MG/5 ML UNIT DOSE CUP PO SCH (22:55)
[2024-11-19] MEDS: HEPARIN NA (PORCINE) 5,000 UNITS/ML 1ML VIAL SQ SCH (23:03)
[2024-11-19] MEDS: SILVER SULFADIAZINE 1% TOP CREAM 50 GM JAR TP SCH (23:40)
[2024-11-20] MEDS ORDERED: SODIUM CHLORIDE 250 ML IV PRN ×2 (00:01→11:46)
[2024-11-20] MEDS ORDERED: POLYETHYLENE GLYCOL (HEALTHYLAX) 3350 17 GM PACKET GT PRN (00:01)
[2024-11-20] MEDS ORDERED: ALBUTEROL SO4 0.083% IH SOL 2.5 MG/3 ML VIAL.NEB. NEB PRN (00:01)
[2024-11-20] MEDS ORDERED: ACETAMINOPHEN 650 MG/20.3 ML ORAL SOLUTION (CUPS) PO PRN (00:01)
[2024-11-20] MEDS: PIPERACILLIN/TAZOB 2.25 GM 2.25 GM/50 ML BAG IVPB SCH (02:28)
[2024-11-20] MEDS: HEPARIN NA (PORCINE) 5,000 UNITS/ML 1ML VIAL SQ SCH (06:53)
[2024-11-20] MEDS: SILVER SULFADIAZINE 1% TOP CREAM 50 GM JAR TP SCH (06:57)
[2024-11-20 08:31] LABS: POTASSIUM 4.2 mmol/L (3.5-5.1)
[2024-11-20 08:40] LABS: BLOOD UREA NITROGEN 31.8 mg/dL (7-18); MAGNESIUM 2.7 mg/dL (1.8-2.4)
[2024-11-20 08:43] LABS: CREATININE 3.1 mg/dL (0.55-1.3); HEMATOCRIT 28.3 % (34.1-44.9); HEMOGLOBIN 9.3 g/dL (11.2-15.7); MCHC 32.9 g/dl (32.2-35.5); MEAN CELL VOLUME 100.7 fl (79.4-94.8); MEAN PLT VOLUME 9.2 fl (9.4-12.3); PHOSPHOROUS 4.6 mg/dL (2.5-4.9); PLATELET COUNT 367 x10^3/uL (182-369); RDW 13.3 % (12.4-16.4)
[2024-11-20] MEDS ORDERED: VITAMIN B COMP W-C 1 EA TABLET (NEPHRO-VITE) GT SCH (10:00)
[2024-11-20] MEDS ORDERED: ALPRAZolam 0.25 MG TABLET GT SCH (10:00)
[2024-11-20] MEDS ORDERED: amLODIPine BESYLATE 10 MG TABLET (FP) GT SCH (10:00)
[2024-11-20] MEDS ORDERED: FAMOTIDINE 20 MG/2.5 ML ORAL LIQUID GT SCH (10:00)
[2024-11-20] MEDS ORDERED: SERTRALINE HCL 25 MG TABLET (FP) GT SCH (10:00)
[2024-11-20] MEDS ORDERED: SODIUM CHLORIDE 1,000 ML IV SCH (10:45)
[2024-11-20] MEDS: amLODIPine BESYLATE 10 MG TABLET (FP) GT SCH (11:07)
[2024-11-20] MEDS: VITAMIN B COMP W-C 1 EA TABLET (NEPHRO-VITE) GT SCH (11:08)
[2024-11-20] MEDS: FAMOTIDINE 20 MG/2.5 ML ORAL LIQUID GT SCH (11:11)
[2024-11-20] MEDS: VALPROATE SODIUM 250 MG/5 ML UNIT DOSE CUP GT SCH (11:11)
[2024-11-20] MEDS: SERTRALINE HCL 25 MG TABLET (FP) GT SCH (11:22)
[2024-11-20] MEDS: DEXTROSE 5%-NORMAL SALINE 1,000 ML IV SCH ×2 (11:40→13:16)
[2024-11-20] MEDS: ALPRAZolam 0.25 MG TABLET GT SCH (13:17)
[2024-11-20] MEDS: PANTOPRAZOLE SODIUM 40 MG VIAL IVPUSH SCH (17:11)
[2024-11-20] MEDS: ZINC SULFATE 220 MG CAPSULE (FP) GT SCH (22:26)
[2024-11-21 08:04] LABS: ABSOLUTE IMMATURE GRANULOCYTES 0.06 x10^3/uL (0.0-0.031); BASOPHILS # 0.06 x10^3/uL (0.01-0.08); EOSINOPHIL % 3.2 % (0.7-5.8); EOSINOPHILS # 0.35 x10^3/uL (0.04-0.36); HEMATOCRIT 28.8 % (34.1-44.9); HEMOGLOBIN 9.2 g/dL (11.2-15.7); MCHC 31.9 g/dl (32.2-35.5); MONOCYTE # 1.12 x10^3/uL (0.24-0.86); MONOCYTE % 10.2 % (4.7-12.5); RDW 13.2 % (12.4-16.4)
[2024-11-21 08:26] LABS: BLOOD UREA NITROGEN 40.1 mg/dL (7-18); CALCIUM 9.6 mg/dL (8.5-10.1)
[2024-11-21 08:27] LABS: ALBUMIN 2.6 g/dl (3.4-5.0); MAGNESIUM 2.9 mg/dL (1.8-2.4)
[2024-11-21 08:30] LABS: CREATININE 4.3 mg/dL (0.55-1.3); PHOSPHOROUS 5.7 mg/dL (2.5-4.9)
[2024-11-21 08:31] LABS: BILIRUBIN,TOTAL 0.5 mg/dL (0.2-1); TOT PROT 7.9 g/dl (6.4-8.2)
[2024-11-21] MEDS: EPOETIN ALFA-EPBX 10,000 UNIT/ML VIAL SQ ONE (11:42)
[2024-11-21] MEDS: PANTOPRAZOLE 40 MG TABLET PO SCH (12:24)
[2024-11-21 15:00] VITALS: BP 102/72; PULSE 83; RESP 18; TEMP 99.3
== END 2024-11-21 18:24 | DRG 720 ==
LOC: JER 08:18 → JERBED 10:55 → J6S 17:35 → J4S 19:23
PROVIDERS: ADMIT Internal Medicine; ATTEND Internal Medicine
PROC: 5A1D70Z Performance of Urinary Filtration, Intermittent, Less than 6 Hours Per Day (ICD-10-PCS; principal; 2024-11-19)
PROC: 5A1D70Z Performance of Urinary Filtration, Intermittent, Less than 6 Hours Per Day (ICD-10-PCS; 2024-11-21)
DX: A41.89 Other specified sepsis (principal); R65.20 Severe sepsis without septic shock; J18.9 Pneumonia, unspecified organism; J96.01 Acute respiratory failure with hypoxia; I69.351 Hemiplegia and hemiparesis following cerebral infarction affecting right dominant side; R53.2 Functional quadriplegia; F03.90 Unspecified dementia, unspecified severity, without behavioral disturbance, psychotic disturbance, mood disturbance, and anxiety; G93.41 Metabolic encephalopathy; E87.1 Hypo-osmolality and hyponatremia; I12.0 Hypertensive chronic kidney disease with stage 5 chronic kidney disease or end stage renal disease; L89.152 Pressure ulcer of sacral region, stage 2; E11.22 Type 2 diabetes mellitus with diabetic chronic kidney disease; B96.4 Proteus (mirabilis) (morganii) as the cause of diseases classified elsewhere; N18.6 End stage renal disease; N39.0 Urinary tract infection, site not specified; Z99.2 Dependence on renal dialysis; N17.9 Acute kidney failure, unspecified; K92.0 Hematemesis; E87.5 Hyperkalemia; I25.10 Atherosclerotic heart disease of native coronary artery without angina pectoris; E78.5 Hyperlipidemia, unspecified; J98.11 Atelectasis; I69.320 Aphasia following cerebral infarction; Z74.01 Bed confinement status; Z93.1 Gastrostomy status
CPT/HCPCS: 0241U-QW; 36415; 36600; 70450-TC; 71045-TC-FY; 71250-TC; 80048; 80053; 80164; 81003; 82272; 82803; 82962; 82977; 83605; 83735; 84100; 84484; 85025; 85027; 85610; 85730; 86803; 87040; 87086; 87186; 87340; 93005; 93010; 99291; J1644; Q5106

== ENCOUNTER 2025-02-04 09:16 | Observation (INO) | payer OTHER ==
[2025-02-04 12:53] LABS: ABSOLUTE IMMATURE GRANULOCYTES 0.04 x10^3/uL (0.0-0.031); BASOPHILS # 0.04 x10^3/uL (0.01-0.08); EOSINOPHIL % 2.4 % (0.7-5.8); EOSINOPHILS # 0.21 x10^3/uL (0.04-0.36); HEMATOCRIT 33.3 % (34.1-44.9); HEMOGLOBIN 11.2 g/dL (11.2-15.7); MCHC 33.6 g/dl (32.2-35.5); MEAN CELL VOLUME 94.1 fl (79.4-94.8); MEAN PLT VOLUME 9.7 fl (9.4-12.3); MONOCYTE # 0.99 x10^3/uL (0.24-0.86); MONOCYTE % 11.3 % (4.7-12.5); PLATELET COUNT 255 x10^3/uL (182-369); RDW 13.7 % (12.4-16.4)
[2025-02-04 13:01] LABS: INR 0.93 (0.83-1.09); PROTHROMBIN TIME (PATIENT) 10.1 SEC (9.7-13.0)
[2025-02-04 13:19] LABS: CHLORIDE 87 mmol/L (98-107); POTASSIUM 4.8 mmol/L (3.5-5.1); SODIUM 126 mmol/L (136-145)
[2025-02-04 13:21] LABS: CALCIUM 12.5 mg/dL (8.5-10.1)
[2025-02-04 13:22] LABS: ALBUMIN 3.1 g/dl (3.4-5.0); ANION GAP 10 mmol/L (4-13); CO2 28 mmol/L (21-32); GLUCOSE,RANDOM 94 mg/dL (74-106)
[2025-02-04 13:23] LABS: BLOOD UREA NITROGEN 107.8 mg/dL (7-18)
[2025-02-04 13:25] LABS: SGOT/AST 13 U/L (15-37); SGPT/ALT 12 U/L (13-61)
[2025-02-04 13:26] LABS: BILIRUBIN,TOTAL 0.3 mg/dL (0.2-1); TOT PROT 8.1 g/dl (6.4-8.2)
[2025-02-04 13:27] LABS: ALK PHOS 142 U/L (45-117)
[2025-02-04] MEDS ORDERED: DEXTROSE 50%-WATER 25 GM/50 ML DISP.SYRIN ONE (13:50)
[2025-02-04] MEDS: DEXTROSE 50%-WATER - 25 GM/50 ML VIAL IVPUSH ONE (13:55)
[2025-02-04] MEDS ORDERED: SODIUM CHLORIDE 250 ML IV PRN (15:04)
[2025-02-04] MEDS ORDERED: ALBUTEROL SO4 0.083% IH SOL 2.5 MG/3 ML VIAL.NEB. NEB PRN (16:45)
[2025-02-04] MEDS: HEPARIN NA (PORCINE) 5,000 UNITS/ML 1ML VIAL SQ SCH (22:14)
[2025-02-05] MEDS: DEXTROSE 50%-WATER 25 GM/50 ML DISP.SYRIN IVPUSH ONE ×3 (03:19→16:54)
[2025-02-05] MEDS ORDERED: DEXTROSE 5%-WATER - 1,000 ML IV SCH (05:00)
[2025-02-05 08:01] LABS: CHLORIDE 87 mmol/L (98-107); POTASSIUM 5.3 mmol/L (3.5-5.1); SODIUM 126 mmol/L (136-145)
[2025-02-05 08:04] LABS: CALCIUM 12.2 mg/dL (8.5-10.1)
[2025-02-05 08:05] LABS: ANION GAP 15 mmol/L (4-13); CO2 24 mmol/L (21-32); GLUCOSE,RANDOM 186 mg/dL (74-106)
[2025-02-05 08:08] LABS: CREATININE 6.8 mg/dL (0.55-1.3)
[2025-02-05 08:36] LABS: BLOOD UREA NITROGEN 118.8 mg/dL (7-18)
[2025-02-05 10:53] LABS: HEPATITIS B SURF AG NON-MATERN NON-REACTIVE (NONREACTIVE)
[2025-02-05] MEDS ORDERED: HEPARIN NA (PORCINE) 5,000 UNITS/ML 1ML VIAL ONE (11:09)
[2025-02-05] MEDS ORDERED: LIDOCAINE HCL 1%, 10 MG/ML (20ML VIAL) ONE (11:09)
[2025-02-05 11:22] LABS: HCV DIAGNOSTIC IN-HOUSE W/RFLX NON-REACTIVE (NONREACTIVE)
[2025-02-05] MEDS ORDERED: MIDAZOLAM HCL 2 MG/2 ML SINGLE DOSE VIAL ONE (11:48)
[2025-02-05] MEDS: ceFAZolin SODIUM 1 GM VIAL IVPB ONE ×2 (11:59)
[2025-02-05] MEDS: LIDOCAINE HCL 1%, 10 MG/ML (50 mL VIAL) INF ONE ×3 (12:03)
[2025-02-05] MEDS ORDERED: ALBUTEROL SO4 0.083% IH SOL 2.5 MG/3 ML VIAL.NEB. NEB PRN (12:52)
[2025-02-05] MEDS ORDERED: SODIUM CHLORIDE 250 ML IV PRN (12:52)
[2025-02-05] MEDS: LACTATED RINGERS SOLUTION 1,000 ML IV SCH (13:03)
[2025-02-05] MEDS ORDERED: ONDANSETRON HCL 4 MG/5 ML UD CUPS GT PRN (15:47)
[2025-02-05] MEDS ORDERED: PETROLATUM,WHITE OINTMENT 3.5 OZ JAR TP PRN (15:47)
[2025-02-05] MEDS: HEPARIN NA (PORCINE) 5,000 UNITS/ML 1ML VIAL SQ SCH (16:05)
[2025-02-05] MEDS: VALPROATE SODIUM 250 MG/5 ML UNIT DOSE CUP PO SCH (21:15)
[2025-02-05] MEDS ORDERED: ZINC SULFATE 220 MG TABLET GT SCH (22:00)
[2025-02-05] MEDS: ZINC SULFATE 220 MG CAPSULE (FP) GT SCH (22:04)
[2025-02-06] MEDS: MINERAL OIL/PET HY-PHL TOPICAL OINTMENT 454 GM JAR TP PRN (06:50)
[2025-02-06] MEDS: amLODIPine BESYLATE 10 MG TABLET (FP) GT SCH ×2 (08:20→11:52)
[2025-02-06] MEDS: ALPRAZolam 0.25 MG TABLET GT SCH ×2 (08:21→11:21)
[2025-02-06] MEDS: FAMOTIDINE 20 MG/2.5 ML ORAL LIQUID GT SCH ×2 (08:21→11:21)
[2025-02-06 08:23] LABS: ABSOLUTE IMMATURE GRANULOCYTES 0.02 x10^3/uL (0.0-0.031); BASOPHILS # 0.03 x10^3/uL (0.01-0.08); EOSINOPHIL % 2.4 % (0.7-5.8); EOSINOPHILS # 0.13 x10^3/uL (0.04-0.36); HEMATOCRIT 34.7 % (34.1-44.9); HEMOGLOBIN 11.4 g/dL (11.2-15.7); MCHC 32.9 g/dl (32.2-35.5); MEAN CELL VOLUME 95.6 fl (79.4-94.8); MEAN PLT VOLUME 9.5 fl (9.4-12.3); MONOCYTE # 0.93 x10^3/uL (0.24-0.86); MONOCYTE % 17.4 % (4.7-12.5); PLATELET COUNT 215 x10^3/uL (182-369); RDW 13.7 % (12.4-16.4)
[2025-02-06] MEDS: SERTRALINE HCL 25 MG TABLET (FP) GT SCH ×2 (08:43→11:21)
[2025-02-06 09:15] LABS: POTASSIUM 3.5 mmol/L (3.5-5.1)
[2025-02-06 09:16] LABS: ALBUMIN 2.8 g/dl (3.4-5.0); CALCIUM 10.6 mg/dL (8.5-10.1)
[2025-02-06 09:19] LABS: CREATININE 3.8 mg/dL (0.55-1.3)
[2025-02-06 09:22] LABS: BILIRUBIN,TOTAL 0.2 mg/dL (0.2-1); TOT PROT 7.6 g/dl (6.4-8.2)
[2025-02-06 09:52] LABS: BLOOD UREA NITROGEN 46.5 mg/dL (7-18)
[2025-02-06] MEDS: FERROUS SULFATE 220 MG/5 ML ELIXIR GT SCH (11:20)
[2025-02-06] MEDS: VITAMIN B COMP W-C 1 EA TABLET (NEPHRO-VITE) GT SCH (11:21)
[2025-02-06 14:23] VITALS: BMI 24.5
[2025-02-06] MEDS ORDERED: SODIUM CHLORIDE 250 ML IV PRN (15:05)
[2025-02-06] MEDS: VALPROATE SODIUM 250 MG/5 ML UNIT DOSE CUP GT SCH ×2 (23:06→23:09)
[2025-02-07 08:12] LABS: HEMATOCRIT 32.4 % (34.1-44.9); HEMOGLOBIN 10.5 g/dL (11.2-15.7); MCHC 32.4 g/dl (32.2-35.5); MEAN CELL VOLUME 97.6 fl (79.4-94.8); MEAN PLT VOLUME 9.1 fl (9.4-12.3); PLATELET COUNT 218 x10^3/uL (182-369); RDW 13.9 % (12.4-16.4)
[2025-02-07 09:03] LABS: POTASSIUM 3.8 mmol/L (3.5-5.1)
[2025-02-07 09:19] LABS: ALBUMIN 2.9 g/dl (3.4-5.0); BLOOD UREA NITROGEN 69.2 mg/dL (7-18); CALCIUM 11.3 mg/dL (8.5-10.1)
[2025-02-07 09:20] LABS: BILIRUBIN,TOTAL 0.2 mg/dL (0.2-1)
[2025-02-07 09:21] LABS: TOT PROT 7.7 g/dl (6.4-8.2)
[2025-02-07 09:23] LABS: CREATININE 5.3 mg/dL (0.55-1.3)
[2025-02-07] MEDS ORDERED: VALPROATE SODIUM 250 MG/5 ML UNIT DOSE CUP GT SCH (10:00)
[2025-02-07] MEDS: HEPARIN NA (PORCINE) 5,000 UNITS/ML 1ML VIAL IVPUSH ONE (10:23)
[2025-02-07 14:34] VITALS: BP 110/81; PULSE 88; RESP 16; TEMP 98.2
== END 2025-02-07 18:18 ==
LOC: JER 09:16 → INTOOBSV 13:14 → JERBED 13:14 → J7W 20:55
PROVIDERS: ADMIT Internal Medicine; ATTEND Internal Medicine
PROC: 3E03329 Introduction of Other Anti-infective into Peripheral Vein, Percutaneous Approach (ICD-10-PCS; 2025-02-04)
PROC: 3E0337Z Introduction of Electrolytic and Water Balance Substance into Peripheral Vein, Percutaneous Approach (ICD-10-PCS; 2025-02-04)
PROC: 3E023GC Introduction of Other Therapeutic Substance into Muscle, Percutaneous Approach (ICD-10-PCS; 2025-02-04)
PROC: 3E033GC Introduction of Other Therapeutic Substance into Peripheral Vein, Percutaneous Approach (ICD-10-PCS; 2025-02-04)
PROC: 0JHD3XZ Insertion of Tunneled Vascular Access Device into Right Upper Arm Subcutaneous Tissue and Fascia, Percutaneous Approach (ICD-10-PCS; principal; 2025-02-05 11:00)
DX: T82.42XA Displacement of vascular dialysis catheter, initial encounter (principal); X58.XXXA Exposure to other specified factors, initial encounter; N18.6 End stage renal disease; E11.9 Type 2 diabetes mellitus without complications; Z93.1 Gastrostomy status; R41.82 Altered mental status, unspecified; Z88.8 Allergy status to other drugs, medicaments and biological substances; Y99.8 Other external cause status
CPT/HCPCS: 36415; 71045-TC-FY; 76000-TC-FY; 80048; 80053; 82962; 83735; 85025; 85027; 85610; 86704; 86803; 86850; 86900; 86901; 87340; 87517; 93005; 93010; 94760; 96361; 96372; 96374; 96375; 99285-25; C1750; G0378; J1644